=== PATIENT | male | born 1970 | race Caucasian/White ===

== ENCOUNTER 2018-04-22 20:05 | Emergency (ER) | payer BC, OTHER ==
[2018-04-22 20:12] VITALS: BMI 36.6
[2018-04-22] MEDS ORDERED: SODIUM CHLORIDE 0.9% 500 ML INFUS.BAG IV ONE (20:24)
[2018-04-22] MEDS ORDERED: ACETAMINOPHEN 1000 MG/100 ML VIAL (NON FORMULARY) IVPB ONE (20:24)
[2018-04-22] MEDS ORDERED: ACETAMINOPHEN INJECTION 100 ML IVPB ONE (20:31)
[2018-04-22 20:56] LABS: HEMATOCRIT 43.5 % (35.4-49); HEMOGLOBIN 14.7 GM/dl (11.7-16.9); MCH 30.8 pg (25.7-33.7); MCHC 33.8 g/dl (32.0-35.9); MEAN CELL VOLUME 91.3 fl (80-96); MEAN PLT VOLUME 8.6 fl (7.5-11.1); PLATELET COUNT 255 K/MM3 (134-434); RBC 4.76 M/mm3 (4.00-5.60); RDW 14.1 % (11.9-15.9); WHITE BLOOD COUNT 15.1 K/mm3 (4.0-10.8)
[2018-04-22 21:00] LABS: URINE APPEARANCE Clear; URINE BILIRUBIN Negative (NEGATIVE); URINE COLOR Yellow; URINE GLUCOSE (UA) Negative (NEGATIVE); URINE KETONE Negative (NEGATIVE); URINE LEUK ESTERASE Negative (NEGATIVE); URINE NITRITE Negative (NEGATIVE); URINE PROTEIN Negative (NEGATIVE); URINE UROBILINOGEN 0.2 (0.2-1.0)
[2018-04-22 21:10] LABS: ALBUMIN 3.7 g/dl (3.5-5.0); ALK PHOS 54 U/L (32-92); ANION GAP 5 MMOL/L (8-16); BILIRUBIN,TOTAL 0.6 mg/dl (0.2-1.0); BLOOD UREA NITROGEN 16 mg/dl (7-18); CALCIUM 8.7 mg/dl (8.4-10.2); CHLORIDE 105 mmol/L (98-107); CO2 24 mmol/L (22-28); CREATININE 1.1 mg/dl (0.6-1.3); GLUCOSE,RANDOM 112 mg/dl (74-106); POTASSIUM 4.1 mmol/L (3.5-5.1); SGOT/AST 21 U/L (10-42); SGPT/ALT 32 U/L (10-40); SODIUM 134 mmol/L (136-145); TOT PROT 6.6 g/dl (6.4-8.3)
[2018-04-22 21:10] LABS: URINE BACTERIA 2+ /hpf (NEGATIVE); URINE WBC 0-2 (0-2)
--- NOTE | 2018-04-22 21:13 | PDOC ---
History of Present Illness - General History Source: Patient Exam Limitations: No Limitations <Davion Merrill - Last Filed: 04/22/18 22:35> - History of Present Illness Initial Comments: This patient is a 47 year old male with PMHx of type 2 diabetes (on insulin), gout, and rheumatoid arthritis (not on steroids), who presents with 2 days of generalized malaise. Patient states that 2 days ago he began feeling unwell and states that "it hurts all over". He also notes some chest tightness especially when he leans forward or does any strenuous activity. He also states that he loses his breath as well during strenuous activity. Patient states that for about 2 months he was having issues with his insurance and therefore was not taking his diabetes medication. He states that he has been able to sort out his insurance and is now taking his insulin on a regular basis. Patient also notes gout flare-up on his b/l elbows that has worsened in the past two days. He states that his elbows have never been this large and hard. Patient states that he took Motrin at 11am today. He denies any recent cough, nausea, vomiting, diarrhea, or dysuria. Denies recent travel or sick contacts. He states that he has never had a stress test or echocardiogram. Surgical history: Right foot arthroscopic surgery twice. Family medical history: Diabetes, CAD, [place] Social history: Denies alcohol tobacco or IV drug use. PCP: Dr. Oziel Burirs Allergies: Penicillin <Shira Orlando - Last Filed: 04/22/18 22:54> - General Chief Complaint: Pain Stated Complaint: GENERAL BODY ACHES Time Seen by Provider: 04/22/18 20:15 Past History - Past Medical History Anemia: No Asthma: No Cancer: No Cardiac Disorders: No CVA: No COPD: No CHF: No Dementia: No Diabetes: Yes GI Disorders: No Disorders: No HTN: No Hypercholesterolemia: No Liver Disease: No Seizures: No Thyroid Disease: No Other medical history: GOUT, RA - Surgical History Abdominal Surgery: No Appendectomy: No Cardiac Surgery: No Cholecystectomy: No Lung Surgery: No Neurologic Surgery: No Orthopedic Surgery: Yes (right ankle) - Immunization History Immunization Up to Date: Yes - Suicide/Smoking/Psychosocial Hx Smoking Status: No Smoking History: Former smoker Have you smoked in the past 12 months: No Number of Cigarettes Smoked Daily: 0 If you are a former smoker, when did you quit?: teenager Information on smoking cessation initiated: No Hx Alcohol Use: No Drug/Substance Use Hx: No Substance Use Type: None Hx Substance Use Treatment: No <Davion Merrill - Last Filed: 04/22/18 22:35> <Shira Orlando - Last Filed: 04/22/18 22:54> - Past Medical History Allergies/Adverse Reactions: Allergies Allergy/AdvReac Type Severity Reaction Status Date / Time Penicillins Allergy Severe Hives Verified 05/14/16 15:54 Home Medications: Ambulatory Orders Ibuprofen [Motrin Ib] 800 mg PO ONCE 04/22/18 Sulfamethoxazole/Trimethoprim [Bactrim Ds -] 1 tab PO BID #14 tablet 04/22/18 Sulfamethoxazole/Trimethoprim [Bactrim Ds -] 1 tab PO BID #14 tablet 04/22/18 Review of Systems - Review of Systems Comments:: GENERAL/CONSTITUTIONAL: +fever, generalized malaise. No weakness. HEAD, EYES, EARS, NOSE AND THROAT: No change in vision. No ear pain or discharge. No sore throat. CARDIOVASCULAR: +chest tightness, +difficulty breathing. RESPIRATORY: No cough, wheezing, or hemoptysis. GASTROINTESTINAL: No nausea, vomiting, diarrhea or constipation. GENITOURINARY: No dysuria, frequency, or change in urination. MUSCULOSKELETAL: +b/l elbow swelling (gout). No neck or back pain. SKIN: No rash NEUROLOGIC: No headache, vertigo, loss of consciousness, or change in strength/ sensation. ENDOCRINE: No increased thirst. No abnormal weight change. HEMATOLOGIC/LYMPHATIC: No anemia, easy bleeding, or history of blood clots. ALLERGIC/IMMUNOLOGIC: No hives or skin allergy. <Shira Orlando - Last Filed: 04/22/18 22:54> *Physical Exam - Vital Signs Last Vital Signs Temp Pulse Resp BP Pulse Ox 101.5 F H 104 H 16 155/92 97 04/22/18 20:09 04/22/18 20:09 04/22/18 20:09 04/22/18 20:09 04/22/18 20:09 <Davion Merrill - Last Filed: 04/22/18 22:35> - Vital Signs Last Vital Signs Temp Pulse Resp BP Pulse Ox 101.5 F H 104 H 16 155/92 97 04/22/18 20:09 04/22/18 20:09 04/22/18 20:09 04/22/18 20:09 04/22/18 20:09 - Physical Exam Comments: GENERAL: Awake, alert, and fully oriented, in no acute distress HEAD: No signs of trauma EYES: PERRLA, EOMI, sclera anicteric, conjunctiva clear ENT: Auricles normal inspection, hearing grossly normal, nares patent. Moist mucosa LUNGS: Breath sounds equal, clear to auscultation bilaterally. No wheezes, and no crackles HEART: Regular rate and rhythm, normal S1 and S2, no murmurs, rubs or gallops ABDOMEN: Soft, nontender, normoactive bowel sounds. No guarding, no rebound. No masses EXTREMITIES: Normal range of motion, errythema and warm to touch over left elbow. FROM. No bony tenderness. B/l olecranon bursitis. No clubbing or cyanosis. NEUROLOGICAL: Cranial nerves II through XII grossly intact. Normal speech, normal gait SKIN: Warm, Dry, normal turgor, no rashes or lesions noted. <Shira Orlando - Last Filed: 04/22/18 22:54> Heart Score/ECG Review #1 ECG reviewed & interpreted by me at: 21:00 04/22/18 22:21 NSR 104, LVH, no std/jon, normal axis, normal intervals, QTC 420 msec <Davion Merrill - Last Filed: 04/22/18 22:35> ED Treatment Course - LABORATORY CBC & Chemistry Diagram: 04/22/18 20:35 04/22/18 20:35 - ADDITIONAL ORDERS Additional order review: Laboratory Results 04/22/18 04/22/18 20:53 20:35 Sodium 134 L Potassium 4.1 Chloride 105 Carbon Dioxide 24 Anion Gap 5 L BUN 16 Creatinine 1.1 Creat Clearance w eGFR > 60 Random Glucose 112 H D Calcium 8.7 Total Bilirubin 0.6 AST 21 D ALT 32 D Alkaline Phosphatase 54 Total Protein 6.6 Albumin 3.7 Urine Color Yellow Urine Appearance Clear Urine pH 5.0 Ur Specific [place] 1.020 Urine Protein Negative Urine Glucose (UA) Negative Urine Ketones Negative Urine Blood 1+ H Urine Nitrite Negative Urine Bilirubin Negative Urine Urobilinogen 0.2 Ur Leukocyte Esterase Negative Urine RBC 5-10 Urine WBC 0-2 Urine Bacteria 2+ 04/22/18 20:35 RBC 4.76 MCV 91.3 MCHC 33.8 RDW 14.1 MPV 8.6 D Neutrophils % No Result Required. Lymphocytes % No Result Required. - RADIOLOGY Radiology Studies Ordered: Category Date Time Status CHEST PA & LAT [RAD] Stat Radiology 04/22/18 20:24 Taken - Medications Given in the ED: ED Medications Discontinued Medications Generic Name Dose Route Start Last Admin Trade Name Freq PRN Reason Stop Dose Admin Acetaminophen 1,000 mg 04/22/18 20:24 04/22/18 20:45 Ofirmev Injection - IVPB 04/22/18 20:25 1,000 mg ONCE ONE Administration Sodium Chloride 1,000 ml 04/22/18 20:24 04/22/18 20:44 Normal Saline - IV 04/22/18 20:25 1,000 ml ONCE ONE Administration <Davion Merrill - Last Filed: 04/22/18 22:35> - LABORATORY CBC & Chemistry Diagram: 04/22/18 20:35 04/22/18 20:35 - ADDITIONAL ORDERS Additional order review: Laboratory Results 04/22/18 04/22/18 20:53 20:35 Sodium 134 L Potassium 4.1 Chloride 105 Carbon Dioxide 24 Anion Gap 5 L BUN 16 Creatinine 1.1 Creat Clearance w eGFR > 60 Random Glucose 112 H D Calcium 8.7 Total Bilirubin 0.6 AST 21 D ALT 32 D Alkaline Phosphatase 54 Total Protein 6.6 Albumin 3.7 Urine Color Yellow Urine Appearance Clear Urine pH 5.0 Ur Specific [place] 1.020 Urine Protein Negative Urine Glucose (UA) Negative Urine Ketones Negative Urine Blood 1+ H Urine Nitrite Negative Urine Bilirubin Negative Urine Urobilinogen 0.2 Ur Leukocyte Esterase Negative Urine RBC 5-10 Urine WBC 0-2 Urine Bacteria 2+ 04/22/18 20:35 RBC 4.76 MCV 91.3 MCHC 33.8 RDW 14.1 MPV 8.6 D Neutrophils % No Result Required. Lymphocytes % No Result Required. - Medications Given in the ED: ED Medications Discontinued Medications Generic Name Dose Route Start Last Admin Trade Name Freq PRN Reason Stop Dose Admin Acetaminophen 1,000 mg 04/22/18 20:24 04/22/18 20:45 Ofirmev Injection - IVPB 04/22/18 20:25 1,000 mg ONCE ONE Administration Sodium Chloride 1,000 ml 04/22/18 20:24 04/22/18 20:44 Normal Saline - IV 04/22/18 20:25 1,000 ml ONCE ONE Administration <Shira Orlando - Last Filed: 04/22/18 22:54> Medical Decision Making - Medical Decision Making 04/22/18 22:28 A portion of this note was documented by scribe services under my direction. I have reviewed the details of the note, within reason, and agree with the documentation with the following case summary and management plan written by me. Patient treated in the ED. Nursing notes are reviewed and incorporated into the medical decision-making. Vital signs reviewed. Peripheral IV access obtained by the nurse, laboratory studies are drawn and sent, reviewed and interpreted by myself. Vital Signs Temp Pulse Resp BP Pulse Ox 99.2 F 98 H 16 126/75 97 04/22/18 21:55 04/22/18 21:55 04/22/18 21:55 04/22/18 21:55 04/22/18 21:55 47-year-old male with history of diabetes, rheumatoid arthritis, gout presents with body aches and fevers for 2 days. The patient reports no sick contacts or recent travels. Noted that he is feeling general body aches. No cough or diarrhea or constipation. Patient has been taking Tylenol and Motrin at home. Also noted last 2 days that he was developing gout-like symptoms in his left elbow with overlying erythema. Patient has had prior symptoms like this before in the past. He is able to range his left elbow. Pt did also endorse some mild SOB but no cough. Some chest discomfort, but not exertional. Patient does appear to have flulike symptoms. Influenceza swab was sent. However , I am concerned that the patient has cellulitis over the left elbow. The patient is able to fully range left elbow without difficulty or pain. Though the patient does have gout and puts them at some what risk of septic arthritis. The patient is able to fully range without difficulty making this less likely to be a septic joint. Patient also has overlying erythema making arthrocentesis unadvisable. The blood work suggests a white count 15.1 and negative lactic acid. We'll initiate Bactrim given his penicillin ALLERGY for his cellulitis. I advised the patient that if he does not feel better in 48-72 hours to return to the ER. Patient states he feels better after the Tylenol and IV fluids and wanted to go home,. At this time, his troponin is also negative. His history and physical appears inconsistent with ACS, but advised patient to follow up with his doctors. I discussed the physical exam findings, ancillary test results and final diagnoses with the patient. I answered all of the patient's questions. The patient was satisfied with the care received and felt comfortable with the discharge plan and treatment plan. The patient will call their primary care physician within 24 hours to arrange follow-up and will return to the Emergency Department with any new, persistant or worsening symptoms. 04/22/18 22:34 Chest xray reviewed by me, pending official radiology read. No infiltrates. <Davion Merrill - Last Filed: 04/22/18 22:35> *DC/Admit/Observation/Transfer - Discharge Dispostion Decision to Admit order: No <Davion Merrill - Last Filed: 04/22/18 22:35> - Attestations Scribe Attestion: 04/22/18 21:18 Documentation prepared by Shira Orlando, acting as medical transcriber for Davion Merrill MD. <Shira Orlando - Last Filed: 04/22/18 22:54> Diagnosis at time of Disposition: Cellulitis Qualifiers: Site of cellulitis: other site Qualified Code(s): L03.818 - Cellulitis of other sites - Discharge Dispostion Disposition: HOME Condition at time of disposition: Good - Prescriptions Prescriptions: Sulfamethoxazole/Trimethoprim [Bactrim Ds -] 1 tab PO BID #14 tablet Sulfamethoxazole/Trimethoprim [Bactrim Ds -] 1 tab PO BID #14 tablet - Referrals Referrals: Oziel Burris MD [Primary Care Provider] - - Patient Instructions Printed Discharge Instructions: DI for Cellulitis -- Adult Additional Instructions: Please take the antibiotics (bactrim) every 12 hours for 7 days for your skin infection. If you do not feel better after 48 to 72 hours while on the medication, please return to the ER. Drink plenty of fluids and rest. - Post Discharge Activity Forms/Work/School Notes: Back to Work
[2018-04-22 21:36] LABS: PLATELET ESTIMATE ADEQUATE
[2018-04-22 21:56] VITALS: BP 126/75; PULSE 98; TEMP 99.2
[2018-04-22] MEDS ORDERED: SULFAMETHOXAZOLE/TRIMETHOPRIM 800MG/160MG D.S. TABLET PO ONE (22:28)
[2018-04-22] MEDS ORDERED: SULFAMETHOXAZOLE/TRIMETHOPRIM 800MG/160MG D.S. TABLET ONE (22:34)
--- NOTE | 2018-04-23 17:34 | EKG ---
Test Reason : Blood Pressure : / mmHG Vent. Rate : 104 BPM Atrial Rate : 104 BPM P-R Int : 000 ms QRS Dur : 090 ms QT Int : 320 ms P-R-T Axes : 047 -15 032 degrees QTc Int : 420 ms SINUS TACHYCARDIA MINIMAL VOLTAGE CRITERIA FOR LVH, MAY BE NORMAL VARIANT BORDERLINE ECG WHEN COMPARED WITH ECG OF 14-DEC-2015 09:55, VENT. RATE HAS INCREASED BY 36 BPM CLINICAL CORRELATION IS RECOMMENDED BASELINE ARTIFACT Confirmed by LIZ BRAN MD ([id number]) on 04/23/2018 5:34:19 PM Referred By: MD ROLLINS Confirmed By:LIZ BRAN MD
== END 2018-04-22 22:39 | disposition home or self-care (01) ==
LOC: FER 20:05
PROC: 3E033NZ Introduction of Analgesics, Hypnotics, Sedatives into Peripheral Vein, Percutaneous Approach (ICD-10-PCS; principal; 2018-04-22)
PROC: 3E0337Z Introduction of Electrolytic and Water Balance Substance into Peripheral Vein, Percutaneous Approach (ICD-10-PCS; 2018-04-22)
DX: L03.818 Cellulitis of other sites (principal); E11.9 Type 2 diabetes mellitus without complications; Z79.4 Long term (current) use of insulin; M06.9 Rheumatoid arthritis, unspecified
CPT/HCPCS: 36415; 71046-TC-FY; 80053; 81003; 81015; 83605; 84484; 85025; 87040; 87086; 87804; 93005; 99282-25; J0131

== ENCOUNTER 2018-04-26 15:38 | Emergency (ER) | payer BC ==
--- NOTE | 2018-04-26 15:40 | PDOC ---
History of Present Illness - General Chief Complaint: Revisit, Lab Variance Stated Complaint: POSITIVE BC Time Seen by Provider: 04/26/18 15:40 - History of Present Illness Initial Comments: 04/26/18 15:41 47 year old male with PMH DM (type 2, on insulin), RA, gout presented to ED for positive blood culture results. Pt states he was called today and told to return to the Emergency Department for evaluation.Pt was seen at [facility] 04/22/18, complaining of generalized malaise and gout flare up, pt was febrile 101.5, received tylenol and fluids, pt had leukocytosis, EKG showed LVH. It was thought that the patient had cellulitis to his elbow and was discharged with Bactrim. Pt states his elbows feel similar to baseline with his gout. PT states he took steroids 2 days ago to aid in his symptoms. Allergies - PCN Past History - Past Medical History Allergies/Adverse Reactions: Allergies Allergy/AdvReac Type Severity Reaction Status Date / Time Penicillins Allergy Severe Hives Verified 05/14/16 15:54 Home Medications: Ambulatory Orders Ibuprofen [Motrin Ib] 800 mg PO ONCE 04/22/18 Sulfamethoxazole/Trimethoprim [Bactrim Ds -] 1 tab PO BID #14 tablet 04/22/18 Sulfamethoxazole/Trimethoprim [Bactrim Ds -] 1 tab PO BID #14 tablet 04/22/18 Clindamycin [Cleocin -] 600 mg PO TID #60 capsule 04/26/18 Anemia: No Asthma: No Cancer: No Cardiac Disorders: No CVA: No COPD: No CHF: No Dementia: No Diabetes: Yes GI Disorders: No Disorders: No HTN: No Hypercholesterolemia: No Liver Disease: No Seizures: No Thyroid Disease: No - Surgical History Abdominal Surgery: No Appendectomy: No Cardiac Surgery: No Cholecystectomy: No Lung Surgery: No Neurologic Surgery: No Orthopedic Surgery: Yes (right ankle) - Immunization History Immunization Up to Date: Yes - Suicide/Smoking/Psychosocial Hx Smoking Status: No Smoking History: Former smoker Have you smoked in the past 12 months: No Number of Cigarettes Smoked Daily: 0 If you are a former smoker, when did you quit?: teenager Hx Alcohol Use: No Drug/Substance Use Hx: No Substance Use Type: None Hx Substance Use Treatment: No Review of Systems - Review of Systems Able to Perform ROS?: Yes Comments:: 04/26/18 16:36 General: compains of generalized weakness, body aches. denies fever, chills, night sweats. HEENT: denies sore throat, rhinorrhea, ear pain. Heart: denies chest pain, palpitations, syncope, lower extremity swelling, diaphoresis. Respiratory: denies shortness of breath, cough, sputum production, hemoptysis. Abdomen: denies abdominal pain, nausea, vomiting, diarrhea, constipation, blood in stool. : denies dysuria, increased urinary frequency, hematuria, urinary incontinence , flank pain. Back: denies back pain. Musculoskeletal: admits to bilateral elbow swelling. Neurological: denies headache, dizziness, numbness, tingling, weakness. Skin: denies rash, laceration, abrasion. *Physical Exam - Physical Exam Comments: 04/26/18 16:37 Constitutional: Well-nourished, Well-developed, appearing stated age. HEENT: head is normocephalic, atraumatic. EOMI. PERRLA. Neck: supple. Full ROM. Heart: regular rhythm. no murmurs, rubs or gallops. Lungs: clear to auscultation bilaterally. no crackles, rhonchi or wheezing. no stridor. Abdomen: soft, nontender. normal bowel sounds. no rebound, guarding, masses. Extremities: Peripheral pulses intact. No lower extremity edema. tophi deformity to bilateral elbows, with overlying erythema, no streaking, no fluctuance. Neurological: CN 2-12 grossly intact. Moves all four extremities. Psych: awake, alert, oriented x3. Follows commands. Answers questions appropriately. ED Treatment Course - LABORATORY CBC & Chemistry Diagram: 04/26/18 16:14 04/26/18 16:14 Medical Decision Making - Medical Decision Making 47 year old male with PMH RA, gout, DM presented to ED for positive blood culture. 1 blood culture grew Leuconostoc mesenteroides. Initial Vital Signs Temp Pulse Resp BP Pulse Ox 98.5 F 71 17 132/80 100 04/26/18 15:38 04/26/18 15:38 04/26/18 15:38 04/26/18 15:38 04/26/18 15:38 Afebrile. No tachycardia. No tachypnea. Mild hypertension. No hypoxia on room air. 10/09/18 16:[address] Theo Carlson. 04/26/18 17:03 Pt reassessed, complaining of generalized body aches. - Motrin 600 mg PO ordered 04/26/18 17:05 CBC WBC 15.9 K/mm3 (4.0-10.8) H 04/26/18 16:14 RBC 4.53 M/mm3 (4.00-5.60) 04/26/18 16:14 Hgb 13.3 GM/dl (11.7-16.9) 04/26/18 16:14 Hct 41.2 % (35.4-49) 04/26/18 16:14 MCV 91.1 fl (80-96) 04/26/18 16:14 MCH 29.3 pg (25.7-33.7) 04/26/18 16:14 MCHC 32.2 g/dl (32.0-35.9) 04/26/18 16:14 RDW 13.8 % (11.9-15.9) 04/26/18 16:14 Plt Count 301 K/MM3 (134-434) 04/26/18 16:14 MPV 8.8 fl (7.5-11.1) 04/26/18 16:14 Absolute Neuts (auto) 12.7 K/mm3 04/26/18 16:14 Neutrophils % No Result Required. 04/26/18 16:14 Lymphocytes % No Result Required. 04/26/18 16:14 Leukocytosis. - WBC was 15.1 on 04/22/18 - Possibly secondary to steroid use CMP Sodium 135 mmol/L (136-145) L 04/26/18 16:14 Potassium 4.5 mmol/L (3.5-5.1) 04/26/18 16:14 Chloride 102 mmol/L (98-107) 04/26/18 16:14 Carbon Dioxide 22 mmol/L (22-28) 04/26/18 16:14 Anion Gap 11 MMOL/L (8-16) 04/26/18 16:14 BUN 24 mg/dl (7-18) H 04/26/18 16:14 Creatinine 1.1 mg/dl (0.6-1.3) 04/26/18 16:14 Creat Clearance w eGFR > 60 (>60) 04/26/18 16:14 Random Glucose 199 mg/dl (74-106) H D 04/26/18 16:14 Calcium 9.3 mg/dl (8.4-10.2) 04/26/18 16:14 Total Bilirubin 0.5 mg/dl (0.2-1.0) 04/26/18 16:14 AST 21 U/L (10-42) 04/26/18 16:14 ALT 33 U/L (10-40) 04/26/18 16:14 Alkaline Phosphatase 57 U/L (32-92) 04/26/18 16:14 Total Protein 6.9 g/dl (6.4-8.3) 04/26/18 16:14 Albumin 3.6 g/dl (3.5-5.0) 04/26/18 16:14 Mild dehydration noted. 04/26/18 17:[address] Venegas, who states that he believes that his symptoms could be due to his RA, but that he can see the patient in the office tomorrow if he calls for an appointment tomorrow. He states that if the patient is not on any immuno-suppressive drugs such as anti-TNF factors, that he can be discharged. He suggests switching the antibiotic from Bactrim to Clindamycin. - Pt is unsure of all of his medications - Criss paged 04/26/18 18:00 I called the patient's pharmacy, [facility] ([phone]) to verify with the pharmacist that the patient was not on any immunosuppresant medications , including anti-TNF factors, which he was not. - Pt stated he is not taking any medication for his RA. I called another pharmacy listed in the system, to further clarify that the patient was not on any immunosuppresant medications, [facility] store [id number] ). The pharmacist listed all of his medications he had filled in the last month, and stated based on their records he is not on any immunosuppresant drugs. 04/26/18 18:14 I spoke with the patient about the plan for care. He agrees and would like to be discharged. He states he will follow up with Dr. Venegas tomorrow. I told the patient to stop taking his Bactrim and take the Clindamycin I prescribed. He stated he understood. I discussed return precautions, such as fever, chills, worsening body aches, nausea, vomiting, ill-appearance or anything else concerning, that he was to immediately return to the Emergency Department. He stated he understood. *DC/Admit/Observation/Transfer Diagnosis at time of Disposition: Abnormal laboratory test - Discharge Dispostion Disposition: HOME Condition at time of disposition: Stable Decision to Admit order: No - Prescriptions Prescriptions: Clindamycin [Cleocin -] 600 mg PO TID #60 capsule - Referrals Referrals: Jhon Venegas MD [Staff Physician] - - Patient Instructions Additional Instructions: You were seen today for an abnormal lab result. The same test was repeated today, to confirm if it was a contaminate or not. You blood work revealed a continued elevate white blood cell count, which could indicate infection, or could be a side effect of taking the prednisone you stated you took 2 days ago. If the new blood cultures come back positive, you will be informed via telephone call. I have included a copy of your lab results and microbiology results in your discharge paperwork. Follow up with Dr. Venegas in the office tomorrow. I spoke with him today, he is aware of your case, he stated he will be in the office tomorrow and you should call in the morning for an appointment. It is very important that you follow up with him. Your care is not complete until you follow up. Tell the office that you were seen in the Emergency Department, that Dr. Venegas is aware of you, and wants to see you as soon as possible. I included a referral in the discharge paperwork. Follow up with your primary care doctor within 2 days. Call their office tomorrow and make an appointment for as soon as possible. Tell them you were seen in the Emergency Department. Your care is not complete until you follow up. If you develop a fever, chills, worsening body aches, chest pain, shortness of breath, passing out, or any other new, worsening or concerning symptoms, IMMEDIATELY return to the Emergency Department. - Post Discharge Activity
[2018-04-26 15:42] VITALS: BP 132/80; PULSE 71; TEMP 98.5; BMI 36.7
--- NOTE | 2018-04-26 15:53 | PDOC ---
Attending Attestation - Resident Resident Name: Kathy Aguiar - ED Attending Attestation I have performed the following: I have examined & evaluated the patient, The case was reviewed & discussed with the resident, I agree w/resident's findings & plan, Exceptions are as noted - HPI HPI: 04/26/18 17:31 47yo M PMH IDDM, RA, gout presents to the emergency Department after he was called back for positive blood culture. Pt found to grow Leuconostoc Mesenteroides in 1 bottle. He was seen four days ago for bodyaches, fevers, and was treated for possible cellulitis of the L elbow with bactrim. Since then, he reports feeling significantly better. States he is not 100% yet as he still feels a bit "run down" but he denies any fevers since discharge. He reports b/l elbow pain due to gout flare for which he started prednisone 2 days ago. Otherwise, denies chills, stiff neck, sore throat, cp, sob, abd pain, urinary sxs, LE edema, or rashes, headache, focal weakness/numbness. - Physicial Exam PE: 04/26/18 17:41 GENERAL: Awake, alert, and fully oriented, in no acute distress HEAD: No signs of trauma EYES: PERRLA, EOMI, sclera anicteric, conjunctiva clear ENT: Auricles normal inspection, hearing grossly normal, nares patent, oropharynx clear without exudates. Moist mucosa NECK: Normal ROM, supple, no lymphadenopathy LUNGS: Breath sounds equal, clear to auscultation bilaterally. No wheezes, and no crackles HEART: Regular rate and rhythm, normal S1 and S2, no murmurs, rubs or gallops ABDOMEN: Soft, nontender, normoactive bowel sounds. No guarding, no rebound. No masses EXTREMITIES: B/l elbows with tophi with overlying erythema, tenderness but no induration, streaking, fluctuance. Otherwise, normal range of motion, no edema. No clubbing or cyanosis. WWP. NEUROLOGICAL: Normal speech, cranial nerves intact, 5/5 strength in all 4 extremities, normal sensation to light touch in all 4 extremities SKIN: Warm, Dry, normal turgor, no rashes or lesions noted. - Medical Decision Making 04/26/18 17:43 47yo M hx DM, RA, gout presents to the ED with positive blood culture in 1 bottle. Pt feeling better, no fevers since DC 4 days ago. Vitals here are stable , exam normal, erythema over elbow tophi is more consistent with gout and is not indurated or fluctuant to suggest infection. Pt is not toxic appearing. Labs /blood cx were redrawn, WBC up to 15.9 from 15.1 four days ago, however, pt started prednisone 2 days ago so leukocytosis likely 2/2 marginalization. Case discussed with Dr. Whiting (ID) who agrees with plan to redraw blood cx and also agrees leukocytosis likely 2/2 prednisone. He recommends covering pt with clindamycin until the new blood cx results. He states Leuconostoc is most often seen in pt's who are immunecomprimised. Pt is not on any anti TNF meds or immunemodulating meds for RA. We will confirm with the pt's pharmacy what his med list is. 04/26/18 18:17 Pt's pharmacies both called, pt not on any anti-tnf meds. Pt feels well and remains non toxic appearing. Will DC pt on clinda and to f/u with Dr. Whiting fl[place] I discussed the physical exam findings, ancillary test results and final diagnoses with the patient. I answered all of the patient's questions. The patient was satisfied with the care received and felt comfortable with the discharge plan and treatment plan. The patient will call their primary care physician within 24 hours to arrange follow-up and will return to the Emergency Department with any new, persistent or worsening symptoms.
[2018-04-26 16:39] LABS: HEMATOCRIT 41.2 % (35.4-49); HEMOGLOBIN 13.3 GM/dl (11.7-16.9); MCH 29.3 pg (25.7-33.7); MCHC 32.2 g/dl (32.0-35.9); MEAN CELL VOLUME 91.1 fl (80-96); MEAN PLT VOLUME 8.8 fl (7.5-11.1); PLATELET COUNT 301 K/MM3 (134-434); RBC 4.53 M/mm3 (4.00-5.60); RDW 13.8 % (11.9-15.9); WHITE BLOOD COUNT 15.9 K/mm3 (4.0-10.8)
[2018-04-26 17:01] LABS: ALBUMIN 3.6 g/dl (3.5-5.0); ALK PHOS 57 U/L (32-92); ANION GAP 11 MMOL/L (8-16); BILIRUBIN,TOTAL 0.5 mg/dl (0.2-1.0); BLOOD UREA NITROGEN 24 mg/dl (7-18); CALCIUM 9.3 mg/dl (8.4-10.2); CHLORIDE 102 mmol/L (98-107); CO2 22 mmol/L (22-28); CREATININE 1.1 mg/dl (0.6-1.3); GLUCOSE,RANDOM 199 mg/dl (74-106); POTASSIUM 4.5 mmol/L (3.5-5.1); SGOT/AST 21 U/L (10-42); SGPT/ALT 33 U/L (10-40); SODIUM 135 mmol/L (136-145); TOT PROT 6.9 g/dl (6.4-8.3)
[2018-04-26] MEDS ORDERED: IBUPROFEN 600 MG TABLET (FP) PO ONE (17:03)
[2018-04-26 18:33] LABS: PLATELET ESTIMATE ADEQUATE
== END 2018-04-26 18:14 | disposition home or self-care (01) ==
LOC: FER 15:38
DX: R79.9 Abnormal finding of blood chemistry, unspecified (principal)
CPT/HCPCS: 36415; 80053; 85025; 87040; 99281-25

== ENCOUNTER 2018-06-27 12:31 | Emergency (ER) | payer BC ==
[2018-06-27 12:47] VITALS: TEMP 99.3; BMI 37.3
--- NOTE | 2018-06-27 12:51 | PDOC ---
History of Present Illness - General Chief Complaint: Chest Pain Stated Complaint: CHEST PAIN, FEVER History Source: Patient Exam Limitations: No Limitations - History of Present Illness Initial Comments: 47 yo M with a hx of IDDM, gout, and HTN who presents today the emergency department with chest pain for 3x days. Per the patient, the pain is pressure like, 5/10 in severity, intermittent, and increases in severity when lying on his left side and exertion. He endorses associative nausea, but denies SOB, fever, chills, diaphoresis, and headaches. Concurrently, the patient is also presenting with a gout flare similar in quality to his previous episode one month ago. He states he's taken "handfuls" of ibuprofen and aspirin at a time throughout the day over the weekend for pain treatment. Denies SI, HI, and self harm ideation. His wrist is red and painful to the touch typical of his previous episodes. Denies the following: visual changes, vomiting, abdominal pain, dysuria, hematuria, diarrhea, hematochezia, melena, and leg pain/ swelling. Denies recent travels, recent immobilization, cancer hx, hx of DVT/PE , and recent surgeries and use of hormonal medications. Pmhx: Refer to above Shx: None allergies: Penicillin Social: Denies tobacco, alcohol, and substance abuse. Past History - Past Medical History Allergies/Adverse Reactions: Allergies Allergy/AdvReac Type Severity Reaction Status Date / Time Penicillins Allergy Severe Hives Verified 06/27/18 12:47 Home Medications: Ambulatory Orders Ibuprofen [Motrin Ib] 800 mg PO ONCE 04/22/18 Allopurinol 300 mg PO DAILY 06/27/18 Atorvastatin Ca [Lipitor] 40 mg PO HS 06/27/18 Colchicine 0.6 mg PO DAILY 06/27/18 Diclofenac Sodium 75 mg PO DAILY 06/27/18 Esomeprazole Magnesium [Nexium 24Hr] 20 mg PO ONCE PRN #20 tablet. 06/27/18 Losartan Potassium 25 mg PO DAILY 06/27/18 Prednisone [Prednisone 50 MG TABLETS] 50 mg PO ONCE #3 tablet 06/27/18 Anemia: No Asthma: No Cancer: No Cardiac Disorders: No CVA: No COPD: No CHF: No Dementia: No Diabetes: Yes GI Disorders: No Disorders: No HTN: No Hypercholesterolemia: No Liver Disease: No Seizures: No Thyroid Disease: No - Surgical History Abdominal Surgery: No Appendectomy: No Cardiac Surgery: No Cholecystectomy: No Lung Surgery: No Neurologic Surgery: No Orthopedic Surgery: Yes (right ankle) - Immunization History Immunization Up to Date: Yes - Suicide/Smoking/Psychosocial Hx Smoking Status: No Smoking History: Never smoked Have you smoked in the past 12 months: No Number of Cigarettes Smoked Daily: 0 If you are a former smoker, when did you quit?: teenager Information on smoking cessation initiated: No Hx Alcohol Use: No Drug/Substance Use Hx: No Substance Use Type: None Hx Substance Use Treatment: No Review of Systems - Review of Systems Able to Perform ROS?: Yes Is the patient limited Estonian proficient: No Constitutional: No: Chills, Diaphoresis, Fever, Weakness HEENTM: No: Recent change in vision, Ear Pain, Nose Pain, Throat Pain, Mouth Pain Respiratory: Yes: SOB with Exertion. No: Cough, Shortness of Breath, Hemoptysis Cardiac (ROS): Yes: Chest Pain. No: Lightheadedness, Palpitations, Syncope, Chest Tightness ABD/GI: Yes: Nausea. No: Constipated, Diarrhea, Poor Appetite, Poor Fluid Intake, Rectal Bleeding, Vomiting, Indigestion, Abdominal cramping, Tarry Stools : No: Burning, Dysuria, Hematuria, Urgency Musculoskeletal: No: Back Pain, Joint Pain, Neck Pain Integumentary: No: Dryness, Erythema, Flushing, Rash Neurological: No: Headache, Numbness, Tremors, Weakness, Ataxia, Dizziness Psychiatric: No: Stressors Endocrine: No: Unexplained Weight Gain Hematologic/Lymphatic: No: Anemia *Physical Exam - Vital Signs Last Vital Signs Temp Pulse Resp BP Pulse Ox 99.3 F 105 H 16 148/93 100 06/27/18 12:45 06/27/18 12:45 06/27/18 12:45 06/27/18 12:45 06/27/18 12:45 - Physical Exam General Appearance: Yes: Nourished, Appropriately Dressed, Obese. No: Apparent Distress, Intoxicated HEENT: positive: EOMI, MARGARITA, Normal ENT Inspection, Normal Voice, Symmetrical, TMs Normal, Pharynx Normal, Hearing Grossly Normal. negative: Pale Conjunctivae , Scleral Icterus (R), Scleral Icterus (L), Muffled/Hoarse voice, Pharyngeal Erythema, Tonsillar Exudate, Tonsillar Erythema, Nasal Congestion, Sinus Tenderness, Excessive drooling Neck: positive: Trachea midline. negative: Tender, Lymphadenopathy (R), Lymphadenopathy (L), Tender lateral, Tender midline Respiratory/Chest: positive: Lungs Clear, Normal Breath Sounds. negative: Chest Tender, Respiratory Distress, Accessory Muscle Use, Crackles, Rales, Rhonchi, Stridor, Wheezing Cardiovascular: positive: Regular Rhythm, S1, S2, Tachycardia. negative: Systolic Murmur Gastrointestinal/Abdominal: positive: Normal Bowel Sounds. negative: Tender, Distended Lymphatic: negative: Adenopathy Musculoskeletal: positive: Normal Inspection. negative: CVA Tenderness, Vertebral Tenderness Extremity: positive: Normal Capillary Refill, Tender (right wrist with palpation ), Swelling, Erythema. negative: Normal Inspection (right hand swollen, erythematous, and tender to the touch. extends from right MCP to distal portion of the right wrist. 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 negative: EOM Palsy, Sensory Deficit Moderate Sedation - Procedure Monitoring Vital Signs: Procedure Monitoring Vital Signs Temperature 99.3 F 06/27/18 12:45 Pulse Rate 105 H 06/27/18 12:45 Respiratory Rate 16 06/27/18 12:45 Blood Pressure 148/93 06/27/18 12:45 O2 Sat by Pulse Oximetry (%) 100 06/27/18 12:45 Heart Score/ECG Review - History History: Slightly suspicious - Electrocardiogram EKG: Normal - Age Age: 45-65 - Risk Factors Risk Factors Heart Score: Yes Hx Hypertension, Yes Hx Diabetes, Yes Positive family hx of cardiac disease, Yes Hx Obesity Based on the list above the patient has:: >/=3 risk factors or Hx atherosclerotic disease ED Treatment Course - LABORATORY CBC & Chemistry Diagram: 06/27/18 13:00 06/27/18 13:00 Medical Decision Making - Medical Decision Making 47 yo M with a hx of IDDM, gout, and HTN who presents today the emergency department with chest pain for 3x days. Initial vitals: Initial Vital Signs Temp Pulse Resp BP Pulse Ox 99.3 F 105 H 16 148/93 100 06/27/18 12:45 06/27/18 12:45 06/27/18 12:45 06/27/18 12:45 06/27/18 12:45 work up ddx: gastritis vs GERD vs ACS vs PNA vs PE vs URI. likely gastritis given the patients overuse of NSAIDs over the weekend due to gout flare up. patient admits to use 6+ ibuprofen 200 mg tablets multiple times per day over the weekend for pain relief. patients vital signs within normal limits save for heart rate. given he has no risk factors but is tachycardic and thus cant be PERCd out, will get d-dimer. labs: cbc, cmp, ekg, cxr, d-dimer, trops/ Laboratory Tests 06/27/18 06/27/18 06/27/18 13:00 13:00 13:00 WBC 11.6 H RBC 4.58 Hgb 13.2 Hct 40.9 MCV 89.4 MCH 28.7 MCHC 32.1 RDW 15.0 Plt Count 289 D MPV 8.1 Absolute Neuts (auto) 8.4 H Neutrophils % 72.8 Lymphocytes % 13.5 D Monocytes % 12.0 H Eosinophils % 1.2 D Basophils % 0.5 Nucleated RBC % 0 PT with INR 12.90 INR 1.09 PTT (Actin FS) 30.5 D-Dimer Sodium 138 Potassium 4.3 Chloride 103 Carbon Dioxide 25 Anion Gap 10 BUN 13 Creatinine 1.1 Creat Clearance w eGFR > 60 Random Glucose 107 H Calcium 8.7 Total Bilirubin 0.5 AST 18 ALT 27 Alkaline Phosphatase 65 Creatine Kinase 58 Troponin I < 0.02 Total Protein 7.0 Albumin 3.2 L Blood Type Antibody Screen 06/27/18 06/27/18 13:00 13:59 WBC RBC Hgb Hct MCV MCH MCHC RDW Plt Count MPV Absolute Neuts (auto) Neutrophils % Lymphocytes % Monocytes % Eosinophils % Basophils % Nucleated RBC % PT with INR INR PTT (Actin FS) D-Dimer 2176 H Sodium Potassium Chloride Carbon Dioxide Anion Gap BUN Creatinine Creat Clearance w eGFR Random Glucose Calcium Total Bilirubin AST ALT Alkaline Phosphatase Creatine Kinase Troponin I Total Protein Albumin Blood Type A POSITIVE Antibody Screen Negative EKG did not show ST elevations or depressions. d-dimer was significantly elevated (likely given acute gout flare up) but will order CTA chest to rule out PE. trop was negative (1x needed given chest pain >24hours. CTA was negative for PE. the patient was reassessed and was chest pain free and his heart rate below 100 and agrees to follow up with his primary medical doctor within 72 hours after discharge. I discussed the physical exam findings, ancillary test results, and final diagnoses with the patient. I answered all of the patients questions to their satisfaction. The patient was satisfied with the care received and felt comfortable with the discussed discharge and treatment plan and accepted it. They agreed to follow up with their primary medical physical physician within 24 -72 hours after discharge for follow up care and management. Dispo: Discharge *DC/Admit/Observation/Transfer Diagnosis at time of Disposition: Chest pain Qualifiers: Chest pain type: unspecified Qualified Code(s): R07.9 - Chest pain, unspecified Acute gout Qualifiers: Gout site: unspecified site Gout etiology: unspecified cause Qualified Code(s) : M10.9 - Gout, unspecified - Discharge Dispostion Disposition: HOME Decision to Admit order: No - Prescriptions Prescriptions: Esomeprazole Magnesium [Nexium 24Hr] 20 mg PO ONCE PRN #20 tablet.dr SALMERON Reason: Nausea And/Or Vomiting Prednisone [Prednisone 50 MG TABLETS] 50 mg PO ONCE #3 tablet - Referrals Referrals: Jhon Mohan MD [Staff Physician] - [facility] [Provider Group] - Patient Instructions Printed Discharge Instructions: DI for Atypical Chest Pain Additional Instructions: You were seen in the emergency department for the evaluation of your right hand pain and chest pain. Your cardiac labs, xray, and CT of the chest were within normal limits. We treated you with steroids and sent a prescription to your pharmacy. Please take this as directed. Please return to the emergency department if you have worsening symptoms or new concerning symptoms such as fever, chills, nausea, vomiting, and worsening chest pain. Please follow up with your primary medical doctor and remote advisor within 72 hours after discharge for follow up care and management. Thank you. - Post Discharge Activity Forms/Work/School Notes: Back to Work
[2018-06-27] MEDS ORDERED: SODIUM CHLORIDE 1,000 ML IV STA (13:39)
[2018-06-27] MEDS ORDERED: ACETAMINOPHEN 1000 MG/100 ML VIAL (NON FORMULARY) IVPB ONE (13:39)
[2018-06-27] MEDS ORDERED: ACETAMINOPHEN INJECTION 100 ML IVPB ONE (13:45)
[2018-06-27 14:12] LABS: BASO % 0.5 % (0-2.0); EOS % 1.2 % (0-4.5); HEMATOCRIT 40.9 % (35.4-49); HEMOGLOBIN 13.2 GM/dL (11.7-16.9); LYMPH % 13.5 % (8-40); MCH 28.7 pg (25.7-33.7); MCHC 32.1 g/dl (32.0-35.9); MEAN CELL VOLUME 89.4 fl (80-96); MEAN PLT VOLUME 8.1 fl (7.5-11.1); NEUT % 72.8 % (42.8-82.8); PLATELET COUNT 289 K/MM3 (134-434); RBC 4.58 M/mm3 (4.00-5.60); WHITE BLOOD COUNT 11.6 K/mm3 (4.0-10.0)
[2018-06-27 14:28] LABS: ALBUMIN 3.2 g/dl (3.4-5.0); ALK PHOS 65 U/L (45-117); ANION GAP 10 MMOL/L (8-16); BILIRUBIN,TOTAL 0.5 mg/dL (0.2-1); BLOOD UREA NITROGEN 13 mg/dL (7-18); CALCIUM 8.7 mg/dL (8.5-10.1); CHLORIDE 103 mmol/L (98-107); CO2 25 mmol/L (21-32); CREATININE 1.1 mg/dL (0.55-1.3); GLUCOSE,RANDOM 107 mg/dL (74-106); POTASSIUM 4.3 mmol/L (3.5-5.1); SGOT/AST 18 U/L (15-37); SGPT/ALT 27 U/L (13-61); SODIUM 138 mmol/L (136-145)
[2018-06-27 14:32] LABS: INR 1.09 (0.83-1.09); PROTHROMBIN TIME (PATIENT) 12.9 SEC (9.7-13.0)
[2018-06-27 14:35] LABS: ACTIVATED PTT 30.5 SECONDS (25.2-36.5)
[2018-06-27] MEDS ORDERED: DOCUSATE SODIUM 100 MG CAPSULE (FP) PO ONE ×2 (15:10→15:21)
[2018-06-27] MEDS ORDERED: predniSONE 20 MG TABLET (UD) PO ONE (15:10)
[2018-06-27] MEDS ORDERED: oxyCODONE HCL 5 MG TABLET PO ONE (15:10)
[2018-06-27] MEDS ORDERED: predniSONE 20 MG TABLET (UD) ONE (15:20)
[2018-06-27] MEDS ORDERED: oxyCODONE HCL 5 MG TABLET ONE (15:21)
--- NOTE | 2018-06-27 16:15 | PDOC ---
Attending Attestation - Resident Resident Name: Thompson Coe - ED Attending Attestation I have performed the following: I have examined & evaluated the patient, The case was reviewed & discussed with the resident, I agree w/resident's findings & plan, Exceptions are as noted - HPI HPI: 06/27/18 16:16 The patient is a 47 year old male, with a PMH of insulin dependent diabetes, gout who presents to the emergency department with 3 day history of chest pain. Patient describes the chest pain as 5/10 in severity, intermittent, and exacerbated when lying on the left side with associated nausea. Denies SOB. Pt states that the pain comes and goes, and he is currently pain free. Of note, pt has been suffering from a gout flare in his R wrist. Pt has been taking many tablets of ibuprofen daily to treat it. Pt notes redness and swelling to his R wrist, which is typical of his usual gout flares. The patient denies headache and dizziness.Denies fever, chills, nausea, vomit, diarrhea and constipation.Denies dysuria, frequency, urgency and hematuria. Allergies: NKA Past surgical history: None reported. Social history: No reported alcohol, drug or cigarette use. - Physicial Exam PE: 06/27/18 16:21 GENERAL: Awake, alert, and fully oriented, in no acute distress. HEAD: No signs of trauma EYES: PERRLA, EOMI, sclera anicteric, conjunctiva clear ENT: Auricles normal inspection, hearing grossly normal, nares patent, oropharynx clear without exudates. Moist mucosa NECK: Nontender, no stepoffs, Normal ROM, supple, no lymphadenopathy, JVD, or masses LUNGS: Breath sounds equal, clear to auscultation bilaterally. No wheezes, and no crackles HEART: Regular rate and rhythm, normal S1 and S2, no murmurs, rubs or gallops ABDOMEN: Soft, nontender, normoactive bowel sounds. No guarding, no rebound. No masses EXTREMITIES: + R wrist with erythema and edema NEUROLOGICAL: Cranial nerves II through XII intact. 5/5 strength and sensation in all extremities, Normal speech, normal gait, normal cerebellar function SKIN: Warm, Dry, normal turgor, no rashes or lesions noted. - Medical Decision Making 06/27/18 16:21 47 M with intermittent chest pain. Likely gastritis/GERD from excessive NSAID use. ACS unlikely given nonischemic EKG. Pt with no DVT risk factors but is tachycardic in ED. Will send ddimer to r/o PE. Pt's R wrist swelling and redness is consistent with pt's prior gout flares. - Labs, trop, ddimer - CXR 06/27/18 16:26 Ddimer elevated Labs otherwise unremarkable Trop negative, sufficient to r/o ACS in context of >48 hours of chest pain and normal EKG. CTA chest ordered to r/o PE. 06/27/18 17:08 CTA negative for PE. Pt reassessed - vitals now normalized Pt no longer with chest pain after meds. Pt is well appearing, with normal vitals. Clinically stable for DC at this time. I discussed the physical exam findings, ancillary test results and final diagnoses with the patient. I answered all of the patient's questions. The patient was satisfied with the care received and felt comfortable with the discharge plan and treatment plan. The patient agrees to follow up with the primary care physician within 24-72 hours.
[2018-06-27] MEDS ORDERED: FAMOTIDINE 20 MG/50 ML IVPB 20 MG/50 ML MG IVPB ONE ×2 (16:24→17:21)
[2018-06-27] MEDS ORDERED: MAG HYDROX/AL HYDROX/SIMETH 30 ML UNIT-DOSE CUP PO ONE (16:24)
[2018-06-27] MEDS ORDERED: MAG HYDROX/AL HYDROX/SIMETH 30 ML UNIT-DOSE CUP ONE (17:21)
[2018-06-27 17:26] VITALS: BP 153/84; PULSE 97
--- NOTE | 2018-06-28 12:59 | EKG ---
Test Reason : Blood Pressure : / mmHG Vent. Rate : 098 BPM Atrial Rate : 098 BPM P-R Int : 144 ms QRS Dur : 092 ms QT Int : 330 ms P-R-T Axes : 046 -11 035 degrees QTc Int : 421 ms NORMAL SINUS RHYTHM MINIMAL VOLTAGE CRITERIA FOR LVH, MAY BE NORMAL VARIANT BORDERLINE ECG WHEN COMPARED WITH ECG OF 22-APR-2018 21:00, NO SIGNIFICANT CHANGE WAS FOUND Confirmed by Peng Quiroz ([id number]) on 06/28/2018 12:58:54 PM Referred By: Confirmed By:Peng Quiroz
== END 2018-06-27 17:49 | disposition home or self-care (01) ==
LOC: JER 12:31
PROC: 3E033NZ Introduction of Analgesics, Hypnotics, Sedatives into Peripheral Vein, Percutaneous Approach (ICD-10-PCS; principal; 2018-06-27)
PROC: 3E033GC Introduction of Other Therapeutic Substance into Peripheral Vein, Percutaneous Approach (ICD-10-PCS; 2018-06-27)
PROC: 3E0337Z Introduction of Electrolytic and Water Balance Substance into Peripheral Vein, Percutaneous Approach (ICD-10-PCS; 2018-06-27)
DX: M10.9 Gout, unspecified (principal); R07.9 Chest pain, unspecified; I10 Essential (primary) hypertension; E11.9 Type 2 diabetes mellitus without complications
CPT/HCPCS: 36415; 71046-TC-FY; 71275-TC; 80053; 82550; 84484; 85025; 85379; 85610; 85730; 86850; 86900; 86901; 93005; 93010; 99284-25; J0131; J7030

== ENCOUNTER 2018-08-07 12:23 | Emergency (ER) | payer BC ==
[2018-08-07] MEDS ORDERED: INSULIN (LEVEMIR) 100 UNITS/ML UNITS SQ ONE (12:33)
[2018-08-07] MEDS ORDERED: SODIUM CHLORIDE 1,000 ML IV STA (12:33)
[2018-08-07] MEDS ORDERED: INSULIN REGULAR HUMAN 100 UNITS/ML *VIAL SQ ONE (12:35)
[2018-08-07] MEDS ORDERED: NAPROXEN 375 MG TABLET (FP) PO ONE (12:36)
[2018-08-07] MEDS ORDERED: HEMOQUE TEST 1 EACH EACH ONE ×2 (12:37→12:41)
[2018-08-07 12:39] VITALS: TEMP 98.8; BMI 37.3
[2018-08-07] MEDS ORDERED: NAPROXEN 375 MG TABLET (FP) ONE (12:49)
[2018-08-07 13:06] LABS: BASO % 0.2 % (0-2.0); EOS % 0.4 % (0-4.5); HEMATOCRIT 41.3 % (35.4-49); HEMOGLOBIN 13.8 GM/dl (11.7-16.9); LYMPH % 20.1 % (8-40); MCH 30.2 pg (25.7-33.7); MCHC 33.3 g/dl (32.0-35.9); MEAN CELL VOLUME 90.6 fl (80-96); MEAN PLT VOLUME 8.1 fl (7.5-11.1); MONO % 6.9 % (3.8-10.2); NEUT % 72.4 % (42.8-82.8); PLATELET COUNT 311 K/MM3 (134-434); RBC 4.56 M/mm3 (4.00-5.60); RDW 14.4 % (11.9-15.9)
[2018-08-07 13:21] LABS: PH,URINE 5.5 (4.5-8); URINE APPEARANCE Clear; URINE BILIRUBIN Negative (NEGATIVE); URINE COLOR Yellow; URINE GLUCOSE (UA) Negative (NEGATIVE); URINE KETONE Negative (NEGATIVE); URINE LEUK ESTERASE Negative (NEGATIVE); URINE NITRITE Negative (NEGATIVE); URINE PROTEIN Negative (NEGATIVE); URINE UROBILINOGEN 0.2 (0.2-1.0)
--- NOTE | 2018-08-07 13:24 | PDOC ---
History of Present Illness - General Chief Complaint: Blood Sugar Problem Stated Complaint: HIGH BLOOD SUGAR, BACK PAIN Time Seen by Provider: 08/07/18 12:24 History Source: Patient Exam Limitations: No Limitations - History of Present Illness Initial Comments: 08/07/18 13:18 CHIEF COMPLAINT: "My sugar is high and I twisted my lower back this morning." HISTORY OF PRESENT ILLNESS: This is a 47-year-old man with a history of diabetes mellitus. He normally takes 50 units of long-acting insulin a day along with coverage based on fingersticks. He states he ran out of his insulin , both types, about a week ago. Because of a change in insurance, he has been having trouble refilling his prescription. His doctor prescribed insulin for him recently. He finally successfully filled it with the mail order pharmacy and the insulin is on its way to his house with a tracking date for delivery of tomorrow. Patient complains of polyuria and polydipsia over the course of this week. His fingersticks at home have been as high as 500. He states his fingerstick at home prior to coming to the ED was 500. He denies nausea, vomiting or fever. He denies dysuria. There was a little bit of snow on the ground that was melting this morning, and while walking his dog, the dog pulled on the leash and he fell back onto his back. He complains of left posterior lateral mid to lower back pain. He denies any spine pain. He denies any numbness or weakness or pain in his legs. He denies any pain in his hips. He got up and was able to ambulate without difficulty. He describes his discomfort as a soreness along the posterior axillary line in the lower back. There was no head injury, neck injury, chest injury, or extremity injury. REVIEW OF SYSTEMS: GENERAL/CONSTITUTIONAL: No fever or chills. No weakness. No weight change. HEAD, EYES, EARS, NOSE AND THROAT: + Vision sometimes gets blurry when the sugar goes over 500. No ear pain or discharge. No sore throat. CARDIOVASCULAR: No chest pain or shortness of breath. RESPIRATORY: No cough, wheezing, or hemoptysis. GASTROINTESTINAL: No nausea, vomiting, diarrhea or constipation. No rectal bleeding. GENITOURINARY: No dysuria. + Positive urinary frequency and increased thirst. MUSCULOSKELETAL: Positive left lateral lower back discomfort. No difficulty walking. No spine discomfort. No extremity discomfort. SKIN AND BREASTS: No rash or easy bruising. NEUROLOGIC: No headache, vertigo, loss of consciousness, or loss of sensation. PSYCHIATRIC: No depression or anxiety. ENDOCRINE: No increased thirst. No abnormal weight change. HEMATOLOGIC/LYMPHATIC: No anemia, easy bleeding, or history of blood clots. ALLERGIC/IMMUNOLOGIC: No hives or skin allergy. No latex allergy. Past History - Past Medical History Allergies/Adverse Reactions: Allergies Allergy/AdvReac Type Severity Reaction Status Date / Time Penicillins Allergy Severe Hives Verified 08/07/18 12:24 Home Medications: Ambulatory Orders Allopurinol [Zyloprim -] 100 mg PO DAILY 08/07/18 Insulin (Novolog) [Novolog -] 0 units SQ ASDIR 08/07/18 Naproxen [Naprosyn -] 375 mg PO BID PRN #10 tablet 08/07/18 Trudeo 08/07/18 Anemia: No Asthma: No Cancer: No Cardiac Disorders: No CVA: No COPD: No CHF: No Dementia: No Diabetes: Yes GI Disorders: No Disorders: No HTN: Yes Hypercholesterolemia: No Liver Disease: No Seizures: No Thyroid Disease: No Other medical history: gout, ra - Surgical History Abdominal Surgery: No Appendectomy: No Cardiac Surgery: No Cholecystectomy: No Lung Surgery: No Neurologic Surgery: No Orthopedic Surgery: Yes (right ankle) - Immunization History Immunization Up to Date: Yes - Suicide/Smoking/Psychosocial Hx Smoking Status: No Smoking History: Never smoked Have you smoked in the past 12 months: No Number of Cigarettes Smoked Daily: 0 If you are a former smoker, when did you quit?: teenager Information on smoking cessation initiated: No Hx Alcohol Use: No Drug/Substance Use Hx: No Substance Use Type: None Hx Substance Use Treatment: No *Physical Exam - Vital Signs Last Vital Signs Temp Pulse Resp BP Pulse Ox 98.8 F 106 H 20 146/100 98 08/07/18 12:23 08/07/18 12:23 08/07/18 12:23 08/07/18 12:23 08/07/18 12:23 - Physical Exam Comments: 08/07/18 13:23 GENERAL: The patient is awake, alert, and fully oriented, in no acute distress. He is moderately obese. HEAD: Normal with no signs of trauma. EYES: Pupils equal, round and reactive to light, extraocular movements intact, sclera anicteric, conjunctiva clear. ENT: Ears normal, nares patent, oropharynx clear without exudates. Moist mucous membranes. NECK: Normal range of motion, supple without lymphadenopathy, JVD, or masses. LUNGS: Breath sounds equal, clear to auscultation bilaterally. No wheezes, and no crackles. No rib tenderness. HEART: Regular rate and rhythm, normal S1 and S2 without murmur, rub or gallop. ABDOMEN: Soft, nontender, normoactive bowel sounds. No guarding, no rebound. No masses. BACK: There is no bony spine tenderness from the neck all the way to the coccyx. There is mild soft tissue tenderness in the left posterior axillary line along the lower back. EXTREMITIES: Normal range of motion, no edema. No clubbing or cyanosis. No cords, erythema, or tenderness. No hip tenderness. Normal range of motion of the knees and hips. Normal gait. NEUROLOGICAL: Cranial nerves II through XII grossly intact. Normal speech, normal gait. PSYCH: Normal mood, normal affect. SKIN: Warm, Dry, normal turgor, no rashes or lesions noted. No bruising or ecchymosis. Moderate Sedation - Procedure Monitoring Vital Signs: Procedure Monitoring Vital Signs Temperature 98.8 F 08/07/18 12:23 Pulse Rate 106 H 08/07/18 12:23 Respiratory Rate 20 08/07/18 12:23 Blood Pressure 146/100 08/07/18 12:23 O2 Sat by Pulse Oximetry (%) 98 08/07/18 12:23 ED Treatment Course - LABORATORY CBC & Chemistry Diagram: 08/07/18 12:39 08/07/18 12:39 - Medications Given in the ED: ED Medications Discontinued Medications Generic Name Dose Route Start Last Admin Trade Name Freq PRN Reason Stop Dose Admin Insulin Detemir 50 units 08/07/18 12:33 08/07/18 13:00 Levemir Vial SQ 08/07/18 12:34 50 units ONCE ONE Administration Naproxen 375 mg 08/07/18 12:36 08/07/18 12:50 Naprosyn - PO 08/07/18 12:37 375 mg ONCE ONE Administration Medical Decision Making - Medical Decision Making 08/07/18 13:35 39-year-old man with a history of diabetes, ran out of insulin 1 week ago and is awaiting his new delivery tomorrow. He states his sugar at home prior to coming in was greater than 500, however, here in the ED his glucose was improved. He was given a dose of his long-acting insulin, and although we initially planned to give short acting insulin for the elevated glucose at home , he did not get the short acting insulin here because his glucose was better. His other complaint is slipping and falling this morning. On examination he has some musculoskeletal soreness in the left posterior lateral back, without any evidence of bony injuries. He is ambulating fine, and all joints and spine appear normal. No x-ray imaging was indicated. Impression: Diabetes mellitus with poor control secondary to being off medications, glucose now 171. Urinalysis is negative for infection Musculoskeletal sprain of the lower back WBC is elevated to 14,000 with no evidence of infection. No fever, no cough, no dysuria, and no other symptoms. UA negative for infection. Plan: Patient given his long-acting insulin 1 here, his delivery will come to his home tomorrow from his mail order pharmacy. He was advised to adhere to a strict diabetic diet, drink plenty of water, and to take his insulin when it arrives tomorrow per his usual regimen. Patient was further advised to take Naprosyn 375 mg twice a day as needed for muscular pain in the back. Laboratory Results - last 24 hr 08/07/18 08/07/18 08/07/18 12:39 12:39 12:46 WBC 14.0 H RBC 4.56 Hgb 13.8 Hct 41.3 MCV 90.6 MCH 30.2 MCHC 33.3 RDW 14.4 Plt Count 311 MPV 8.1 Absolute Neuts (auto) 10.1 Neutrophils % 72.4 Lymphocytes % 20.1 D Monocytes % 6.9 D Eosinophils % 0.4 Basophils % 0.2 Sodium 137 Potassium 4.0 Chloride 101 Carbon Dioxide 26 Anion Gap 10 BUN 24 H Creatinine 1.2 Creat Clearance w eGFR > 60 Random Glucose 171 H Calcium 9.2 Total Bilirubin 0.5 AST 26 D ALT 38 Alkaline Phosphatase 60 Total Protein 6.3 L Albumin 3.7 Urine Color Yellow Urine Appearance Clear Urine pH 5.5 Ur Specific Mildred 1.020 Urine Protein Negative Urine Glucose (UA) Negative Urine Ketones Negative Urine Blood Negative Urine Nitrite Negative Urine Bilirubin Negative Urine Urobilinogen 0.2 Ur Leukocyte Esterase Negative *DC/Admit/Observation/Transfer Diagnosis at time of Disposition: Hyperglycemia due to type 2 diabetes mellitus Qualifiers: Diabetes mellitus manager intermediate insulin use: with fpc use Qualified Code(s): E11.65 - Type 2 diabetes mellitus with hyperglycemia; Z79.4 - ocean transportation intermediary (current ) use of insulin Low back sprain Qualifiers: Encounter type: initial encounter Qualified Code(s): S33.5XXA - Sprain of ligaments of lumbar spine, initial encounter - Discharge Dispostion Disposition: HOME Condition at time of disposition: Stable Decision to Admit order: No - Prescriptions Prescriptions: Naproxen [Naprosyn -] 375 mg PO BID PRN #10 tablet PRN Reason: Back Pain - Referrals - Patient Instructions Printed Discharge Instructions: DI for Hyperglycemia -- Adult Additional Instructions: Today you were evaluated for high blood sugar. The sugar in the emergency department was 171. You were given a dose of 50 units of long-acting insulin which will cover you for the rest of today. Tomorrow you should restart your normal long-acting insulin with short acting coverage as needed based on your finger stick results. You were also evaluated for twisting your lower back after falling on the snow. No x-rays are indicated as your examination is showing only a muscle strain. You may take Naprosyn 375 mg twice a day if needed for pain. - Post Discharge Activity
[2018-08-07 13:25] LABS: ALBUMIN 3.7 g/dl (3.5-5.0); ALK PHOS 60 U/L (32-92); ANION GAP 10 MMOL/L (8-16); BILIRUBIN,TOTAL 0.5 mg/dl (0.2-1.0); BLOOD UREA NITROGEN 24 mg/dl (7-18); CALCIUM 9.2 mg/dl (8.4-10.2); CHLORIDE 101 mmol/L (98-107); CO2 26 mmol/L (22-28); CREATININE 1.2 mg/dl (0.6-1.3); GLUCOSE,RANDOM 171 mg/dl (74-106); SGOT/AST 26 U/L (10-42); SGPT/ALT 38 U/L (10-40); SODIUM 137 mmol/L (136-145); TOT PROT 6.3 g/dl (6.4-8.3)
[2018-08-07 13:50] VITALS: BP 143/88; PULSE 98
== END 2018-08-07 13:50 | disposition home or self-care (01) ==
LOC: FER 12:23
PROC: 3E013VG Introduction of Insulin into Subcutaneous Tissue, Percutaneous Approach (ICD-10-PCS; principal; 2018-08-07)
DX: E11.65 Type 2 diabetes mellitus with hyperglycemia (principal); Z79.4 Long term (current) use of insulin
CPT/HCPCS: 36415; 80053; 81003; 82962; 85025; 99285-25

== ENCOUNTER 2018-09-13 15:12 | Emergency (ER) | payer BC ==
--- NOTE | 2018-09-13 15:19 | PDOC ---
History of Present Illness - General Chief Complaint: Injury Stated Complaint: FLAP LACERATION TO LEFT LOWER LEG Time Seen by Provider: 09/13/18 15:19 - History of Present Illness Initial Comments: 47yo M with history of HTN, DM presenting with laceration on his left leg that occurred 12 hours prior to arrival. Patient states that he kicked what he thought was a box in his dark garage, but actually hit against metal. In the light, he noticed he had a laceration and cleaned it out with peroxide. It did not bleed very much and is not painful. He presents to the ED now because his made him come in. Last tetanus shot was about two years ago. Denies fevers , chills, chest pain, or shortness of breath. Past History - Past Medical History Allergies/Adverse Reactions: Allergies Allergy/AdvReac Type Severity Reaction Status Date / Time Penicillins Allergy Severe Hives Verified 09/13/18 15:15 Home Medications: Ambulatory Orders Allopurinol 300 mg PO DAILY 09/13/18 Atorvastatin Ca [Lipitor] 40 mg PO HS 09/13/18 Cholecalciferol (Vitamin D3) [Vitamin D3] 1,000 unit PO DAILY 09/13/18 Colchicine 0.6 mg PO DAILY 09/13/18 Insulin Glargine,Hum.rec.anlog [Toujeo Solostar] 52 unit SQ AM 09/13/18 Insulin Sliding Scale [Novolog Vial Sliding Scale -] See Protocol SQ ASDIR 09/13 Losartan Potassium 50 mg PO DAILY 09/13/18 Naproxen [Naprosyn -] 375 mg PO DAILY 09/13/18 Anemia: No Asthma: No Cancer: No Cardiac Disorders: No CVA: No COPD: No CHF: No Dementia: No Diabetes: Yes GI Disorders: No Disorders: No HTN: Yes Hypercholesterolemia: No Liver Disease: No Seizures: No Thyroid Disease: No - Surgical History Abdominal Surgery: No Appendectomy: No Cardiac Surgery: No Cholecystectomy: No Lung Surgery: No Neurologic Surgery: No Orthopedic Surgery: Yes (right ankle) - Immunization History Immunization Up to Date: Yes - Suicide/Smoking/Psychosocial Hx Smoking Status: No Smoking History: Never smoked Have you smoked in the past 12 months: No Number of Cigarettes Smoked Daily: 0 If you are a former smoker, when did you quit?: teenager Hx Alcohol Use: No Drug/Substance Use Hx: No Substance Use Type: None Hx Substance Use Treatment: No Review of Systems - Review of Systems Comments:: Constitutional: no fever, no chills HEENT: no throat pain, no dysphagia Cardiovascular: no chest pain, no palpitations Respiratory: no cough, no shortness of breath Gastrointestinal: no abdominal pain, no nausea Genitourinary: no dysuria, no frequency Musculoskeletal: no myalgia, no arthralgia Skin: +laceration, no itching Neurologic: no headache, no dizziness *Physical Exam - Physical Exam Comments: General: Awake, alert, and fully oriented, in no acute distress Head: No signs of trauma Eyes: EOMI, sclera anicteric ENT: Moist mucus membranes Neck: Normal ROM, supple Lungs: Lungs clear, Normal breath sounds Cardio: Regular rhythm, S1 and S2 present Abdomen: Soft, nondistended Extremities: Normal range of motion, Distal pulses present SKIN: 2cm laceration on the anteromedial aspect of the left lower extremity, distal to the calf, hemostatic, without discharge or fluctuance; Otherwise warm , Dry, normal turgor Neurologic: Cranial nerves II through XII grossly intact. Normal speech Procedures - Laceration/Wound Repair Left Medial Leg Wound Length: to 2.5 cm Wound's Depth, Shape: superficial Irrigated w/ Saline: Yes Anesthesia: 2% Lidocaine Wound Repaired With: Sutures Suture Size/Type: 5:0, other (monocryl) Number of Sutures: 2 Sterile Dressing Applied: Yes Progress: Patient tolerated procedure well Medical Decision Making - Medical Decision Making 47yo M with history of HTN, DM presenting with laceration on his left leg that occurred 12 hours prior to arrival. Laceration on anteromedial aspect of left leg is ~2 cm flap, however, some skin has already torn off, Decision made to approximate part of the wound and repair it with two sutures. Smaller opening of skin remaining which will lower the risk of infection Please see procedure note. Patient discharged. 09/13/18 16:28 *DC/Admit/Observation/Transfer Diagnosis at time of Disposition: Laceration - Discharge Dispostion Disposition: HOME Condition at time of disposition: Stable - Referrals - Patient Instructions Printed Discharge Instructions: DI for Laceration Repair Additional Instructions: You came to the ED for laceration of your left leg. The wound was cleaned and you received two stitches. Keep the area clean. Apply an antibiotics ointment like mupirocin, neosporin, or bacitracin twice a day. Return to the ED in ten days for wound check and stitches removal. Immediate medical attention is required if you experience: redness or hardness around the wound, pain or tenderness, a red streak, yellow or green discharge oozing from the wound, fever or chills. If you think you have an emergency, call for medical help right away. - Post Discharge Activity Forms/Work/School Notes: Back to Work
[2018-09-13 15:33] VITALS: BP 150/97; PULSE 96; TEMP 98.5; BMI 37.3
--- NOTE | 2018-09-13 15:39 | PDOC ---
Attending Attestation - Resident Resident Name: Lillie Maya - ED Attending Attestation I have performed the following: I have examined & evaluated the patient, The case was reviewed & discussed with the resident, I agree w/resident's findings & plan, Exceptions are as noted - HPI HPI: 09/13/18 16:15 Reviewed Residents HPI - Physicial Exam PE: 09/13/18 16:15 Reviewed Residents PE - Medical Decision Making 09/13/18 16:16 47 years old with laceration to left lower extremity tetanus up-to-date some avulsion of skin lateral aspect laceration after thorough irrigation Patient may or scar very strict infection return instructions discussed with patient. Findings, need follow-up and strict return instructions discussed patient.
== END 2018-09-13 16:19 | disposition home or self-care (01) ==
LOC: FER 15:12
PROC: 0HQLXZZ Repair Left Lower Leg Skin, External Approach (ICD-10-PCS; principal; 2018-09-13)
DX: S81.812A Laceration without foreign body, left lower leg, initial encounter (principal); W26.8XXA Contact with other sharp object(s), not elsewhere classified, initial encounter; Y93.89 Activity, other specified; Y92.008 Other place in unspecified non-institutional (private) residence as the place of occurrence of the external cause; I10 Essential (primary) hypertension; E11.9 Type 2 diabetes mellitus without complications; Z87.891 Personal history of nicotine dependence
CPT/HCPCS: 99281-25

== ENCOUNTER 2018-09-21 15:21 | Emergency (ER) | payer BC ==
[2018-09-21 15:30] VITALS: BP 143/94; PULSE 97; TEMP 98.7; BMI 37.3
--- NOTE | 2018-09-21 16:08 | PDOC ---
Suture Removal/Wound Check HPI - History of Present Illness History Source: Yes: Patient Exam Limitations: Yes: No Limitations Treated at: [facility] ED - Previous ED Treatment Type of procedure performed on last visit: Yes: Laceration Repair Tetanus Immunization: Yes: Up to Date <Pravin Leonard - Last Filed: 09/21/18 16:05> - Onset of Previous Treatment Date of Occurence: 09/13/18 Comment:: This patient is a 48 year old male with PMHx of HTN, DM, presenting for suture removal. Patient was seen on 09/13 after sustaining a laceration on left lower leg from getting cut by a piece of metal from kicking a box. 09/21/18 16:11 <Shira Orlando - Last Filed: 09/21/18 16:15> - History of Present Illness Chief Complaint: Suture/Staple Removal(Here) Stated Complaint: SUTURE REMOVAL Time Seen by Provider: 09/21/18 15:49 Past History - Past Medical History Anemia: No Asthma: No Cancer: No Cardiac Disorders: No CVA: No COPD: No CHF: No Dementia: No Diabetes: Yes GI Disorders: No Disorders: No HTN: Yes Hypercholesterolemia: No Liver Disease: No Seizures: No Thyroid Disease: No - Surgical History Abdominal Surgery: No Appendectomy: No Cardiac Surgery: No Cholecystectomy: No Lung Surgery: No Neurologic Surgery: No Orthopedic Surgery: Yes (right ankle) - Immunization History Immunization Up to Date: Yes - Suicide/Smoking/Psychosocial Hx Smoking Status: No Smoking History: Never smoked Have you smoked in the past 12 months: No Number of Cigarettes Smoked Daily: 0 If you are a former smoker, when did you quit?: teenager Information on smoking cessation initiated: No Hx Alcohol Use: No Drug/Substance Use Hx: No Substance Use Type: None Hx Substance Use Treatment: No <Pravin Leonard - Last Filed: 09/21/18 16:05> <Shira Orlando - Last Filed: 09/21/18 16:15> - Past Medical History Allergies/Adverse Reactions: Allergies Allergy/AdvReac Type Severity Reaction Status Date / Time Penicillins Allergy Severe Hives Verified 09/21/18 15:22 Home Medications: Ambulatory Orders Allopurinol 300 mg PO DAILY 09/13/18 Atorvastatin Ca [Lipitor] 40 mg PO HS 09/13/18 Cholecalciferol (Vitamin D3) [Vitamin D3] 1,000 unit PO DAILY 09/13/18 Colchicine 0.6 mg PO DAILY 09/13/18 Insulin Glargine,Hum.rec.anlog [Esdras Pham] 52 unit SQ AM 09/13/18 Insulin Sliding Scale [Novolog Vial Sliding Scale -] See Protocol SQ ASDIR 09/13 Losartan Potassium 50 mg PO DAILY 09/13/18 Naproxen [Naprosyn -] 375 mg PO DAILY 09/13/18 Suture Removal/Wound Check PE - Physical Exam Laceration/Wound Check Symptoms: reports: Redness (mild surruond erythema), Improved (well-healing) Location of Laceration/Wound: left: Leg (LLE) <Shira Orlando - Last Filed: 09/21/18 16:15> *Review of Systems - Review of Systems Integumentary: Yes: Erythema (mild surrounding erythema) <Shira Orlando - Last Filed: 09/21/18 16:15> *Physical Exam - Vital Signs Last Vital Signs Temp Pulse Resp BP Pulse Ox 98.7 F 97 H 20 143/94 98 09/21/18 15:22 09/21/18 15:22 09/21/18 15:22 09/21/18 15:22 09/21/18 15:22 <Pravin Leonard - Last Filed: 09/21/18 16:05> - Vital Signs Last Vital Signs Temp Pulse Resp BP Pulse Ox 98.7 F 97 H 20 143/94 98 09/21/18 15:22 09/21/18 15:22 09/21/18 15:22 09/21/18 15:22 09/21/18 15:22 <Shira Orlando - Last Filed: 09/21/18 16:15> Moderate Sedation - Procedure Monitoring Vital Signs: Procedure Monitoring Vital Signs Temperature 98.7 F 09/21/18 15:22 Pulse Rate 97 H 09/21/18 15:22 Respiratory Rate 20 09/21/18 15:22 Blood Pressure 143/94 09/21/18 15:22 O2 Sat by Pulse Oximetry (%) 98 09/21/18 15:22 <Pravin Leonadr S - Last Filed: 09/21/18 16:05> - Procedure Monitoring Vital Signs: Procedure Monitoring Vital Signs Temperature 98.7 F 09/21/18 15:22 Pulse Rate 97 H 09/21/18 15:22 Respiratory Rate 20 09/21/18 15:22 Blood Pressure 143/94 09/21/18 15:22 O2 Sat by Pulse Oximetry (%) 98 09/21/18 15:22 <Shira Orlando - Last Filed: 09/21/18 16:15> Medical Decision Making - Medical Decision Making * 2 sutures were removed. * Cleaned with alcohol prep pads * 3 Steri-strips were placed. * Covered with 2x2 gauze. <Shira Orlando - Last Filed: 09/21/18 16:15> *DC/Admit/Observation/Transfer - Discharge Dispostion Decision to Admit order: No <Pravin Leonard - Last Filed: 09/21/18 16:05> - Attestations Scribe Attestion: 09/21/18 16:13 Documentation prepared by Shira Orlando, acting as pesticide use medical coordinator for Pravin Leonard MD. <Shira Orlando - Last Filed: 09/21/18 16:15> Diagnosis at time of Disposition: Visit for suture removal - Discharge Dispostion Disposition: HOME Condition at time of disposition: Improved - Patient Instructions Printed Discharge Instructions: DI for Suture Removal - Post Discharge Activity Forms/Work/School Notes: Back to Work
== END 2018-09-21 16:10 | disposition home or self-care (01) ==
LOC: FER 15:21
DX: Z48.02 Encounter for removal of sutures (principal)
CPT/HCPCS: 99281-25

== ENCOUNTER 2018-09-27 21:28 | Emergency (ER) | payer BC ==
[2018-09-27 21:42] VITALS: BMI 36.2
[2018-09-27 21:57] LABS: BASO % 0.7 % (0-2.0); EOS % 0.6 % (0-4.5); HEMATOCRIT 41.2 % (35.4-49); HEMOGLOBIN 13.6 GM/dl (11.7-16.9); LYMPH % 18.3 % (8-40); MCH 30.2 pg (25.7-33.7); MCHC 32.9 g/dl (32.0-35.9); MEAN CELL VOLUME 91.6 fl (80-96); MEAN PLT VOLUME 9.4 fl (7.5-11.1); NEUT % 73.4 % (42.8-82.8); PLATELET COUNT 200 K/MM3 (134-434); RBC 4.49 M/mm3 (4.00-5.60); RDW 14.4 % (11.9-15.9); WHITE BLOOD COUNT 11.3 K/mm3 (4.0-10.8)
[2018-09-27] MEDS ORDERED: SODIUM CHLORIDE 1,000 ML IV STA ×2 (22:04→22:37)
[2018-09-27 22:05] LABS: ALBUMIN 2.8 g/dl (3.4-5.0); ALK PHOS 51 U/L (45-117); ANION GAP 6 MMOL/L (8-16); BILIRUBIN,TOTAL 0.4 mg/dl (0.2-1); BLOOD UREA NITROGEN 18 mg/dl (7-18); CALCIUM 7.2 mg/dl (8.5-10); CHLORIDE 105 mmol/L (98-107); CO2 21 mmol/L (21-32); CREATININE 0.9 mg/dl (0.55-1.3); POTASSIUM 3.3 mmol/L (3.5-5.1); SGOT/AST 19 U/L (15-37); SGPT/ALT 28 U/L (13-61); SODIUM 132 mmol/L (136-145); TOT PROT 4.9 g/dl (6.4-8.2)
[2018-09-27 22:10] LABS: GLUCOSE,RANDOM 426 mg/dl (74-106)
--- NOTE | 2018-09-27 22:37 | PDOC ---
History of Present Illness <Annmarie De La Rosa - Last Filed: 09/27/18 22:32> - General History Source: Patient Exam Limitations: No Limitations - History of Present Illness Initial Comments: 09/27/18 23:19 The patient is a 48 year old male, with a significant past medical history of DM (on insulin) who presents to the emergency department with uncontrolled blood sugars for over a week. The patient notes his blood sugar has been 300- 400 this entire week, however, today's meter stick came back extremely high which prompted his arrival to the ED. The patient notes his symptoms are associated with tiredness, dry mouth and urgency. The patient reports he ran out of blood pressure medication 2d ago. The patient notes he was driving home from work and had to side puller to take a quick nap. The patient notes his diet has not been controlled this week due to having 4 birthday parties. The patient denies chest pain, shortness of breath, headache or dizziness. The patient denies fever, chills, nausea, vomit, diarrhea or constipation. Allergies: Penicillins Past surgical history: None reported Social history: None reported <Shayy Baker - Last Filed: 09/27/18 23:21> - General Chief Complaint: Blood Sugar Problem Stated Complaint: ELEVATED BLOOD SUGAR Time Seen by Provider: 09/27/18 21:37 Past History - Past Medical History Anemia: No Asthma: No Cancer: No Cardiac Disorders: No CVA: No COPD: No CHF: No Dementia: No Diabetes: Yes GI Disorders: No Disorders: No HTN: Yes Hypercholesterolemia: Yes Liver Disease: No Seizures: No Thyroid Disease: No Other medical history: GOUT - Surgical History Abdominal Surgery: No Appendectomy: No Cardiac Surgery: No Cholecystectomy: No Lung Surgery: No Neurologic Surgery: No Orthopedic Surgery: Yes (right ankle) - Immunization History Immunization Up to Date: Yes - Suicide/Smoking/Psychosocial Hx Smoking Status: No Smoking History: Never smoked Have you smoked in the past 12 months: No Number of Cigarettes Smoked Daily: 0 If you are a former smoker, when did you quit?: teenager Information on smoking cessation initiated: No Hx Alcohol Use: No Drug/Substance Use Hx: No Substance Use Type: None Hx Substance Use Treatment: No <Annmarie De La Rosa - Last Filed: 09/27/18 22:32> <Shayy Baker - Last Filed: 09/27/18 23:21> - Past Medical History Allergies/Adverse Reactions: Allergies Allergy/AdvReac Type Severity Reaction Status Date / Time Penicillins Allergy Severe Hives Verified 09/27/18 21:30 Home Medications: Ambulatory Orders Allopurinol 300 mg PO DAILY 09/13/18 Atorvastatin Ca [Lipitor] 40 mg PO HS 09/13/18 Cholecalciferol (Vitamin D3) [Vitamin D3] 1,000 unit PO DAILY 09/13/18 Colchicine 0.6 mg PO DAILY 09/13/18 Insulin Glargine,Hum.rec.anlog [Toujeo Solostar] 52 unit SQ AM 09/13/18 Insulin Sliding Scale [Novolog Vial Sliding Scale -] See Protocol SQ ASDIR 09/13 Losartan Potassium 50 mg PO DAILY 09/13/18 Naproxen [Naprosyn -] 375 mg PO DAILY 09/13/18 Review of Systems - Review of Systems Able to Perform ROS?: Yes Comments:: 09/27/18 23:20 See HPI. All other systems reviewed and unremarkable All Other Systems: Reviewed and Negative <Shayy Baker - Last Filed: 09/27/18 23:21> *Physical Exam - Vital Signs Last Vital Signs Temp Pulse Resp BP Pulse Ox 97.9 F 90 16 170/108 H 98 09/27/18 21:37 09/27/18 21:37 09/27/18 21:37 09/27/18 21:37 09/27/18 21:37 <Annmarie De La Rosa - Last Filed: 09/27/18 22:32> - Vital Signs Last Vital Signs Temp Pulse Resp BP Pulse Ox 97.9 F 90 16 170/108 H 98 09/27/18 21:37 09/27/18 21:37 09/27/18 21:37 09/27/18 21:37 09/27/18 21:37 - Physical Exam Comments: 09/27/18 23:21 NAD EOMI, MARGARITA MMM, OP WNL NCAT, no midline cervical tenderness RRR, nl s1/s2, no m/r/g CTABL, no w/r/r Soft, NTND (+)1 cm by cm erythema with black wound. No visible pherolins. No evidence of cellulitis. No edema, WWP, Neuro grossly intact, gait WNL, moving all 4 A&O x 3, mood/affect WNL. <Shayy Baker - Last Filed: 09/27/18 23:21> Moderate Sedation - Procedure Monitoring Vital Signs: Procedure Monitoring Vital Signs Temperature 97.9 F 09/27/18 21:37 Pulse Rate 90 09/27/18 21:37 Respiratory Rate 16 09/27/18 21:37 Blood Pressure 170/108 H 09/27/18 21:37 O2 Sat by Pulse Oximetry (%) 98 09/27/18 21:37 <Annmarie De La Rosa - Last Filed: 09/27/18 22:32> - Procedure Monitoring Vital Signs: Procedure Monitoring Vital Signs Temperature 97.9 F 09/27/18 21:37 Pulse Rate 90 09/27/18 21:37 Respiratory Rate 16 09/27/18 21:37 Blood Pressure 170/108 H 09/27/18 21:37 O2 Sat by Pulse Oximetry (%) 98 09/27/18 21:37 <Shayy Baker - Last Filed: 09/27/18 23:21> ED Treatment Course - LABORATORY CBC & Chemistry Diagram: 09/27/18 21:37 09/27/18 21:37 - ADDITIONAL ORDERS Additional order review: Laboratory Results 09/27/18 09/27/18 09/27/18 21:48 21:45 21:37 Sodium 132 L Potassium 3.3 L Chloride 105 Carbon Dioxide 21 Anion Gap 6 L BUN 18 Creatinine 0.9 Creat Clearance w eGFR > 60 POC Glucometer 464 Random Glucose 426 H* Calcium 7.2 L Total Bilirubin 0.4 AST 19 ALT 28 Alkaline Phosphatase 51 Total Protein 4.9 L Albumin 2.8 L Acetone, Qual Negative 09/27/18 09/27/18 21:48 21:37 RBC 4.49 MCV 91.6 MCHC 32.9 RDW 14.4 MPV 9.4 D Neutrophils % 73.4 Lymphocytes % 18.3 Monocytes % 7.0 Eosinophils % 0.6 Basophils % 0.7 D POC Glucometer 464 <Annmarie De La Rosa - Last Filed: 09/27/18 22:32> - LABORATORY CBC & Chemistry Diagram: 09/27/18 21:37 09/27/18 21:37 - ADDITIONAL ORDERS Additional order review: Laboratory Results 09/27/18 09/27/18 09/27/18 21:48 21:46 21:45 VBG pH 7.36 POC VBG pCO2 44.7 POC VBG pO2 59.7 H VBG HCO3 24.8 VBG O2 Sat (Armond) 89.7 H VBG Base Excess -0.3 Sodium Potassium Chloride Carbon Dioxide Anion Gap BUN Creatinine Creat Clearance w eGFR POC Glucometer 464 Random Glucose Calcium Total Bilirubin AST ALT Alkaline Phosphatase Total Protein Albumin Acetone, Qual Negative 09/27/18 21:37 VBG pH POC VBG pCO2 POC VBG pO2 VBG HCO3 VBG O2 Sat (Armond) VBG Base Excess Sodium 132 L Potassium 3.3 L Chloride 105 Carbon Dioxide 21 Anion Gap 6 L BUN 18 Creatinine 0.9 Creat Clearance w eGFR > 60 POC Glucometer Random Glucose 426 H* Calcium 7.2 L Total Bilirubin 0.4 AST 19 ALT 28 Alkaline Phosphatase 51 Total Protein 4.9 L Albumin 2.8 L Acetone, Qual 09/27/18 09/27/18 21:48 21:37 RBC 4.49 MCV 91.6 MCHC 32.9 RDW 14.4 MPV 9.4 D Neutrophils % 73.4 Lymphocytes % 18.3 Monocytes % 7.0 Eosinophils % 0.6 Basophils % 0.7 D POC Glucometer 464 - Medications Given in the ED: ED Medications Discontinued Medications Generic Name Dose Route Start Last Admin Trade Name Freq PRN Reason Stop Dose Admin Sodium Chloride 1,000 mls @ 1,000 mls/hr 09/27/18 22:04 09/27/18 22:16 Normal Saline - IV 09/27/18 23:03 1,000 mls/hr ASDIR STA Administration <Shayy Baker - Last Filed: 09/27/18 23:21> Medical Decision Making - Medical Decision Making 09/27/18 22:33 48yoM hx of HTN, DM, chronic intermittent noncompliance w/ medications presents w/ polydipsia, polyuria found FS to be crit high at home, likely 2/2 recurrent dietary indescretion this week (4 birthday parties). - labs, IVF, FS control - continue home medications - reinforce dietary compliance - f/u PMD in 3d as scheduled - bacitractin and bandange to lower extremity wound - DC. <Annmarie De La Rosa - Last Filed: 09/27/18 22:32> *DC/Admit/Observation/Transfer <Annmarie De La Rosa - Last Filed: 09/27/18 22:32> - Attestations Scribe Attestion: 09/27/18 23:21 Documentation prepared by Shayy Baker, acting as medical associate for Annmarie De La Rosa MD, <Shayy Baker - Last Filed: 09/27/18 23:21> Diagnosis at time of Disposition: Hyperglycemia due to type 2 diabetes mellitus - Discharge Dispostion Disposition: HOME Condition at time of disposition: Stable - Patient Instructions Additional Instructions: Follow a DIABETIC DIET: no sugar or sugar-y drinks (no soda, no juice, avoid sugar in coffee and tea) no bread, rice, pasta Yes eat lots of vegetables and protein Fruit in moderation avoid alcohol. Continue your home medications. Clean your leg wound 2x daily with soap and water. apply Neosporin ointment and cover with clean, dry bandage. Return to ER for worstening symptoms pus drainage from leg wound redness expanding around leg wound or streaking up leg fever over 100.4 unable to tolerate food or drink.
[2018-09-27 23:03] LABS: VENOUS PC02 44.7 mmHg (41-51); VENOUS PH 7.36 (7.31-7.41); VENOUS PO2 59.7 mmHg (30-40)
[2018-09-27] MEDS ORDERED: LOSARTAN POTASSIUM 50 MG TABLET (FP) PO ONE (23:36)
[2018-09-28 00:04] VITALS: TEMP 97.8
[2018-09-28] MEDS ORDERED: INSULIN REGULAR HUMAN 100 UNITS/ML *VIAL SQ ONE (00:49)
[2018-09-28] MEDS ORDERED: INSULIN REGULAR HUMAN 100 UNITS/ML *VIAL ONE (00:57)
--- NOTE | 2018-09-28 01:50 | PDOC ---
*Physical Exam - Vital Signs Last Vital Signs Temp Pulse Resp BP Pulse Ox 97.8 F 86 16 166/106 H 98 09/28/18 00:03 09/28/18 00:03 09/28/18 00:03 09/28/18 00:03 09/28/18 00:03 ED Treatment Course - LABORATORY CBC & Chemistry Diagram: 09/27/18 21:37 09/27/18 21:37 - ADDITIONAL ORDERS Additional order review: Laboratory Results 09/28/18 09/27/18 09/27/18 00:23 21:48 21:46 VBG pH 7.36 POC VBG pCO2 44.7 POC VBG pO2 59.7 H VBG HCO3 24.8 VBG O2 Sat (Armond) 89.7 H VBG Base Excess -0.3 Sodium Potassium Chloride Carbon Dioxide Anion Gap BUN Creatinine Creat Clearance w eGFR POC Glucometer 339 464 Random Glucose Calcium Total Bilirubin AST ALT Alkaline Phosphatase Total Protein Albumin Acetone, Qual 09/27/18 09/27/18 21:45 21:37 VBG pH POC VBG pCO2 POC VBG pO2 VBG HCO3 VBG O2 Sat (Armond) VBG Base Excess Sodium 132 L Potassium 3.3 L Chloride 105 Carbon Dioxide 21 Anion Gap 6 L BUN 18 Creatinine 0.9 Creat Clearance w eGFR > 60 POC Glucometer Random Glucose 426 H* Calcium 7.2 L Total Bilirubin 0.4 AST 19 ALT 28 Alkaline Phosphatase 51 Total Protein 4.9 L Albumin 2.8 L Acetone, Qual Negative 09/28/18 09/27/18 09/27/18 00:23 21:48 21:37 RBC 4.49 MCV 91.6 MCHC 32.9 RDW 14.4 MPV 9.4 D Neutrophils % 73.4 Lymphocytes % 18.3 Monocytes % 7.0 Eosinophils % 0.6 Basophils % 0.7 D POC Glucometer 339 464 - Medications Given in the ED: ED Medications Discontinued Medications Generic Name Dose Route Start Last Admin Trade Name Freq PRN Reason Stop Dose Admin Sodium Chloride 1,000 mls @ 1,000 mls/hr 09/27/18 22:04 09/27/18 22:16 Normal Saline - IV 09/27/18 23:03 1,000 mls/hr ASDIR STA Administration Sodium Chloride 1,000 mls @ 1,000 mls/hr 09/27/18 22:37 09/27/18 23:03 Normal Saline - IV 09/27/18 23:36 1,000 mls/hr ASDIR STA Administration Insulin Human Regular 6 units 09/28/18 00:49 09/28/18 00:59 Novolin R Vial *For Ivpush Or Iv Drip Only* SQ 09/28/18 00:50 6 units ONCE ONE Administration Losartan Potassium 50 mg 09/27/18 23:36 09/28/18 00:30 Cozaar - PO 09/27/18 23:37 50 mg ONCE ONE Administration Medical Decision Making - Medical Decision Making 09/28/18 01:49 FS < 300 after IVF and SQ insulin administration. BP improved after home BP medications. Cleared for DC home. *DC/Admit/Observation/Transfer Diagnosis at time of Disposition: Hyperglycemia due to type 2 diabetes mellitus - Discharge Dispostion Disposition: HOME Condition at time of disposition: Stable - Referrals - Patient Instructions Additional Instructions: Follow a DIABETIC DIET: no sugar or sugar-y drinks (no soda, no juice, avoid sugar in coffee and tea) no bread, rice, pasta Yes eat lots of vegetables and protein Fruit in moderation avoid alcohol. Continue your home medications. Clean your leg wound 2x daily with soap and water. apply Neosporin ointment and cover with clean, dry bandage. Return to ER for worstening symptoms pus drainage from leg wound redness expanding around leg wound or streaking up leg fever over 100.4 unable to tolerate food or drink. - Post Discharge Activity
[2018-09-28 01:52] VITALS: BP 141/99; PULSE 87
== END 2018-09-28 01:59 | disposition home or self-care (01) ==
LOC: FER 21:28
PROC: 3E013VG Introduction of Insulin into Subcutaneous Tissue, Percutaneous Approach (ICD-10-PCS; principal; 2018-09-27)
PROC: 3E0337Z Introduction of Electrolytic and Water Balance Substance into Peripheral Vein, Percutaneous Approach (ICD-10-PCS; 2018-09-27)
DX: E11.65 Type 2 diabetes mellitus with hyperglycemia (principal); I10 Essential (primary) hypertension; Z91.14 Patient's other noncompliance with medication regimen
CPT/HCPCS: 36415; 80053; 82009; 82803; 82962; 85025; 99282-25; J7030

== ENCOUNTER 2018-09-30 07:37 | Emergency (ER) | payer BC ==
[2018-09-30 07:56] VITALS: BMI 36.9
--- NOTE | 2018-09-30 08:16 | PDOC ---
History of Present Illness - General Chief Complaint: Blood Sugar Problem Stated Complaint: FALL,ELEVATED BLOOD SUGAR - History of Present Illness Initial Comments: The pt is a 48M w/ a history of HTN and T2DM who presents for evaluation of hyperglycemia at home. Pt reports being out of his home medications for 4 days now. He is awaiting a delivery of his medications. He checked his BG this AM at home and it was 585. He also reports feeling lightheaded this morning. Denies hitting his head or LOC. Denies recent fever/illness, cough, N/V/C/D, dysuria, hematuria, or blood in his stool. Reports his medications should be arriving within 2-4 days. 09/30/18 08:35 Past History - Past Medical History Allergies/Adverse Reactions: Allergies Allergy/AdvReac Type Severity Reaction Status Date / Time Penicillins Allergy Severe Hives Verified 10/01/18 02:31 Home Medications: Ambulatory Orders Allopurinol 300 mg PO DAILY 09/13/18 Atorvastatin Ca [Lipitor] 40 mg PO HS 09/13/18 Cholecalciferol (Vitamin D3) [Vitamin D3] 1,000 unit PO DAILY 09/13/18 Insulin Sliding Scale [Novolog Vial Sliding Scale -] See Protocol SQ ASDIR 09/13 Losartan Potassium 50 mg PO DAILY 09/13/18 Insulin Glargine,Hum.rec.anlog [Toujeo Solostar] 52 unit SQ AM 5 Days #1 insuln.pen 09/30/18 Anemia: No Asthma: No Cancer: No Cardiac Disorders: No CVA: No COPD: No CHF: No Dementia: No Diabetes: Yes GI Disorders: No Disorders: No HTN: Yes Hypercholesterolemia: Yes Liver Disease: No Seizures: No Thyroid Disease: No - Surgical History Abdominal Surgery: No Appendectomy: No Cardiac Surgery: No Cholecystectomy: No Lung Surgery: No Neurologic Surgery: No Orthopedic Surgery: Yes (right ankle) - Immunization History Immunization Up to Date: Yes - Suicide/Smoking/Psychosocial Hx Smoking Status: No Smoking History: Never smoked Have you smoked in the past 12 months: No Number of Cigarettes Smoked Daily: 0 If you are a former smoker, when did you quit?: teenager Hx Alcohol Use: No Drug/Substance Use Hx: No Substance Use Type: None Hx Substance Use Treatment: No Review of Systems - Review of Systems Able to Perform ROS?: Yes Comments:: GENERAL/CONSTITUTIONAL: No fever or chills. No weakness HEAD, EYES, EARS, NOSE AND THROAT: No change in vision. No sore throat CARDIOVASCULAR: No chest pain RESPIRATORY: Denies cough, hemoptysis GASTROINTESTINAL: No nausea, vomiting, diarrhea or constipation GENITOURINARY: No dysuria, frequency, or change in urination MUSCULOSKELETAL: No joint or muscle swelling or pain. No neck or back pain SKIN: No rash NEUROLOGIC: No headache, loss of consciousness, or change in strength/sensation ENDOCRINE: No increased thirst. No abnormal weight change HEMATOLOGIC/LYMPHATIC: No anemia, easy bleeding, or history of blood clots ALLERGIC/IMMUNOLOGIC: No hives or skin allergy 09/30/18 08:16 *Physical Exam - Vital Signs Last Vital Signs Temp Pulse Resp BP Pulse Ox 98.1 F 97 H 18 142/92 99 09/30/18 07:53 09/30/18 07:53 09/30/18 07:53 09/30/18 07:53 09/30/18 07:53 - Physical Exam Comments: GENERAL: Awake, alert, and oriented to person/place/time, in no acute distress HEAD: No signs of trauma, normocephalic, atraumatic EYES: PERRLA, EOMI, sclera anicteric, conjunctiva clear ENT: Hearing grossly normal, nares patent, oropharynx clear without exudates. Moist mucosa LUNGS: No distress, speaks full sentences, clear to auscultation bilaterally HEART: Regular rate and rhythm, normal S1 and S2, no murmurs appreciated, peripheral pulses normal and equal bilaterally ABDOMEN: Soft, protuberant, nontender, normoactive bowel sounds. No guarding, no rebound EXTREMITIES: Normal inspection, Normal range of motion, no edema. No clubbing or cyanosis NEUROLOGICAL: Cranial nerves II through XII grossly intact. Normal speech, normal gait, no focal sensorimotor deficits SKIN: R lower leg ant healing wound w/o surrounding erythema or underlying fluctuance 09/30/18 08:16 Moderate Sedation - Procedure Monitoring Vital Signs: Procedure Monitoring Vital Signs Temperature 98.1 F 09/30/18 07:53 Pulse Rate 97 H 09/30/18 07:53 Respiratory Rate 18 09/30/18 07:53 Blood Pressure 142/92 09/30/18 07:53 O2 Sat by Pulse Oximetry (%) 99 09/30/18 07:53 ED Treatment Course - LABORATORY CBC & Chemistry Diagram: 09/30/18 08:30 09/30/18 08:30 Medical Decision Making - Medical Decision Making The pt is a 48M w/ a history of HTN and T2DM who presents for evaluation of hyperglycemia 2/2 being out of home medications for 4 days at home. ED Course CMP, CBC, Trop I, Serum acetone ECG 2L NS 09/30/18 08:43 No leukocytosis No anemia Hyperglycemia 09/30/18 08:54 Hyperglycemia improved s/p fluids No CARISSA Trop I neg Serum acetone neg Rx for 1 week of DM meds sent to pt's pharmacy Plan for D/C w/ PCP f/u Discharge instructions and return precautions given Pt in agreement and verbalized understanding Dispo: home *DC/Admit/Observation/Transfer Diagnosis at time of Disposition: Hyperglycemia - Discharge Dispostion Disposition: HOME Condition at time of disposition: Improved Decision to Admit order: No - Prescriptions Prescriptions: Insulin Glargine,Hum.rec.anlog [Esdras Pham] 52 unit SQ AM 5 Days #1 insuln.pen - Referrals - Patient Instructions Printed Discharge Instructions: DI for Hyperglycemia -- Adult Additional Instructions: You were seen in the Emergency Department for evaluation of hyperglycemia ( elevated blood sugar). Review the handout provided at discharge. Follow up with you primary care provider within 1-5 days. A prescription was sent to your pharmacy for your insulin medications for 1 week. Please continue to take your medications as directed. Return to the Emergency Department if you develop fevers/chills, vision changes, dizziness, vomiting, chest pain, worsening symptoms, or any new/concerning symptoms. - Post Discharge Activity Forms/Work/School Notes: Back to Work
[2018-09-30] MEDS ORDERED: SODIUM CHLORIDE 0.9% 500 ML INFUS.BAG IV ONE (08:28)
[2018-09-30 08:49] LABS: BASO % 0.6 % (0-2.0); EOS % 0.3 % (0-4.5); HEMATOCRIT 40.5 % (35.4-49); HEMOGLOBIN 13.8 GM/dL (11.7-16.9); LYMPH % 19.8 % (8-40); MCH 30.9 pg (25.7-33.7); MCHC 34.1 g/dl (32.0-35.9); MEAN CELL VOLUME 90.4 fl (80-96); MEAN PLT VOLUME 8.5 fl (7.5-11.1); MONO % 8.8 % (3.8-10.2); NEUT % 70.5 % (42.8-82.8); PLATELET COUNT 204 K/MM3 (134-434); RBC 4.48 M/mm3 (4.00-5.60); RDW 14.7 % (11.9-15.9); WHITE BLOOD COUNT 10.5 K/mm3 (4.0-10.0)
[2018-09-30 09:29] LABS: ALBUMIN 3.3 g/dl (3.4-5.0); ALK PHOS 64 U/L (45-117); ANION GAP 8 MMOL/L (8-16); BILIRUBIN,TOTAL 0.4 mg/dL (0.2-1); BLOOD UREA NITROGEN 18 mg/dL (7-18); CHLORIDE 99 mmol/L (98-107); CO2 23 mmol/L (21-32); CREATININE 1.1 mg/dL (0.55-1.3); POTASSIUM 3.6 mmol/L (3.5-5.1); SGOT/AST 14 U/L (15-37); SGPT/ALT 52 U/L (13-61); SODIUM 129 mmol/L (136-145); TOT PROT 6.5 g/dl (6.4-8.2)
[2018-09-30 09:30] LABS: GLUCOSE,RANDOM 365 mg/dL (74-106)
[2018-09-30 10:09] VITALS: BP 140/94; PULSE 78; TEMP 97.7
--- NOTE | 2018-09-30 10:11 | PDOC ---
Attending Attestation - Resident Resident Name: Adan Lowry - ED Attending Attestation I have performed the following: I have examined & evaluated the patient, The case was reviewed & discussed with the resident, I agree w/resident's findings & plan, Exceptions are as noted - HPI HPI: 09/30/18 09:58 48 M with h/o HTN and DM, presenting to ED with elevated blood sugars. Pt states that he ran out of insulin 4 days ago. Is scheduled for a shipment of his meds in the next 48 hours. Pt endorses polyuria and polydipsia. Denies SOB. Pt had an episode of lightheadedness this morning while walking his dog but denies LOC. Pt denies any CP/palpitations. Denies F/C. Denies N/V/D. Denies abdominal pain. - Physicial Exam PE: 09/30/18 10:00 "GENERAL: Awake, alert, and fully oriented, in no acute distress. HEAD: No signs of trauma EYES: PERRLA, EOMI, sclera anicteric, conjunctiva clear ENT: Auricles normal inspection, hearing grossly normal, nares patent, oropharynx clear without exudates. Moist mucosa NECK: Nontender, no stepoffs, Normal ROM, supple, no lymphadenopathy, JVD, or masses LUNGS: Breath sounds equal, clear to auscultation bilaterally. No wheezes, and no crackles HEART: Regular rate and rhythm, normal S1 and S2, no murmurs, rubs or gallops ABDOMEN: Soft, nontender, normoactive bowel sounds. No guarding, no rebound. No masses EXTREMITIES: Normal range of motion, no edema. No clubbing or cyanosis. No cords, erythema, or tenderness NEUROLOGICAL: Cranial nerves II through XII intact. 5/5 strength and sensation in all extremities, Normal speech, normal gait, normal cerebellar function SKIN: Warm, Dry, normal turgor, no rashes or lesions noted. - Medical Decision Making 09/30/18 10:00 48 M with elevated sugars, likely 2/2 med noncompliance. Pt also with transient lightheadedness this AM. Suspect this is 2/2 volume depletion in the setting of elevated sugars. Pt with no EKG changes, no signs of ischemia or arrhythmia. - Labs, trop - IVF - Insulin refill sent to pharmacy 09/30/18 10:01 Repeat fingerstick now in 200s Pt reassessed after fluids. Now feels much better. Pt is well appearing, with normal vitals. Clinically stable for DC at this time. I discussed the physical exam findings, ancillary test results and final diagnoses with the patient. I answered all of the patient's questions. The patient was satisfied with the care received and felt comfortable with the discharge plan and treatment plan. The patient agrees to follow up with the primary care physician within 24-72 hours.
[2018-09-30] MEDS ORDERED: ACETAMINOPHEN 325 MG TABLET (FP) ONE (10:12)
[2018-09-30 11:15] LABS: ACETONE SERUM NEGATIVE (NEGATIVE)
--- NOTE | 2018-10-01 18:10 | EKG ---
Test Reason : Blood Pressure : / mmHG Vent. Rate : 079 BPM Atrial Rate : 079 BPM P-R Int : 162 ms QRS Dur : 102 ms QT Int : 366 ms P-R-T Axes : 049 -07 024 degrees QTc Int : 419 ms NORMAL SINUS RHYTHM MODERATE VOLTAGE CRITERIA FOR LVH, MAY BE NORMAL VARIANT NONSPECIFIC ST ABNORMALITY ABNORMAL ECG WHEN COMPARED WITH ECG OF 27-JUN-2018 12:42, NO SIGNIFICANT CHANGE WAS FOUND Confirmed by MD SHEILA, JOSE ([id number]) on 10/01/2018 6:09:32 PM Referred By: Confirmed By:JOSE SOSA MD
== END 2018-09-30 10:14 | disposition home or self-care (01) ==
LOC: JER 07:37
PROC: 3E0337Z Introduction of Electrolytic and Water Balance Substance into Peripheral Vein, Percutaneous Approach (ICD-10-PCS; principal; 2018-09-30)
DX: E11.65 Type 2 diabetes mellitus with hyperglycemia (principal); Z87.891 Personal history of nicotine dependence; I10 Essential (primary) hypertension
CPT/HCPCS: 36415; 80053; 82009; 82962; 84484; 85025; 93005; 93010; 99282-25

== ENCOUNTER 2018-10-01 01:06 | Inpatient (IN) | payer BC ==
[2018-10-01 01:29] LABS: BASO % 0.9 % (0-2.0); EOS % 0.1 % (0-4.5); HEMATOCRIT 40.6 % (35.4-49); HEMOGLOBIN 13.8 GM/dL (11.7-16.9); LYMPH % 10.3 % (8-40); MCH 31.4 pg (25.7-33.7); MEAN CELL VOLUME 92.4 fl (80-96); MEAN PLT VOLUME 8.9 fl (7.5-11.1); MONO % 6.5 % (3.8-10.2); NEUT % 82.2 % (42.8-82.8); PLATELET COUNT 202 K/MM3 (134-434); RBC 4.39 M/mm3 (4.00-5.60); WHITE BLOOD COUNT 12.9 K/mm3 (4.0-10.0)
--- NOTE | 2018-10-01 01:43 | PDOC ---
History of Present Illness - General Stated Complaint: HIGH SUGAR Time Seen by Provider: 10/01/18 01:25 History Source: Patient Exam Limitations: No Limitations - History of Present Illness Initial Comments: 10/01/18 01:39 Best Contact: PCP: Dr. Valencia Pmhx: Pshx: Allergies: FH: Social Hx: Cigarettes/ Alcohol/ Drugs/ LMP: 48-year-old male presents to the emergency department complaining of hyperglycemia. Patient states his diabetes is not well controlled. Patient reports approximately 2-1/2 weeks ago, he kicked a piece of metal causing a laceration to the left lower anterior leg. Patient was seen at [facility] and had sutures. Patient denies being on any antibiotics but did return approximately 7-8 days ago after sutures removed. For the past week, patient states his usual glucose of 1:30 to 200 has increased to 480-500 daily area over the past 3 days, patient has been seen at 3 different facilities for hyperglycemia. Patient was seen 3 days ago at [facility] then 2 days ago at [facility] while visiting a friend in [place]. Patient was again seen earlier yesterday at [facility]. All 3 incidents, patient was seen and discharged the same day. Patient states while home today, his fingerstick states high. Pt endorses polyuria and polydipsia. Patient denies nausea/vomiting, fever/chills, dizziness, lightheadedness, headache, blurry vision, facial pains, neck pain/stiffness, chest pain, shortness of breath, abdominal pains, flank pains, urinary symptoms, extremity numbness or tingling sensation. Patient states he picked up his insulin yesterday after being discharged from the hospital. Past History - Past Medical History Allergies/Adverse Reactions: Allergies Allergy/AdvReac Type Severity Reaction Status Date / Time Penicillins Allergy Severe Hives Verified 10/01/18 02:31 Home Medications: Ambulatory Orders Allopurinol 300 mg PO DAILY 09/13/18 Atorvastatin Ca [Lipitor] 40 mg PO HS 09/13/18 Cholecalciferol (Vitamin D3) [Vitamin D3] 1,000 unit PO DAILY 09/13/18 Colchicine 0.6 mg PO DAILY 09/13/18 Insulin Glargine,Hum.rec.anlog [Toujeo Solostar] 52 unit SQ AM 09/13/18 Insulin Sliding Scale [Novolog Vial Sliding Scale -] See Protocol SQ ASDIR 09/13 Losartan Potassium 50 mg PO DAILY 09/13/18 Naproxen [Naprosyn -] 375 mg PO DAILY 09/13/18 Insulin (Novolog) [Novolog] 1 units SQ AC #1 vial 09/30/18 Insulin Glargine,Hum.rec.anlog [Toujeo Solostar] 52 unit SQ AM 5 Days #1 insuln.pen 09/30/18 Anemia: No Asthma: No Cancer: No Cardiac Disorders: No CVA: No COPD: No CHF: No Dementia: No Diabetes: Yes GI Disorders: No Disorders: No HTN: Yes Hypercholesterolemia: Yes Liver Disease: No Seizures: No Thyroid Disease: No - Surgical History Abdominal Surgery: No Appendectomy: No Cardiac Surgery: No Cholecystectomy: No Lung Surgery: No Neurologic Surgery: No Orthopedic Surgery: Yes (right ankle) - Immunization History Immunization Up to Date: Yes - Suicide/Smoking/Psychosocial Hx Smoking Status: No Smoking History: Never smoked Have you smoked in the past 12 months: No Number of Cigarettes Smoked Daily: 0 If you are a former smoker, when did you quit?: teenager Hx Alcohol Use: No Drug/Substance Use Hx: No Substance Use Type: None Hx Substance Use Treatment: No Review of Systems - Review of Systems Able to Perform ROS?: Yes Comments:: 10/01/18 01:43 CONSTITUTIONAL: Absent: fever, chills, diaphoresis, generalized weakness, malaise, loss of appetite HEENT: Absent: rhinorrhea, nasal congestion, throat pain, throat swelling, difficulty swallowing, mouth swelling, ear pain, eye pain, visual Changes CARDIOVASCULAR: Absent: chest pain, loss of consciousness, palpitations, irregular heart rate, peripheral edema RESPIRATORY: Absent: cough, shortness of breath, dyspnea with exertion, orthopnea, wheezing, stridor, hemoptysis GASTROINTESTINAL: Absent: abdominal pain, abdominal distension, nausea, vomiting, diarrhea, constipation, melena, hematochezia GENITOURINARY: Absent: dysuria, frequency, urgency, hesitancy, hematuria, flank pain, genital pain MUSCULOSKELETAL: Absent: myalgia, arthralgia, joint swelling SKIN: Absent: rash, itching, pallor HEMATOLOGIC/IMMUNOLOGIC: Absent: easy bleeding, easy bruising, lymphadenopathy, frequent infections ENDOCRINE: Absent: unexplained weight gain, unexplained weight loss, heat intolerance, cold intolerance NEUROLOGIC: Absent: headache, focal weakness or paresthesias, dizziness, unsteady gait, seizure, mental status changes, bladder or bowel incontinence PSYCHIATRIC: Absent: anxiety, depression, suicidal or homicidal ideation, hallucinations. Is the patient limited Belgian proficient: No *Physical Exam - Physical Exam Comments: 10/01/18 01:43 GENERAL: Well developed, well nourished. Awake and alert. No acute distress. HEENT: Normocephalic, atraumatic. PERRLA, EOMI. No conjunctival pallor. Sclera are non- icteric. Moist mucous membranes. Oropharynx is clear. NECK: Supple. Full ROM. No JVD. Carotid pulses 2+ and symmetric, without bruits. No thyromegaly. No lymphadenopathy. CARDIOVASCULAR: Regular rate and rhythm. No murmurs, rubs, or gallops. Distal pulses are 2+ and symmetric. PULMONARY: No evidence of respiratory distress. Lungs clear to auscultation bilaterally. No wheezing, rales or rhonchi. ABDOMINAL: Soft. Non-tender. Non-distended. No rebound or guarding. No organomegaly. Normoactive bowel sounds. MUSCULOSKELETAL Normal range of motion at all joints. No bony deformities or tenderness. No CVA tenderness. EXTREMITIES: Left ant lower leg healing incision with surrounding erythematous with slight tenderness/ Neg lymphangitis No cyanosis. No clubbing. No edema. No calf tenderness. SKIN: Warm and dry. Normal capillary refill. No rashes. No jaundice. NEUROLOGICAL: Alert, awake, appropriate. Cranial nerves 2-12 intact. No deficits to light touch and temperature in face, upper extremities and lower extremities. No motor deficits in the in face, upper extremities and lower extremities. Normoreflexic in the upper and lower extremities. Normal speech. Toes are down- going bilaterally. Gait is normal without ataxia. ED Treatment Course - LABORATORY CBC & Chemistry Diagram: 10/01/18 01:08 10/01/18 01:08 - ADDITIONAL ORDERS Additional order review: 10/01/18 01:08 RBC 4.39 MCV 92.4 MCHC 34.0 RDW 15.0 MPV 8.9 Neutrophils % 82.2 Lymphocytes % 10.3 D Monocytes % 6.5 Eosinophils % 0.1 Basophils % 0.9 *DC/Admit/Observation/Transfer Diagnosis at time of Disposition: Skin infection Uncontrolled diabetes mellitus Qualifiers: Diabetes mellitus type: type 1 Glycemic state: with hyperglycemia Qualified Code(s): E10.65 - Type 1 diabetes mellitus with hyperglycemia - Discharge Dispostion Condition at time of disposition: Guarded Decision to Admit order: Yes - Referrals Referrals: ON STAFF,NOT [Primary Care Provider] - - Patient Instructions - Post Discharge Activity Progress Note - Progress Note Progress Note: 0237hrs: Spoke to Dr. Jefferson/hospitalist/will admit
[2018-10-01] MEDS ORDERED: SODIUM CHLORIDE 1,000 ML IV STA (01:46)
[2018-10-01 01:47] LABS: URINE APPEARANCE CLEAR; URINE BILIRUBIN NEGATIVE (<2.0 mg/dL); URINE COLOR STRAW; URINE GLUCOSE (UA) 3+ (NEGATIVE); URINE KETONE NEGATIVE (NEGATIVE); URINE LEUK ESTERASE NEGATIVE (NEGATIVE); URINE NITRITE NEGATIVE (NEGATIVE); URINE PROTEIN NEGATIVE (NEGATIVE); URINE UROBILINOGEN NEGATIVE mg/dL (0.2-1.0)
[2018-10-01 02:04] LABS: ACETONE SERUM POSITIVE SMALL 1+ (NEGATIVE)
[2018-10-01 02:11] LABS: ALBUMIN 3.2 g/dl (3.4-5.0); ALK PHOS 71 U/L (45-117); ANION GAP 7 MMOL/L (8-16); BILIRUBIN,TOTAL 0.4 mg/dL (0.2-1); BLOOD UREA NITROGEN 23 mg/dL (7-18); CALCIUM 8.6 mg/dL (8.5-10.1); CHLORIDE 95 mmol/L (98-107); CO2 26 mmol/L (21-32); CREATININE 1.3 mg/dL (0.55-1.3); POTASSIUM 4.3 mmol/L (3.5-5.1); SGOT/AST 18 U/L (15-37); SGPT/ALT 53 U/L (13-61); SODIUM 129 mmol/L (136-145); TOT PROT 6.5 g/dl (6.4-8.2)
[2018-10-01 02:12] LABS: GLUCOSE,RANDOM 593 mg/dL (74-106)
[2018-10-01] MEDS ORDERED: INSULIN REGULAR HUMAN 100 UNITS/ML *VIAL SQ ONE (02:26)
[2018-10-01] MEDS ORDERED: CLINDAMYCIN 900 MG PREMIX IVPB 900 MG/50 ML BAG IVPB ONE ×2 (02:33→03:03)
[2018-10-01] MEDS ORDERED: INSULIN REGULAR HUMAN 100 UNITS/ML *VIAL ONE (03:06)
--- NOTE | 2018-10-01 03:17 | PN ---
Teaching Attending Note Name of Resident: Fortino Post ATTENDING PHYSICIAN STATEMENT I saw and evaluated the patient. I reviewed the resident's note and discussed the case with the resident. I agree with the resident's findings and plan as documented. SUBJECTIVE: Patient is a 48 year old man with history of NIDDM, HTN, HLD, penicillin allergy and gout presents to the ER for recurrent hyperglycemia. Patient states his diabetes is not well controlled. Patient reports approximately 2-1/2 weeks ago, he kicked a piece of metal causing a laceration to the left lower anterior leg. Patient was seen at [facility] and had sutures. Patient denies being on any antibiotics but did return approximately 7-8 days ago after sutures removed. For the past week, patient states his usual glucose of 130 to 200 has increased to 480-500 daily area over the past 3 days, patient has been seen at 3 different facilities for hyperglycemia. Patient was seen 3 days ago at [facility] then 2 days ago at [facility] while visiting a friend in [place]. Patient was again seen earlier yesterday at [facility]. All 3 incidents, patient was seen and discharged the same day. Patient states while home today, his fingerstick states high. He has had polyuria and polydipsia. Patient denies nausea/vomiting, fever/chills, dizziness , lightheadedness, headache, blurry vision, facial pains, neck pain/stiffness, chest pain, shortness of breath, abdominal pains, flank pains, urinary symptoms , extremity numbness or tingling sensation. Patient states he picked up his insulin yesterday after being discharged from the hospital. 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 OBJECTIVE: Alert and obese Vital Signs Period Temp Pulse Resp BP Sys/Arguello Pulse Ox Last 24 Hr 98.4 F 86 20 148/92 98 HEENT: No Jaundice, eye redness or discharge, PERRLA, EOMI. Normocephalic, atraumatic. External ears are normal and hearing is grossly intact. No nasal discharge. Neck: Supple, nontender. No palpable adenopathy or thyromegaly. No JVD Chest: Good effort. Clear to auscultation and percussion. Heart: Regular. No S3, rub or murmur Abdomen: Not distended, soft, nontender and no HSM. No rebound or guarding. Normal bowel sounds. Ext: Peripheral pulses intact. No leg edema. A healed left anterior leg wound with surrounding erythema and mild proximal tenderness. Skin: Warm and dry. No petechiae, rash or ecchymosis. Neuro: Alert. Oriented x3. CN 2-12 grossly intact. Sensation grossly intact in all four extremities and DTR are symmetric. Psych: Appropriate mood and affect. Good insight. Home Medications Medication Instructions Recorded Allopurinol 300 mg PO DAILY 09/13/18 Atorvastatin Ca [Lipitor] 40 mg PO HS 09/13/18 Cholecalciferol (Vitamin D3) 1,000 unit PO DAILY 09/13/18 [Vitamin D3] Colchicine 0.6 mg PO DAILY 09/13/18 Insulin Glargine,Hum.rec.anlog 52 unit SQ AM 09/13/18 [Toujeo Solostar] Insulin Sliding Scale [Novolog See Protocol SQ ASDIR 09/13/18 Vial Sliding Scale -] Losartan Potassium 50 mg PO DAILY 09/13/18 Naproxen [Naprosyn -] 375 mg PO DAILY 09/13/18 Insulin (Novolog) [Novolog] 1 units SQ AC #1 vial 09/30/18 Insulin Glargine,Hum.rec.anlog 52 unit SQ AM 5 Days #1 insuln.pen 09/30/18 [Toujeo Solostar] Abnormal Lab Results 10/01/18 10/01/18 10/01/18 01:08 01:08 01:08 WBC 12.9 H Absolute Neuts (auto) 10.6 H Sodium 129 L Chloride 95 L Anion Gap 7 L BUN 23 H Random Glucose 593 H* Albumin 3.2 L Urine Glucose (UA) 3+ H ASSESSMENT AND PLAN: 1. Infected left leg wound/cellulitis and uncontrolled DM - Will treat him with IV NS and stat dose of IV insulin. Hold the home diabetes drugs and implement sliding scale insulin regimen. Not in DKA. Monitor BMP and give KCL PRN. Consult endocrine to craft an appropriate outpatient diabetes treatment regimen. Importance of life style changes and weight loss stressed. Will provide comprehensive diabetes care with patient teaching and counseling about the importance of adherence to prescribed diabetes regimen, euglycemia, eye care and foot care. Patient is allergic to penicillin. Will treat him with IV Vancomycin, get nasal MRSA swab and consult ID. EKG is NSR with no significant ST-T wave changes. 2. Hypoalbuminemia - Possibly due to combined effects of malnutrition and inflammation associated with comorbid chronic conditions. Will ensure adequate dietary protein intake and also consult patient services rep. 3. Obesity Counseled on the risks associated with obesity. Will provide patient all the necessary assistance, counseling and positive reinforcement to facilitate weight loss. Consult patient services rep. 4. Hypertension - Restart outpatient antihypertensive drugs and revise regimen to ensure smooth [id number] good BP control. Nonpharmacologic measures to control hypertension like weight loss, salt restriction and exercise discussed. 5. DVT prophylaxis - Lovenox 40 mg SQ q 24 hours. 6. Advance directives - Full code
--- NOTE | 2018-10-01 04:35 | HP ---
CHIEF COMPLAINT: Elevated blood sugars HISTORY OF PRESENT ILLNESS: Pt is a 48 y/o gentleman with a significant past medical history of HTN, hyperlipidemia, gout, and rheumatoid arthritis. Pt presented early this am due to uncontrolled blood glucose levels. Per patient, his BM's have been in the 400 -500 range for the past few days. Pt endorses that approximately 2 weeks ago, he was doing yard work and kicked a piece of metal with his foot, injuring the bottom of his ankle. Pt sought medical treatment at [facility] where he received sutures. Pt endorses that it was around this time his BGMs began to rise significantly. Pt endorses he take Toujeo 52 U as well as Novolog Sliding Scale every morning. Pt endorses that a few days ago while he was vising a friend in [place], he began to experience dry mouth and blurry vision, prompting him to exit off the highway and park his car. Denies chest pain, shortness of breath, nausea/vomiting. Social Hx; Denies Alcohol or tobacco use. 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 FH- Father HTN, DM ER course was notable for: (1) Random glucose 593 (2) WBC 12.9 (3) Allergies Penicillins Allergy (Severe, Verified 10/01/18 02:31) Hives HOME MEDICATIONS: Home Medications Medication Instructions Recorded Allopurinol 300 mg PO DAILY 09/13/18 Atorvastatin Ca [Lipitor] 40 mg PO HS 09/13/18 Cholecalciferol (Vitamin D3) 1,000 unit PO DAILY 09/13/18 [Vitamin D3] Colchicine 0.6 mg PO DAILY 09/13/18 Insulin Glargine,Hum.rec.anlog 52 unit SQ AM 09/13/18 [Toujeo Solostar] Insulin Sliding Scale [Novolog See Protocol SQ ASDIR 09/13/18 Vial Sliding Scale -] Losartan Potassium 50 mg PO DAILY 09/13/18 Naproxen [Naprosyn -] 375 mg PO DAILY 09/13/18 Insulin (Novolog) [Novolog] 1 units SQ AC #1 vial 09/30/18 Insulin Glargine,Hum.rec.anlog 52 unit SQ AM 5 Days #1 insuln.pen 09/30/18 [Toujeo Solostar] REVIEW OF SYSTEMS CONSTITUTIONAL: Absent: fever, chills, diaphoresis, generalized weakness, malaise, loss of appetite, weight change HEENT: PRESENT: visual changes CARDIOVASCULAR: Absent: chest pain, syncope, palpitations, irregular heart rate, lightheadedness , peripheral edema RESPIRATORY: Absent: cough, shortness of breath, dyspnea with exertion, orthopnea, wheezing, stridor, hemoptysis GASTROINTESTINAL: Absent: abdominal pain, abdominal distension, nausea, vomiting, diarrhea, constipation, melena, hematochezia GENITOURINARY: PRESENT: frequency MUSCULOSKELETAL: Absent: myalgia, arthralgia, joint swelling, back pain, neck pain SKIN: Absent: rash, itching, pallor HEMATOLOGIC/IMMUNOLOGIC: Absent: easy bleeding, easy bruising, lymphadenopathy, frequent infections ENDOCRINE: ABSENT: unexplained weight gain, unexplained weight loss, heat intolerance, cold intolerance NEUROLOGIC: Absent: headache, focal weakness or paresthesias, dizziness, unsteady gait, seizure, mental status changes, bladder or bowel incontinence PSYCHIATRIC: Absent: anxiety, depression, suicidal or homicidal ideation, hallucinations. PHYSICAL EXAMINATION Vital Signs - 24 hr 10/01/18 01:06 Temperature 98.4 F Pulse Rate 86 Respiratory 20 Rate Blood Pressure 148/92 O2 Sat by Pulse 98 Oximetry (%) GENERAL: AAOx3 NAD HEAD: Normal with no signs of trauma. EYES: Fundoscopy WNL EARS, NOSE, THROAT: MMM NECK: Supple LUNGS: CTAB HEART: RRR nl s1s2 ABDOMEN: Obese, Nontender nondistended MUSCULOSKELETAL: FROM throughout LOWER EXTREMITIES: healed wound left lower eller. Gouty crystals middle toe right foot. NEUROLOGICAL: Cranial nerves II-XII intact. Normal speech. Normal gait. PSYCHIATRIC: Cooperative. Good eye contact. Appropriate mood and affect. Laboratory Results - last 24 hr 10/01/18 10/01/18 10/01/18 01:08 01:08 01:08 WBC 12.9 H RBC 4.39 Hgb 13.8 Hct 40.6 MCV 92.4 MCH 31.4 MCHC 34.0 RDW 15.0 Plt Count 202 MPV 8.9 Absolute Neuts (auto) 10.6 H Neutrophils % 82.2 Lymphocytes % 10.3 D Monocytes % 6.5 Eosinophils % 0.1 Basophils % 0.9 Nucleated RBC % 0 Sodium 129 L Potassium 4.3 Chloride 95 L Carbon Dioxide 26 Anion Gap 7 L BUN 23 H Creatinine 1.3 Creat Clearance w eGFR 58.67 Random Glucose 593 H* Calcium 8.6 Total Bilirubin 0.4 AST 18 ALT 53 Alkaline Phosphatase 71 Total Protein 6.5 Albumin 3.2 L Urine Color Straw Urine Appearance Clear Urine pH 5.0 Ur Specific [place] 1.025 Urine Protein Negative Urine Glucose (UA) 3+ H Urine Ketones Negative Urine Blood Negative Urine Nitrite Negative Urine Bilirubin Negative Urine Urobilinogen Negative Ur Leukocyte Esterase Negative Acetone, Qual Positive small 1+ ASSESSMENT/PLAN: Pt is a 48 y/o gentleman with a significant past medical history of HTN, hyperlipidemia, gout, and rheumatoid arthritis. Pt presented early this am due to uncontrolled blood glucose levels. #IDDM -BGM's 400s-500's -Pt on Toujeo 52 U and Novolog Sldiing scale both in AM -Will place patient on ISS -Will add Levemir if ISS contingent upon BGMs -Diabetic Diet -Endocrinology Consult -Outpatient Podiatry/Endocrinology follow up -I.V Vancomycin for wound on leg -ID Consult #HTN Resume Losartan #HLD Resume Atorvastatin #Gout Colchicine 0.6 mg. Pt states he is not currently taking. #FEN No Fluids Monitor Electrolytes Diabetic Diet #DVT Lovenox 40 SQ #Dispo: med-surg Visit type - Emergency Visit Emergency Visit: Yes ED Registration Date: 10/01/18 Care time: The patient presented to the Emergency Department on the above date and was hospitalized for further evaluation of their emergent condition. - New Patient This patient is new to me today: Yes Date on this admission: 10/01/18 - Critical Care Critical Care patient: No
[2018-10-01 07:21] LABS: HEMATOCRIT 37.6 % (35.4-49); MCH 31.3 pg (25.7-33.7); MCHC 34.4 g/dl (32.0-35.9); MEAN PLT VOLUME 8.4 fl (7.5-11.1); PLATELET COUNT 185 K/MM3 (134-434); RBC 4.13 M/mm3 (4.00-5.60)
[2018-10-01] MEDS: INSULIN SLIDING SCALE (NOVOLOG) 1 VIAL SQ SCH ×5 (07:24→23:03)
[2018-10-01] MEDS ORDERED: INSULIN (NOVOLOG) ASPART 100 UNITS/ML 10ML VIAL ONE ×3 (07:30→18:00)
[2018-10-01 07:31] LABS: INR 0.86 (0.83-1.09); PROTHROMBIN TIME (PATIENT) 10.1 SEC (9.7-13.0)
[2018-10-01 07:33] LABS: ACTIVATED PTT 26.3 SECONDS (25.2-36.5)
[2018-10-01 07:46] LABS: ALBUMIN 2.9 g/dl (3.4-5.0); ALK PHOS 57 U/L (45-117); ANION GAP 6 MMOL/L (8-16); BILIRUBIN,TOTAL 0.4 mg/dL (0.2-1); BLOOD UREA NITROGEN 19 mg/dL (7-18); CALCIUM 8.3 mg/dL (8.5-10.1); CHLORIDE 104 mmol/L (98-107); CO2 27 mmol/L (21-32); CREATININE 0.9 mg/dL (0.55-1.3); GLUCOSE,RANDOM 251 mg/dL (74-106); MAGNESIUM 2.1 mg/dL (1.8-2.4); PHOSPHOROUS 3.4 mg/dL (2.5-4.9); POTASSIUM 3.8 mmol/L (3.5-5.1); SGOT/AST 13 U/L (15-37); SGPT/ALT 45 U/L (13-61); SODIUM 136 mmol/L (136-145); TOT PROT 5.9 g/dl (6.4-8.2)
[2018-10-01 08:46] VITALS: BMI 38.2
[2018-10-01] MEDS: LOSARTAN POTASSIUM 50 MG TABLET (FP) PO SCH (09:04)
[2018-10-01] MEDS: ENOXAPARIN NA (PORCINE) 40 MG/0.4 ML DISP.SYRIN SQ SCH (09:04)
[2018-10-01] MEDS ORDERED: VANCOMYCIN 1 GRAM (PRE-DOCKED) 1,000 MG/250 ML BAG IVPB ONE (10:00)
--- NOTE | 2018-10-01 12:35 | CON.ID ---
Consult - History of Present Illness History of Present Illness: 48 y.o. male with PMH of DM, obesity, gout, and RA presents with c/o hyperglycemia (reports blood sugars 400-500 at home). Pt sustained a LLE leg laceration about 2 1/2 wks ago which was sutured at the time. He states that his glucose has been elevated at home for the past week and he has visited the ER 3x since and discharged home. Also c/o blurred vision when his BS are high as well as polyuria and polydypsia. In the ER he was noted to have a mild wbc elevation (12.9) and glucose of 593. LLE wound site with mild surrounding erythema but no drainage, pt denies pain at site. Pt with PCN allergy (as a child informed by mother and does not know severity). He has no other specific complaints. - History Source History Provided By: Patient Limitations to Obtaining History: No Limitations - Past Medical History Rheumatology: Yes: Gout, Rheumatoid Arthritis Endocrine: Yes: Diabetes Mellitus - Alcohol/Substance Use Hx Alcohol Use: No - Smoking History Smoking history: Never smoked Have you smoked in the past 12 months: No Aproximately how many cigarettes per day: 0 If you are a former smoker, when did you quit?: teenager - Social History Usual Living Arrangement: With Spouse Home Medications - Allergies Allergies/Adverse Reactions: Allergies Allergy/AdvReac Type Severity Reaction Status Date / Time Penicillins Allergy Severe Hives Verified 10/01/18 02:31 - Home Medications Home Medications: Ambulatory Orders Allopurinol 300 mg PO DAILY 09/13/18 Atorvastatin Ca [Lipitor] 40 mg PO HS 09/13/18 Cholecalciferol (Vitamin D3) [Vitamin D3] 1,000 unit PO DAILY 09/13/18 Colchicine 0.6 mg PO DAILY 09/13/18 Insulin Glargine,Hum.rec.anlog [Toujeo Solostar] 52 unit SQ AM 09/13/18 Insulin Sliding Scale [Novolog Vial Sliding Scale -] See Protocol SQ ASDIR 09/13 Losartan Potassium 50 mg PO DAILY 09/13/18 Naproxen [Naprosyn -] 375 mg PO DAILY 09/13/18 Insulin (Novolog) [Novolog] 1 units SQ AC #1 vial 09/30/18 Insulin Glargine,Hum.rec.anlog [Toujeo Solostar] 52 unit SQ AM 5 Days #1 insuln.pen 09/30/18 Family Disease History - Family Disease History Family Disease History: Diabetes: Father (CAD; "small CA" in his 50s), Mother ( CABG in her 50s) Review of Systems - Review of Systems Constitutional: reports: No Symptoms. denies: Chills, Diaphoresis, Fever, Lethargy, Loss of Appetite, Malaise, Night Sweats, Unintentional Wgt. Loss, Weakness, Other Eyes: reports: No Symptoms. denies: Blind Spots, Blurred Vision, Double Vision , Eye Pain, Floaters, Photophobia, Recent Change in Vision, Other HENT: reports: No Symptoms. denies: Difficult Swallowing, Ear Discharge, Ear Pain, Epistaxis, Gingival Bleeding, Hearing Loss, Mouth Swelling, Nasal Congestion, Ocular Prosthesis, Throat Pain, Toothache, Ringing in Ears, Other Neck: reports: No Symptoms. denies: Decreased ROM, Lumps, Pain on Movement, Stiffness, Swollen Glands, Tenderness, Other Cardiovascular: reports: No Symptoms. denies: Chest Pain, Edema, Palpitations, Shortness of Breath, Other Respiratory: reports: No Symptoms. denies: Cough, Exercise Intolerance, Hemoptysis, Orthopnea, PND, Snoring, SOB, SOB on Exertion, Wheezing, Other Gastrointestinal: reports: No Symptoms. denies: Abdominal Pain, Bloating, Constipation, Diarrhea, Dysphagia, Indigestion, Melena, Nausea, Rectal Bleeding , Vomiting, Vomiting Blood, Other Genitourinary: reports: No Symptoms. denies: Burning, Discharge, Dysuria, Flank Pain, Frequency, Hematuria, Incontinence, Lesions, Menses, Pain, Testicular Mass, Testicular Pain, Testicular Swelling, Urgency, Vaginal Bleeding , Other Breasts: reports: No Symptoms Reported. denies: See HPI, Breast Implants, Discharge from Nipple, Lumps, Pain, Skin Changes, Other Musculoskeletal: reports: No Symptoms. denies: Back Pain, Crepitus, Decreased ROM, Extremity Pain, Joint Pain, Joint Swelling, Muscle Pain, Muscle Cramps, Muscle Weakness, Other Integumentary: reports: No Symptoms. denies: Blister, Bruising, Change in Color , Eczema, Erythema, Incision, Lesions, Lump, Pallor, Pruritis, Rash, Wound, Other Neurological: reports: No Symptoms. denies: Change in LOC, Change in Speech, Confusion, Dizziness, Headache, Incoordination, Numbness, Parasthesia, Pre- Existing Deficit, Seizure, Syncope, Tremors, Unsteady Gait, Weakness, Other Endocrine: reports: No Symptoms. denies: Excessive Sweating, Flushing, Increased Hunger, Increased Thirst, Intolerance to Cold, Intolerance to Heat, Unexplained Weight Gain, Unexplained Weight Loss, Other Hematology/Lymphatic: reports: No Symptoms. denies: Easily Bruised, Excessive Bleeding, Swollen Glands, Other Psychiatric: reports: No Symptoms. denies: Altered Sleep Pattern, Anxiety, Depression, Hallucinations, Panic, Paranoia, Suicidal, Other Physical Exam Vital Signs: Vital Signs Temperature 97.6 F 10/01/18 06:50 Pulse Rate 70 10/01/18 06:50 Respiratory Rate 16 10/01/18 06:50 Blood Pressure 144/92 10/01/18 06:50 O2 Sat by Pulse Oximetry (%) 96 10/01/18 08:27 Constitutional: Yes: No Distress, Calm Eyes: Yes: Conjunctiva Clear, EOM Intact HENT: Yes: Atraumatic Neck: Yes: Supple Cardiovascular: Yes: Regular Rate and Rhythm Respiratory: Yes: CTA Bilaterally Gastrointestinal: Yes: Normal Bowel Sounds, Soft, Abdomen, Obese Renal/: Yes: WNL Musculoskeletal: Yes: WNL Extremities: Yes: Erythema Wound/Incision: Yes: Other (LLE anterior 2-3 cm scabbed wound with mild surrounding erythema, no drainage/fluctuance) Labs: CBC, BMP 10/01/18 06:35 10/01/18 06:35 Laboratory Tests 10/01/18 10/01/18 10/01/18 01:08 01:08 01:08 WBC 12.9 H RBC 4.39 Hgb 13.8 Hct 40.6 MCV 92.4 MCH 31.4 MCHC 34.0 RDW 15.0 Plt Count 202 MPV 8.9 Absolute Neuts (auto) 10.6 H Neutrophils % 82.2 Lymphocytes % 10.3 D Monocytes % 6.5 Eosinophils % 0.1 Basophils % 0.9 Nucleated RBC % 0 PT with INR INR PTT (Actin FS) Sodium 129 L Potassium 4.3 Chloride 95 L Carbon Dioxide 26 Anion Gap 7 L BUN 23 H Creatinine 1.3 Creat Clearance w eGFR 58.67 POC Glucometer Random Glucose 593 H* Hemoglobin A1c % Calcium 8.6 Phosphorus Magnesium Total Bilirubin 0.4 AST 18 ALT 53 Alkaline Phosphatase 71 Total Protein 6.5 Albumin 3.2 L Urine Color Straw Urine Appearance Clear Urine pH 5.0 Ur Specific [place] 1.025 Urine Protein Negative Urine Glucose (UA) 3+ H Urine Ketones Negative Urine Blood Negative Urine Nitrite Negative Urine Bilirubin Negative Urine Urobilinogen Negative Ur Leukocyte Esterase Negative Acetone, Qual Positive small 1+ 10/01/18 10/01/18 10/01/18 06:35 06:35 06:35 WBC 10.0 RBC 4.13 Hgb 13.0 Hct 37.6 MCV 91.0 MCH 31.3 MCHC 34.4 RDW 15.0 Plt Count 185 MPV 8.4 Absolute Neuts (auto) Neutrophils % Lymphocytes % Monocytes % Eosinophils % Basophils % Nucleated RBC % PT with INR 10.10 INR 0.86 PTT (Actin FS) 26.3 Sodium 136 Potassium 3.8 Chloride 104 Carbon Dioxide 27 Anion Gap 6 L BUN 19 H Creatinine 0.9 Creat Clearance w eGFR 89.69 POC Glucometer Random Glucose 251 H Hemoglobin A1c % Calcium 8.3 L Phosphorus 3.4 Magnesium 2.1 Total Bilirubin 0.4 AST 13 L ALT 45 Alkaline Phosphatase 57 Total Protein 5.9 L Albumin 2.9 L Urine Color Urine Appearance Urine pH Ur Specific Needles Urine Protein Urine Glucose (UA) Urine Ketones Urine Blood Urine Nitrite Urine Bilirubin Urine Urobilinogen Ur Leukocyte Esterase Acetone, Qual 10/01/18 10/01/18 10/01/18 07:20 08:00 11:33 WBC RBC Hgb Hct MCV MCH MCHC RDW Plt Count MPV Absolute Neuts (auto) Neutrophils % Lymphocytes % Monocytes % Eosinophils % Basophils % Nucleated RBC % PT with INR INR PTT (Actin FS) Sodium Potassium Chloride Carbon Dioxide Anion Gap BUN Creatinine Creat Clearance w eGFR POC Glucometer 251 207 Random Glucose Hemoglobin A1c % 10.1 H Calcium Phosphorus Magnesium Total Bilirubin AST ALT Alkaline Phosphatase Total Protein Albumin Urine Color Urine Appearance Urine pH Ur Specific Needles Urine Protein Urine Glucose (UA) Urine Ketones Urine Blood Urine Nitrite Urine Bilirubin Urine Urobilinogen Ur Leukocyte Esterase Acetone, Qual Problem List - Problems (1) Skin infection Code(s): L08.9 - LOCAL INFECTION OF THE SKIN AND SUBCUTANEOUS TISSUE, UNSP (2) Uncontrolled diabetes mellitus Code(s): E11.65 - TYPE 2 DIABETES MELLITUS WITH HYPERGLYCEMIA Qualifiers: Diabetes mellitus type: type 1 Glycemic state: with hyperglycemia Qualified Code(s): E10.65 - Type 1 diabetes mellitus with hyperglycemia (3) Rheumatoid arthritis Code(s): M06.9 - RHEUMATOID ARTHRITIS, UNSPECIFIED Assessment/Plan 48 y.o. male with PMH of DM, RA, gout, obesity presenting with c/o hyperglycemia x 1 wk. Sustained LLE leg laceration >2 wks ago which was sutured , mild erythema surrounding site. PCN allergic. Mild cellulitis LLE Hyperglycemia/Uncontrolled DM -- on Vancomycin, will switch to clindamycin on discharge to complete total of 7 days of antibiotics -- Leukocytosis resolved continue monitor Will follow Thank you
--- NOTE | 2018-10-01 13:13 | EKG ---
Test Reason : Blood Pressure : / mmHG Vent. Rate : 088 BPM Atrial Rate : 088 BPM P-R Int : 154 ms QRS Dur : 094 ms QT Int : 360 ms P-R-T Axes : 053 000 032 degrees QTc Int : 435 ms NORMAL SINUS RHYTHM NORMAL ECG WHEN COMPARED WITH ECG OF 30-SEP-2018 08:36, NO SIGNIFICANT CHANGE WAS FOUND Confirmed by MD SHEILA, JOSE ([id number]) on 10/01/2018 1:13:17 PM Referred By: DERREK REN Confirmed By:JOSE SOSA MD
--- NOTE | 2018-10-01 14:21 | PN ---
Physical Exam: SUBJECTIVE: Patient seen and examined, denies any fevers, chills, leg pain or new concerns. OBJECTIVE: Vital Signs Period Temp Pulse Resp BP Sys/Arguello Pulse Ox Last 24 Hr 97.6 F-98.4 F 70-86 16-20 144-148/92-92 96-98 Intake & Output 09/28/18 09/29/18 09/30/18 10/01/18 23:59 23:59 23:59 23:59 Intake Total 315 Balance 315 Weight 274 lb 3.2 oz GENERAL: The patient is awake, alert, and fully oriented, in no acute distress. HEAD: Normal with no signs of trauma. EYES: PERRL, extraocular movements intact, sclera anicteric, conjunctiva clear. No ptosis. ENT: Ears normal, nares patent, oropharynx clear without exudates, moist mucous membranes. NECK: soft, supple, no JVD LUNGS: Breath sounds equal, clear to auscultation bilaterally, no wheezes, no crackles, no accessory muscle use. HEART: Regular rate and rhythm S1S2 ABDOMEN: Soft, obese, nontender, nondistended, normoactive bowel sounds, no guarding, no rebound. EXTREMITIES: LLE lower 1/3rd, healed wound with scab, and minimal surrounding erythema, no swelling or tenderness noted PSYCH: Normal mood, normal affect. SKIN: Warm, dry, normal turgor, no rashes or lesions noted Laboratory Results - last 24 hr 10/01/18 10/01/18 10/01/18 01:08 01:08 01:08 WBC 12.9 H RBC 4.39 Hgb 13.8 Hct 40.6 MCV 92.4 MCH 31.4 MCHC 34.0 RDW 15.0 Plt Count 202 MPV 8.9 Absolute Neuts (auto) 10.6 H Neutrophils % 82.2 Lymphocytes % 10.3 D Monocytes % 6.5 Eosinophils % 0.1 Basophils % 0.9 Nucleated RBC % 0 PT with INR INR PTT (Actin FS) Sodium 129 L Potassium 4.3 Chloride 95 L Carbon Dioxide 26 Anion Gap 7 L BUN 23 H Creatinine 1.3 Creat Clearance w eGFR 58.67 POC Glucometer Random Glucose 593 H* Hemoglobin A1c % Calcium 8.6 Phosphorus Magnesium Total Bilirubin 0.4 AST 18 ALT 53 Alkaline Phosphatase 71 Total Protein 6.5 Albumin 3.2 L Urine Color Straw Urine Appearance Clear Urine pH 5.0 Ur Specific [place] 1.025 Urine Protein Negative Urine Glucose (UA) 3+ H Urine Ketones Negative Urine Blood Negative Urine Nitrite Negative Urine Bilirubin Negative Urine Urobilinogen Negative Ur Leukocyte Esterase Negative Acetone, Qual Positive small 1+ 10/01/18 10/01/18 10/01/18 06:35 06:35 06:35 WBC 10.0 RBC 4.13 Hgb 13.0 Hct 37.6 MCV 91.0 MCH 31.3 MCHC 34.4 RDW 15.0 Plt Count 185 MPV 8.4 Absolute Neuts (auto) Neutrophils % Lymphocytes % Monocytes % Eosinophils % Basophils % Nucleated RBC % PT with INR 10.10 INR 0.86 PTT (Actin FS) 26.3 Sodium 136 Potassium 3.8 Chloride 104 Carbon Dioxide 27 Anion Gap 6 L BUN 19 H Creatinine 0.9 Creat Clearance w eGFR 89.69 POC Glucometer Random Glucose 251 H Hemoglobin A1c % Calcium 8.3 L Phosphorus 3.4 Magnesium 2.1 Total Bilirubin 0.4 AST 13 L ALT 45 Alkaline Phosphatase 57 Total Protein 5.9 L Albumin 2.9 L Urine Color Urine Appearance Urine pH Ur Specific [place] Urine Protein Urine Glucose (UA) Urine Ketones Urine Blood Urine Nitrite Urine Bilirubin Urine Urobilinogen Ur Leukocyte Esterase Acetone, Qual 10/01/18 10/01/18 10/01/18 07:20 08:00 11:33 WBC RBC Hgb Hct MCV MCH MCHC RDW Plt Count MPV Absolute Neuts (auto) Neutrophils % Lymphocytes % Monocytes % Eosinophils % Basophils % Nucleated RBC % PT with INR INR PTT (Actin FS) Sodium Potassium Chloride Carbon Dioxide Anion Gap BUN Creatinine Creat Clearance w eGFR POC Glucometer 251 207 Random Glucose Hemoglobin A1c % 10.1 H Calcium Phosphorus Magnesium Total Bilirubin AST ALT Alkaline Phosphatase Total Protein Albumin Urine Color Urine Appearance Urine pH Ur Specific [place] Urine Protein Urine Glucose (UA) Urine Ketones Urine Blood Urine Nitrite Urine Bilirubin Urine Urobilinogen Ur Leukocyte Esterase Acetone, Qual Active Medications Generic Name Dose Route Start Last Admin Trade Name Freq PRN Reason Stop Dose Admin Atorvastatin Calcium 40 mg 10/01/18 22:00 Lipitor - PO HS SANDRA Clindamycin HCl 300 mg 10/01/18 18:00 Cleocin - PO Q6HPO SANDRA Enoxaparin Sodium 40 mg 10/01/18 10:00 10/01/18 09:04 Lovenox - SQ 40 mg DAILY SANDRA Administration Insulin Aspart 1 vial 10/01/18 14:00 Novolog Vial Sliding Scale - SQ Q4HPO [facility] Protocol Insulin Detemir 35 units 10/01/18 22:00 Levemir Vial SQ HS SANDRA Losartan Potassium 50 mg 10/01/18 10:00 10/01/18 09:04 Cozaar - PO 50 mg DAILY SANDRA Administration ASSESSMENT/PLAN: 48 yom with PMhx of IDDM, HTN, HLD, gout, right leg laceration on 09/13 s/p sutures, frequent ED visits for hyperglycemia, last seen a day ago, comes back with hyperglycemia -Hyperglycemia, strongly suspect medication/dietary non complaint -RLE laceration- -IDDM -HLD -HTN -Gout Plan: patient reports running out of insulin 3 days ago, but picked up yesterday and took the dose. Per discussion with [facility], prescription not picked up yet. A1c >10 Suspect medication+/- dietary non compliance. Follow up endocrine input. RLE wound clean, wound care. ID input noted. Clindamycin x 7 days. Continue losartan[facility]statin[id number], meds reconciled Dispo in 24 hours if blood sugars overall improved and no new concerns. Plan discussed with patient and nursing, all questions answered. Visit type - Emergency Visit Emergency Visit: Yes ED Registration Date: 10/01/18 Care time: The patient presented to the Emergency Department on the above date and was hospitalized for further evaluation of their emergent condition. - New Patient This patient is new to me today: Yes Date on this admission: 10/01/18 - Critical Care Critical Care patient: No - Discharge Referral Referred to [facility] No
[2018-10-01] MEDS: CLINDAMYCIN HCL 150 MG CAPSULE (FP) PO SCH ×2 (17:18→23:05)
[2018-10-01] MEDS: ACETAMINOPHEN 325 MG TABLET (FP) PO PRN (17:58)
--- NOTE | 2018-10-01 21:13 | CONSULT ---
Consult Consult Specialty:: ENDOCRINOLOGY Referred by:: DR.MARK SINGH Reason for Consultation:: DIABETES MELLITUS UNCONTROLLED - History of Present Illness Chief Complaint: HIGH SUGARS History of Present Illness: 48 year old man with history of DM2,HTN, HLD, and gout presents to the ER for recurrent hyperglycemia. Patient states his diabetes is not well controlled Patient Since injury to left leg,reports approximately 2-1/2 weeks ago, he kicked a piece of metal causing a laceration to the left lower anterior leg. he had receive tetnus shot in past 5 years. Patient denies being on any antibiotics. For the past week his blood sugars have been elevated above 400mg/ dl on a daily basis.he has had polyuria and polydipsia,numbness in hands and feet.he denies, nausea or vomiting. - Past Medical History Rheumatology: Yes: Gout, Rheumatoid Arthritis Endocrine: Yes: Diabetes Mellitus - Alcohol/Substance Use Hx Alcohol Use: No - Smoking History Smoking history: Never smoked Have you smoked in the past 12 months: No Aproximately how many cigarettes per day: 0 If you are a former smoker, when did you quit?: teenager - Social History Usual Living Arrangement: With Spouse Home Medications - Allergies Allergies/Adverse Reactions: Allergies Allergy/AdvReac Type Severity Reaction Status Date / Time Penicillins Allergy Severe Hives Verified 10/01/18 02:31 - Home Medications Home Medications: Ambulatory Orders Allopurinol 300 mg PO DAILY 09/13/18 Atorvastatin Ca [Lipitor] 40 mg PO HS 09/13/18 Cholecalciferol (Vitamin D3) [Vitamin D3] 1,000 unit PO DAILY 09/13/18 Insulin Sliding Scale [Novolog Vial Sliding Scale -] See Protocol SQ ASDIR 09/13 Losartan Potassium 50 mg PO DAILY 09/13/18 Insulin Glargine,Hum.rec.anlog [Tourositao Solostar] 52 unit SQ AM 5 Days #1 insuln.pen 09/30/18 Family Disease History - Family Disease History Family Disease History: Diabetes: Father (CAD; "small [place]" in his 50s), Mother ( CABG in her 50s) Review of Systems - Review of Systems Constitutional: reports: Weakness Eyes: reports: No Symptoms HENT: reports: No Symptoms Neck: reports: No Symptoms Cardiovascular: reports: No Symptoms Respiratory: reports: No Symptoms Gastrointestinal: reports: Bloating, Constipation Genitourinary: reports: No Symptoms Breasts: reports: No Symptoms Reported Musculoskeletal: reports: Joint Pain, Joint Swelling, Muscle Weakness Endocrine: reports: Unexplained Weight Gain Physical Exam Vital Signs: Vital Signs Temperature 98.4 F 10/01/18 18:00 Pulse Rate 76 10/01/18 18:00 Respiratory Rate 20 10/01/18 18:00 Blood Pressure 142/88 10/01/18 18:00 O2 Sat by Pulse Oximetry (%) 96 10/01/18 09:00 Constitutional: Yes: Calm Eyes: Yes: EOM Intact HENT: Yes: Normocephalic Neck: Yes: Trachea Midline Cardiovascular: Yes: Regular Rate and Rhythm Respiratory: Yes: CTA Bilaterally Gastrointestinal: Yes: Normal Bowel Sounds ...Rectal Exam: Yes: Deferred Renal/: Yes: WNL Breast(s): Yes: WNL Musculoskeletal: Yes: Muscle Pain, Muscle Weakness Extremities: Yes: Delayed Capillary Refill Edema: LLE: 1+, RLE: 1+ Wound/Incision: Yes: Well Approximated, Open to air, Reddened Neurological: Yes: Alert, Oriented Labs: CBC, BMP 10/01/18 06:35 10/01/18 06:35 Problem List - Problems (1) Type 2 diabetes mellitus with diabetic neuropathic arthropathy Code(s): E11.610 - TYPE 2 DIABETES MELLITUS W DIABETIC NEUROPATHIC ARTHROPATHY (2) Skin infection Code(s): L08.9 - LOCAL INFECTION OF THE SKIN AND SUBCUTANEOUS TISSUE, UNSP (3) Uncontrolled diabetes mellitus Code(s): E11.65 - TYPE 2 DIABETES MELLITUS WITH HYPERGLYCEMIA Qualifiers: Diabetes mellitus type: type 1 Glycemic state: with hyperglycemia Qualified Code(s): E10.65 - Type 1 diabetes mellitus with hyperglycemia (4) Abnormal laboratory test Code(s): R89.9 - UNSP ABNORMAL FINDING IN SPECIMENS FROM OTH ORG/TISS (5) Acute gout Code(s): M10.9 - GOUT, UNSPECIFIED Qualifiers: Gout site: unspecified site Gout etiology: unspecified cause Qualified Code(s): M10.9 - Gout, unspecified (6) Acute renal failure Code(s): N17.9 - ACUTE KIDNEY FAILURE, UNSPECIFIED Qualifiers: Acute renal failure type: unspecified Qualified Code(s): N17.9 - Acute kidney failure, unspecified (7) Atypical chest pain Code(s): R07.89 - OTHER CHEST PAIN (8) Back pain Code(s): M54.9 - DORSALGIA, UNSPECIFIED Assessment/Plan Current Active Problems dm2 Abnormal Lab Results 10/01/18 10/01/18 10/01/18 01:08 01:08 01:08 WBC 12.9 H Absolute Neuts (auto) 10.6 H Sodium 129 L Chloride 95 L Anion Gap 7 L BUN 23 H Random Glucose 593 H* Hemoglobin A1c % Calcium AST Total Protein Albumin 3.2 L Urine Glucose (UA) 3+ H 10/01/18 10/01/18 06:35 08:00 WBC Absolute Neuts (auto) Sodium Chloride Anion Gap 6 L BUN 19 H Random Glucose 251 H Hemoglobin A1c % 10.1 H Calcium 8.3 L AST 13 L Total Protein 5.9 L Albumin 2.9 L Urine Glucose (UA) Skin infection (Acute) Uncontrolled diabetes mellitus (Acute) diabetes mellitus neuropathy morbid obesity hypertension hyperlipidemia Laboratory Tests 10/01/18 10/01/18 10/01/18 01:08 06:35 07:20 POC Glucometer 251 Random Glucose 593 H* 251 H 10/01/18 10/01/18 15:05 17:55 POC Glucometer 207 247 Random Glucose plan: bgm q4hr levemir 45 units am levemir 25 units hs titrate as needed nutrtion care
[2018-10-01] MEDS ORDERED: INSULIN (LEVEMIR) 100 UNITS/ML UNITS SQ SCH (22:00)
[2018-10-01] MEDS ORDERED: ATORVASTATIN CA 40 MG TABLET (FP) PO SCH (22:00)
[2018-10-02] MEDS: INSULIN SLIDING SCALE (NOVOLOG) 1 VIAL SQ SCH ×3 (02:57→10:39)
[2018-10-02 05:40] VITALS: BP 144/91; PULSE 82; TEMP 97.6
[2018-10-02] MEDS: CLINDAMYCIN HCL 150 MG CAPSULE (FP) PO SCH (06:40)
[2018-10-02] MEDS: ACETAMINOPHEN 325 MG TABLET (FP) PO PRN (06:41)
[2018-10-02] MEDS ORDERED: INSULIN (LEVEMIR) 100 UNITS/ML UNITS SQ SCH (07:00)
[2018-10-02 09:01] LABS: ANION GAP 7 MMOL/L (8-16); BLOOD UREA NITROGEN 12 mg/dL (7-18); CALCIUM 8.4 mg/dL (8.5-10.1); CHLORIDE 104 mmol/L (98-107); CO2 28 mmol/L (21-32); CREATININE 0.9 mg/dL (0.55-1.3); GLUCOSE,RANDOM 83 mg/dL (74-106); POTASSIUM 3.4 mmol/L (3.5-5.1); SODIUM 139 mmol/L (136-145)
[2018-10-02] MEDS: LOSARTAN POTASSIUM 50 MG TABLET (FP) PO SCH (09:10)
[2018-10-02] MEDS: ENOXAPARIN NA (PORCINE) 40 MG/0.4 ML DISP.SYRIN SQ SCH (10:32)
[2018-10-02] MEDS ORDERED: INSULIN (NOVOLOG) ASPART 100 UNITS/ML 10ML VIAL ONE (10:40)
--- NOTE | 2018-10-02 11:13 | DS ---
Physical Exam: SUBJECTIVE: Patient seen and examined, no complaints or pain. OBJECTIVE: Vital Signs Period Temp Pulse Resp BP Sys/Arguello Pulse Ox Last 24 Hr 97.2 F-98.4 F 76-90 17-22 142-154/88-94 96 PHYSICAL EXAM GENERAL: The patient is awake, alert, and fully oriented, in no acute distress. HEAD: Normal with no signs of trauma. EYES: PERRL, extraocular movements intact, sclera anicteric, conjunctiva clear. No ptosis. ENT: Ears normal, nares patent, oropharynx clear without exudates, moist mucous membranes. NECK: soft, supple, no JVD LUNGS: Breath sounds equal, clear to auscultation bilaterally, no wheezes, no crackles, no accessory muscle use. HEART: Regular rate and rhythm S1S2 ABDOMEN: Soft, obese, nontender, nondistended, normoactive bowel sounds, no guarding, no rebound. EXTREMITIES: LLE lower 1/3rd, healed wound with scab, and minimal surrounding erythema, no swelling or tenderness noted PSYCH: Normal mood, normal affect. SKIN: Warm, dry, normal turgor, no rashes or lesions noted LABS Laboratory Results - last 24 hr 10/01/18 10/01/18 10/01/18 08:00 11:33 15:05 Sodium Potassium Chloride Carbon Dioxide Anion Gap BUN Creatinine Creat Clearance w eGFR POC Glucometer 207 207 Random Glucose Hemoglobin A1c % 10.1 H Calcium 10/01/18 10/01/18 10/02/18 17:55 23:03 02:57 Sodium Potassium Chloride Carbon Dioxide Anion Gap BUN Creatinine Creat Clearance w eGFR POC Glucometer 247 136 126 Random Glucose Hemoglobin A1c % Calcium 10/02/18 10/02/18 10/02/18 06:43 07:30 10:38 Sodium 139 Potassium 3.4 L Chloride 104 Carbon Dioxide 28 Anion Gap 7 L BUN 12 Creatinine 0.9 Creat Clearance w eGFR 89.69 POC Glucometer 94 259 Random Glucose 83 Hemoglobin A1c % Calcium 8.4 L HOSPITAL COURSE: Date of Admission:10/01/18 Date of Discharge: 10/02/18 Minutes to complete discharge: 40 Discharge Summary Reason For Visit: UNCONTROLLED DIABETES MELLITUS Current Active Problems Skin infection (Acute) Type 2 diabetes mellitus with diabetic neuropathic arthropathy (Acute) Uncontrolled diabetes mellitus (Acute) Hospital Course: 48 yom with PMhx of IDDM, HTN, HLD, gout, left leg laceration on 09/13 s/p sutures, frequent ED visits for hyperglycemia, last seen a day prior to admission admitted with Blood sugars >500s. Endocrinology was consulted, he was placed on levemir and titrated. His A1c was noted >10. No concerning blood sugar readings were noted during his stay. He is advised to resume home insulin regimen with Toujeo and novolog sliding scale and follow up with Dr. Conrad tomorrow for further management. Patient reported running out of his insulin few days prior to admission and resuming it on the day he came to the hospital. Prior records raise concerns for medication and dietary non compliance. Diabetic education was provided. Infectious disease was consulted and he was placed on 1 week of clindamycin. No fevers, leucocytosis, wound discharge or concerns were noted. He will be discharged in stable condition. Condition: Stable - Instructions Diet, Activity, Other Instructions: MEDICATION: Continue Insulin Toujeo 52 units in morning and Novolog sliding scale as before. COntinue all your home medications as before. You are started on antibiotic clindamcin 300 mg 4 times daily, for 5 days. Take as directed and if you notice any belly pain, bloody diarrhea, rash or new concerns, please call your doctor or come to ED. FOLLOW UP; You will need to follow up with Dr. Conrad in his office tomorrow 10/03/2018 Please call him at [phone](his cell phone) tomorrow morning to see what time you will be seen. Home blood glucose monitoring before meals and at bedtime. Maintain a diary and notify Dr. Conrad of the same. If you notice any fevers, chills, pain or discharge from leg, Blood sugars >400 please call 911 or come to ED. Referrals: Carlos Conrad MD [Staff Physician] - 10/03/18 Disposition: HOME - Home Medications Comprehensive Discharge Medication List: Ambulatory Orders Allopurinol 300 mg PO DAILY 09/13/18 Atorvastatin Ca [Lipitor] 40 mg PO HS 09/13/18 Cholecalciferol (Vitamin D3) [Vitamin D3] 1,000 unit PO DAILY 09/13/18 Insulin Sliding Scale [Novolog Vial Sliding Scale -] See Protocol SQ ASDIR 09/13 Losartan Potassium 50 mg PO DAILY 09/13/18 Insulin Glargine,Hum.rec.anlog [Esdras Pham] 52 unit SQ AM 5 Days #1 insuln.pen 09/30/18 Clindamycin [Cleocin -] 300 mg PO Q6HPO 5 Days #20 capsule 10/02/18 This patient is new to me today: No Emergency Visit: Yes ED Registration Date: 10/01/18 Care time: The patient presented to the Emergency Department on the above date and was hospitalized for further evaluation of their emergent condition. Critical Care patient: No - Discharge Referral Referred to [facility] Med P.C.: No
== END 2018-10-02 11:40 | disposition home or self-care (01) | DRG 638 ==
LOC: JER 01:06 → JERBED 02:39 → J5S 08:20
PROVIDERS: ADMIT Internal Medicine; ATTEND Hospitalist
DX: E11.65 Type 2 diabetes mellitus with hyperglycemia (principal); L03.116 Cellulitis of left lower limb; I10 Essential (primary) hypertension; E78.5 Hyperlipidemia, unspecified; M10.9 Gout, unspecified; E11.610 Type 2 diabetes mellitus with diabetic neuropathic arthropathy; E66.9 Obesity, unspecified; Z68.38 Body mass index [BMI] 38.0-38.9, adult; Z79.4 Long term (current) use of insulin; M06.9 Rheumatoid arthritis, unspecified; D72.829 Elevated white blood cell count, unspecified
CPT/HCPCS: 36415; 80048; 80053; 81003; 82009; 82962; 83036; 83735; 84100; 85025; 85027; 85610; 85730; 93005; 93010; 99285-25; J7030

== ENCOUNTER 2018-10-14 15:28 | Emergency (ER) | payer BC ==
[2018-10-14 15:39] VITALS: TEMP 98.3; BMI 36.9
[2018-10-14] MEDS ORDERED: LIDOCAINE 5% TOPICAL PATCH TP ONE (16:39)
--- NOTE | 2018-10-14 16:49 | PDOC ---
Attending Attestation - Resident Resident Name: Sa Georgiaira - ED Attending Attestation I have performed the following: I have examined & evaluated the patient, The case was reviewed & discussed with the resident, I agree w/resident's findings & plan, Exceptions are as noted - HPI HPI: 10/14/18 17:13 48y M hx of IDDM, gout, presents with complaint of lower back pain and hyperglycemia. Notes he had some blurry vision and his 'hyperglycemic symptoms' . had visited his PMD on wednesday and had his meds changed, but notes his BGM is not very well controlled (typically reads 'hi' at home). pt endorses complaince with diet - eats mostly veggis/chicken. stays away from carbs, juices , sodas. pt endosres b/l lower back pain radiating to the hips after twisting while walking his dog. improves with motrin. no associated radiation, changes to bowel function, urinary function, associated numbness/tingling/weakness. pt has appt with his endo on wednesday - Physicial Exam PE: 10/14/18 17:45 GENERAL: The patient is awake, alert, and fully oriented, Nontoxic - in no acute distress. HEAD: Normocephalic, atraumatic. EYES: extraocular movements intact, sclera anicteric, conjunctiva clear. ENT: Normal voice, dry mucous membranes. NECK: Normal range of motion, supple LUNGS: Breath sounds equal, clear to auscultation bilaterally. No wheezes, no rhonchi, no rales. HEART: Regular rate and rhythm, normal S1 and S2 without murmur, rub or gallop. ABDOMEN: Soft, nontender, normoactive bowel sounds. No guarding, no rebound. . No CVA tenderness EXTREMITIES: Normal range of motion, no edema. BACK mild ttp to parapsinal lumbar muscles to the left, no focal bony tenderness , crepitus, ertyhema, induration NEUROLOGICAL: No facial assymetry, Normal speech, PSYCH: Normal mood, normal affect. SKIN: Warm, Dry, normal turgor, - Medical Decision Making 10/14/18 17:19 labs reviewed no signs of dka bgm noted in the 400s will give insulin and fluids suspect his back pain is musckular in nature. 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
[2018-10-14 16:52] LABS: BASO % 0.7 % (0-2.0); EOS % 0.9 % (0-4.5); HEMATOCRIT 39.7 % (35.4-49); HEMOGLOBIN 13.4 GM/dl (11.7-16.9); LYMPH % 21.7 % (8-40); MCH 31.3 pg (25.7-33.7); MCHC 33.8 g/dl (32.0-35.9); MEAN CELL VOLUME 92.6 fl (80-96); MEAN PLT VOLUME 8.8 fl (7.5-11.1); MONO % 6.3 % (3.8-10.2); NEUT % 70.4 % (42.8-82.8); PLATELET COUNT 223 K/MM3 (134-434); RBC 4.29 M/mm3 (4.00-5.60); RDW 14.3 % (11.9-15.9); WHITE BLOOD COUNT 9.6 K/mm3 (4.0-10.8)
[2018-10-14] MEDS ORDERED: LIDOCAINE 5% TOPICAL PATCH ONE (16:54)
--- NOTE | 2018-10-14 17:02 | PDOC ---
History of Present Illness <Alexsander Rodríguez - Last Filed: 10/14/18 18:45> - General History Source: Patient Exam Limitations: No Limitations - History of Present Illness Initial Comments: 10/14/18 16:56 Pt is a 48yo M with PMH of IDDM, HTN, Gout presenting to ED for low back pain and elevated glucose levels. Pt states that he was walking his dog a few days ago when the dog started to run and pt twisted his back. Pain is mostly in the lower back and radiates to the hips, worse in the morning when he is getting out of bed. He states that after he takes Motrin, the pain is tolerable. Feels sharp. Denies numbness/tinging, weakness, saddle anesthesia, incontinence, headaches. Pt states that for the past few days his bgl is high when he checks it on the glucometer every morning. He takes 50 units of insulin and sliding scale of novolog in the mornings which is what brought him to the ED today. Denies abdominal pain, n/v/d. PMD: Esmeralda PMH: see hpi PSH: Meds: Allergies: PCN Social: denies <Michelle Ho - Last Filed: 10/14/18 19:20> - General Chief Complaint: Blood Sugar Problem Stated Complaint: HIGH BLOOD SUGAR, BACK PAIN Time Seen by Provider: 10/14/18 15:41 Past History <Alexsander Rodríguez - Last Filed: 10/14/18 18:45> - Past Medical History Anemia: No Asthma: No Cancer: No Cardiac Disorders: No CVA: No COPD: No CHF: No Dementia: No Diabetes: Yes GI Disorders: No Disorders: No HTN: Yes Hypercholesterolemia: Yes Liver Disease: No Seizures: No Thyroid Disease: No Other medical history: GOUT, RA - Surgical History Abdominal Surgery: No Appendectomy: No Cardiac Surgery: No Cholecystectomy: No Lung Surgery: No Neurologic Surgery: No Orthopedic Surgery: Yes (right ankle) - Immunization History Immunization Up to Date: Yes - Suicide/Smoking/Psychosocial Hx Smoking Status: No Smoking History: Never smoked Have you smoked in the past 12 months: No Number of Cigarettes Smoked Daily: 0 If you are a former smoker, when did you quit?: teenager Information on smoking cessation initiated: No Hx Alcohol Use: No Drug/Substance Use Hx: No Substance Use Type: None Hx Substance Use Treatment: No <Georgia,Michelle - Last Filed: 10/14/18 19:20> - Past Medical History Allergies/Adverse Reactions: Allergies Allergy/AdvReac Type Severity Reaction Status Date / Time Penicillins Allergy Severe Hives Verified 10/14/18 15:30 Home Medications: Ambulatory Orders Allopurinol 300 mg PO DAILY 09/13/18 Atorvastatin Ca [Lipitor] 40 mg PO HS 09/13/18 Cholecalciferol (Vitamin D3) [Vitamin D3] 1,000 unit PO DAILY 09/13/18 Insulin Sliding Scale [Novolog Vial Sliding Scale -] See Protocol SQ ASDIR 09/13 Losartan Potassium 50 mg PO DAILY 09/13/18 Insulin Glargine,Hum.rec.anlog [Toirma Soljose alberto] 52 unit SQ AM 5 Days #1 insuln.pen 09/30/18 Review of Systems - Review of Systems Constitutional: No: Chills, Fever, Weakness HEENTM: No: Symptoms Reported Respiratory: No: Cough, Shortness of Breath Cardiac (ROS): No: Chest Pain, Lightheadedness, Palpitations ABD/GI: No: Constipated, Diarrhea, Nausea, Vomiting, Abdominal cramping : No: Symptoms Reported Musculoskeletal: Yes: See HPI, Back Pain Integumentary: No: Symptoms Reported Neurological: No: Symptoms reported <Michelle Ho - Last Filed: 10/14/18 19:20> *Physical Exam - Vital Signs Last Vital Signs Temp Pulse Resp BP Pulse Ox 98.3 F 108 H 20 145/99 97 10/14/18 15:28 10/14/18 15:28 10/14/18 15:28 10/14/18 15:28 10/14/18 15:28 <AnneAlexsander - Last Filed: 10/14/18 18:45> - Vital Signs Last Vital Signs Temp Pulse Resp BP Pulse Ox 98.3 F 108 H 20 145/99 97 10/14/18 15:28 10/14/18 15:28 10/14/18 15:28 10/14/18 15:28 10/14/18 15:28 - Physical Exam General Appearance: Yes: Appropriately Dressed, Obese. No: Apparent Distress HEENT: positive: EOMI, MARGARITA, Normal ENT Inspection Neck: positive: Trachea midline, Supple. negative: Lymphadenopathy (R), Lymphadenopathy (L) Respiratory/Chest: positive: Lungs Clear, Normal Breath Sounds. negative: Accessory Muscle Use, Crackles, Rales Cardiovascular: positive: Regular Rhythm, Regular Rate, S1, S2. negative: Edema , JVD, Murmur Vascular Pulses: Carotid (R): 2+, Carotid (L): 2+, Dorsalis-Pedis (R): 2+, Doralis-Pedis (L): 2+ Gastrointestinal/Abdominal: positive: Normal Bowel Sounds, Soft. negative: Tender Musculoskeletal: positive: Muscle Spasm. negative: CVA Tenderness, Vertebral Tenderness Extremity: positive: Normal Capillary Refill. negative: Pedal Edema, Swelling Integumentary: positive: Normal Color, Dry, Warm Neurologic: positive: education rn II-XII NML intact, Fully Oriented, Alert, Normal Mood/ Affect, Normal Response, Motor Strength 5/5 <Michelle Ho - Last Filed: 10/14/18 19:20> ED Treatment Course - LABORATORY CBC & Chemistry Diagram: 10/14/18 16:30 10/14/18 16:30 - ADDITIONAL ORDERS Additional order review: Laboratory Results 10/14/18 10/14/18 10/14/18 18:24 16:30 15:39 Sodium 128 L Potassium 4.1 Chloride 94 L Carbon Dioxide 23 Anion Gap 11 BUN 30 H Creatinine 1.1 Creat Clearance w eGFR 71.15 POC Glucometer 336 388 Random Glucose 431 H* Calcium 8.9 Total Bilirubin 0.8 AST 24 ALT 33 Alkaline Phosphatase 56 Total Protein 6.0 L Albumin 3.6 10/14/18 10/14/18 10/14/18 18:24 16:30 15:39 RBC 4.29 MCV 92.6 MCHC 33.8 RDW 14.3 MPV 8.8 Neutrophils % 70.4 Lymphocytes % 21.7 Monocytes % 6.3 Eosinophils % 0.9 Basophils % 0.7 POC Glucometer 336 388 - Medications Given in the ED: ED Medications Discontinued Medications Generic Name Dose Route Start Last Admin Trade Name Freq PRN Reason Stop Dose Admin Sodium Chloride 1,000 mls @ 1,000 mls/hr 10/14/18 17:18 10/14/18 16:30 Normal Saline - IV 10/14/18 18:17 1,000 mls/hr .Q1H ONE Administration Insulin Human Regular 8 units 10/14/18 17:18 10/14/18 17:23 Novolin R Vial *For Ivpush Or Iv Drip Only* SQ 10/14/18 17:19 8 units ONCE ONE Administration Lidocaine 1 patch 10/14/18 16:39 10/14/18 16:56 Lidoderm Patch - TP 10/14/18 16:40 1 patch ONCE ONE Administration <AnneJethroAlexsander - Last Filed: 10/14/18 18:45> - LABORATORY CBC & Chemistry Diagram: 10/14/18 16:30 10/14/18 16:30 - ADDITIONAL ORDERS Additional order review: Laboratory Results 10/14/18 15:39 POC Glucometer 388 10/14/18 10/14/18 16:30 15:39 RBC 4.29 MCV 92.6 MCHC 33.8 RDW 14.3 MPV 8.8 Neutrophils % 70.4 Lymphocytes % 21.7 Monocytes % 6.3 Eosinophils % 0.9 Basophils % 0.7 POC Glucometer 388 - Medications Given in the ED: ED Medications Discontinued Medications Generic Name Dose Route Start Last Admin Trade Name Glendy PRN Reason Stop Dose Admin Lidocaine 1 patch 10/14/18 16:39 10/14/18 16:56 Lidoderm Patch - TP 10/14/18 16:40 1 patch ONCE ONE Administration <Michelle Ho - Last Filed: 10/14/18 19:20> Medical Decision Making - Medical Decision Making 10/14/18 17:01 Pt is a 48yo M with PMH of IDDM, HTN, Gout presenting to ED for low back pain and elevated glucose levels. Pt states that he was walking his dog a few days ago when the dog started to run and pt twisted his back. Pain is mostly in the lower back and radiates to the hips, worse in the morning when he is getting out of bed. He states that after he takes Motrin, the pain is tolerable. Feels sharp. Denies numbness/tinging, weakness, saddle anesthesia, incontinence, headaches. Pt states that for the past few days his bgl is high when he checks it on the glucometer every morning. He takes 50 units of insulin and sliding scale of novolog in the mornings which is what brought him to the ED today. Denies abdominal pain, n/v/d. Vitals: HR 108. BGM 388 PE: paravertebral tenderness, no spinal tenderness, negative SLR ddx includes but not limited to hyperglyemia (HHS v. DKA, infection), cord compression, fracture, muscle spasms low suspicion for fracture and cord compression given mechanism and paravertebral tenderness. no neuroligal complaints per pt. -lidoderm patch BGM 388. will order basic labs to check electrolytes. pt given NS. Labs significant for NA128 (could be reduced due to hyperglycemia). gluc 400s. will give 8u SQ insulin and repeat bgm. No anion gap. Low suspicion for dka/ hhs. Pt says that he usually eats chicken/vegetables. Does not eat lots of fruit or drink fruit juice. rpt gluc 300s. no acute pathology. can be dc home. pt has appt with pmd on Wednesday. given return precautions <Michelle Ho - Last Filed: 10/14/18 19:20> *DC/Admit/Observation/Transfer - Discharge Dispostion Decision to Admit order: No <Alexsander Rodríguez - Last Filed: 10/14/18 18:45> <Michelle Ho - Last Filed: 10/14/18 19:20> Diagnosis at time of Disposition: Hyperglycemia Back pain Qualifiers: Back pain location: low back pain Chronicity: acute Back pain laterality: left Sciatica presence: without sciatica Qualified Code(s): M54.5 - Low back pain - Discharge Dispostion Disposition: HOME Condition at time of disposition: Stable - Referrals Referrals: Vianney Ojeda MD [Staff Physician] - - Patient Instructions Printed Discharge Instructions: DI for Hyperglycemia -- Adult Additional Instructions: Please continue to check your blood sugar and use your insulin. Beware of your diet, and stay away from carbohydratse and sugared beverages. Follow up with Dr. Ojeda for further management of your blood sugar. Return if you have any further concerns. Print Language: BELARUSIAN - Post Discharge Activity Forms/Work/School Notes: Back to Work
[2018-10-14 17:06] LABS: ALBUMIN 3.6 g/dl (3.4-5.0); ALK PHOS 56 U/L (45-117); ANION GAP 11 MMOL/L (8-16); BILIRUBIN,TOTAL 0.8 mg/dl (0.2-1); BLOOD UREA NITROGEN 30 mg/dl (7-18); CALCIUM 8.9 mg/dl (8.5-10); CHLORIDE 94 mmol/L (98-107); CO2 23 mmol/L (21-32); CREATININE 1.1 mg/dl (0.55-1.3); POTASSIUM 4.1 mmol/L (3.5-5.1); SGOT/AST 24 U/L (15-37); SGPT/ALT 33 U/L (13-61); SODIUM 128 mmol/L (136-145)
[2018-10-14 17:08] LABS: GLUCOSE,RANDOM 431 mg/dl (74-106)
[2018-10-14] MEDS ORDERED: INSULIN REGULAR HUMAN 100 UNITS/ML *VIAL SQ ONE (17:18)
[2018-10-14] MEDS ORDERED: SODIUM CHLORIDE 1,000 ML IV ONE (17:18)
[2018-10-14] MEDS ORDERED: INSULIN REGULAR HUMAN 100 UNITS/ML *VIAL ONE (17:19)
[2018-10-14 18:33] VITALS: BP 138/74; PULSE 88
[2018-10-14] MEDS ORDERED: LIDOCAINE PATCH REMOVAL MC SCH (22:00)
== END 2018-10-14 18:40 | disposition home or self-care (01) ==
LOC: FER 15:28
PROC: 3E013VG Introduction of Insulin into Subcutaneous Tissue, Percutaneous Approach (ICD-10-PCS; principal; 2018-10-14)
PROC: 3E0337Z Introduction of Electrolytic and Water Balance Substance into Peripheral Vein, Percutaneous Approach (ICD-10-PCS; 2018-10-14)
DX: M54.5 Low back pain (principal); E11.65 Type 2 diabetes mellitus with hyperglycemia; I10 Essential (primary) hypertension
CPT/HCPCS: 36415; 80053; 82962; 85025; 99285-25; J7030

== ENCOUNTER 2018-11-10 20:37 | Emergency (ER) | payer BC ==
[2018-11-10] MEDS ORDERED: INSULIN REGULAR HUMAN 100 UNITS/ML *VIAL IVPUSH ONE (20:51)
[2018-11-10] MEDS ORDERED: SODIUM CHLORIDE 1,000 ML IV ONE ×2 (20:51→20:53)
[2018-11-10 20:52] VITALS: BP 146/94; PULSE 104; TEMP 97.7; BMI 36.9
[2018-11-10] MEDS ORDERED: INSULIN REGULAR HUMAN 100 UNITS/ML *VIAL ONE ×2 (20:56→21:34)
[2018-11-10 21:09] LABS: HEMATOCRIT 42.7 % (35.4-49); HEMOGLOBIN 14.3 GM/dl (11.7-16.9); MCHC 33.6 g/dl (32.0-35.9); MEAN CELL VOLUME 92.4 fl (80-96); MEAN PLT VOLUME 9.3 fl (7.5-11.1); PLATELET COUNT 325 K/MM3 (134-434); RBC 4.62 M/mm3 (4.00-5.60); RDW 13.3 % (11.9-15.9); WHITE BLOOD COUNT 13.8 K/mm3 (4.0-10.8)
[2018-11-10 21:19] LABS: ALBUMIN 3.7 g/dl (3.4-5.0); ALK PHOS 76 U/L (45-117); ANION GAP 11 MMOL/L (8-16); BILIRUBIN,TOTAL 0.6 mg/dl (0.2-1); BLOOD UREA NITROGEN 23 mg/dl (7-18); CALCIUM 8.7 mg/dl (8.5-10); CHLORIDE 93 mmol/L (98-107); CO2 22 mmol/L (21-32); POTASSIUM 4.4 mmol/L (3.5-5.1); SGOT/AST 26 U/L (15-37); SGPT/ALT 29 U/L (13-61); SODIUM 126 mmol/L (136-145); TOT PROT 6.7 g/dl (6.4-8.2)
[2018-11-10 21:25] LABS: GLUCOSE,RANDOM 625 mg/dl (74-106)
[2018-11-10 21:33] LABS: PLATELET ESTIMATE SLT INCREASE
[2018-11-10] MEDS ORDERED: INSULIN REGULAR HUMAN 100 UNITS/ML *VIAL IV STA (21:34)
[2018-11-10] MEDS ORDERED: INSULIN (NOVOLOG) ASPART 100 UNITS/ML 10ML VIAL ONE (23:08)
--- NOTE | 2018-11-10 23:11 | PDOC ---
Documentation entered by Trisha Gandhi SCRIBE, acting as scribe for Kurt Castro MD. Kurt Castro MD: This documentation has been prepared by the sallyibe, Trisha Gandhi SCRIBE, under my direction and personally reviewed by me in its entirety. I confirm that the documentation accurately reflects all work , treatment, procedures, and medical decision making performed by me. History of Present Illness - General Chief Complaint: Blood Sugar Problem Stated Complaint: high blood sugar Time Seen by Provider: 11/10/18 20:42 History Source: Patient Exam Limitations: No Limitations - History of Present Illness Initial Comments: 11/10/18 20:48 The patient is a 48-year-old male with a past medical history significant for HTN, IDDM Type 2, gout and RA presents to the emergency department with elevated blood sugar. The patient reports daily blood sugar check 3 times. The patient states his routine is as follows, he checks prior to breakfast then around 1 then around 8-9 pm prior to bed. The patient reports in the last 10 days he has noticed an elevation in his blood sugar, in the morning its elevated to the 600s afternoon and evening elevated to the 300s. The patient states he takes 52 units of Toujeo and Novolog in the morning and afternoon, and evening he takes insulin based on the sliding scale. The patient denies any changes to his routine, except having a big meal for Easter. The patient reports associated symptoms of blurry vision, dry mouth, and urinary frequency. Denies fever, chills, dyspnea, headache or weakness. The patient reports he had chest pain several days ago, non currently. Denies any recent steroid use. The patient reports multiple histories of hospitalization for elevated blood sugar. The patient reports he was seen at his PCPs office earlier today, who referred the patient to the ER for high blood sugar. PAST MEDICAL HISTORY: IDDM, HTN, RA and gout. PAST SURGICAL HISTORY: right ankle orthopedic surgery. FAMILY HISTORY: no pertinent history SOCIAL HISTORY: former smoker, no alcohol or drug use reported MEDICATIONS: reviewed ALLERGIES: As per nursing notes General: No fevers or chills, no weakness, no weight loss HEENT: +blurry vision and dry mouth. No sore throat,. No ear pain CardioVascular: No chest pain or shortness of breath Respiratory:No cough, or wheezing. Gastrointestinal: no nausea, vomiting, diarrhea or constipation, No rectal bleeding Genitourinary: Urinary frequency. No dysuria, hematuria. Musculoskeletal: No joint or muscle pain or swelling Neurologic: No headache, vertigo, dizziness or loss of consciousness Psychiatric: nor depression Skin: No rashes or easy bruising Endocrine: no increased thirst or abnormal weight change Allergic: no skin or latex allergy All other systems reviewed and normal GENERAL: The patient is awake, alert, and fully oriented, in no acute distress. HEAD: Normal with no signs of trauma. EYES: Pupils equal, round and reactive to light, extraocular movements intact, sclera anicteric, conjunctiva clear. EXTREMITIES: Normal range of motion, no edema. NEUROLOGICAL: Normal speech, normal gait. PSYCH: Normal mood, normal affect. SKIN: Warm, Dry, normal turgor, no rashes or lesions noted. 11/10/18 23:09 Assessment and plan: This is a 48-year-old insulin-dependent diabetic. Patient initially was a type II diabetic but then has to take insulin. Patient otherwise is healthy and is without complaints. Patient sugar was greater than 600 when he came in. Patient has received 2 L of fluid and 20 units of insulin. Patient's sugar is now around 400. We'll give patient had a 10 units of insulin and discharged home. Past History - Past Medical History Allergies/Adverse Reactions: Allergies Allergy/AdvReac Type Severity Reaction Status Date / Time Penicillins Allergy Severe Hives Verified 11/10/18 20:38 Home Medications: Ambulatory Orders Allopurinol 300 mg PO DAILY 09/13/18 Atorvastatin Ca [Lipitor] 40 mg PO HS 09/13/18 Cholecalciferol (Vitamin D3) [Vitamin D3] 1,000 unit PO DAILY 09/13/18 Insulin Sliding Scale [Novolog Vial Sliding Scale -] See Protocol SQ ASDIR 09/13 Losartan Potassium 50 mg PO DAILY 09/13/18 Insulin Glargine,Hum.rec.anlog [Toirma Solostelda] 52 unit SQ AM 5 Days #1 insuln.pen 09/30/18 Anemia: No Asthma: No Cancer: No Cardiac Disorders: No CVA: No COPD: No CHF: No Dementia: No Diabetes: Yes GI Disorders: No Disorders: No HTN: Yes Hypercholesterolemia: Yes Liver Disease: No Seizures: No Thyroid Disease: No - Surgical History Abdominal Surgery: No Appendectomy: No Cardiac Surgery: No Cholecystectomy: No Lung Surgery: No Neurologic Surgery: No Orthopedic Surgery: Yes (right ankle) - Immunization History Immunization Up to Date: Yes - Suicide/Smoking/Psychosocial Hx Smoking Status: No Smoking History: Never smoked Have you smoked in the past 12 months: No Number of Cigarettes Smoked Daily: 0 If you are a former smoker, when did you quit?: teenager Hx Alcohol Use: No Drug/Substance Use Hx: No Substance Use Type: None Hx Substance Use Treatment: No ED Treatment Course - LABORATORY CBC & Chemistry Diagram: 11/10/18 20:52 11/10/18 20:52 *DC/Admit/Observation/Transfer Diagnosis at time of Disposition: Hyperglycemia without ketosis - Discharge Dispostion Disposition: HOME Condition at time of disposition: Stable Decision to Admit order: No - Referrals - Patient Instructions Printed Discharge Instructions: DI for Hyperglycemia -- Adult Additional Instructions: Call your doctor in the morning and discuss with your doctor whether or not you should increase your insulin as you have been running high for the last several days Return to the emergency department immediately with ANY new, persistent or worsening symptoms. Continue any medications as previously prescribed by your physician. You should follow up with your primary doctor as soon as possible regarding today's emergency department visit. . Please make sure your doctor reviews the results of your emergency evaluation. Thank you for coming to the Emergency Department today for your care. It was a pleasure to see you today. Please note that your evaluation is INCOMPLETE until you follow-up with your doctor. . - Post Discharge Activity
--- NOTE | 2018-11-11 11:28 | EKG ---
Test Reason : Blood Pressure : / mmHG Vent. Rate : 103 BPM Atrial Rate : 103 BPM P-R Int : 160 ms QRS Dur : 092 ms QT Int : 402 ms P-R-T Axes : 000 -25 -28 degrees QTc Int : 526 ms SINUS TACHYCARDIA WITH SHORT WA NONSPECIFIC T WAVE ABNORMALITY WHEN COMPARED WITH ECG OF 01-OCT-2018 01:23, NONSPECIFIC T WAVE ABNORMALITY NOW EVIDENT IN LATERAL LEADS QT HAS LENGTHENED Confirmed by ASHA LEAHY, TAYE ([id number]) on 11/11/2018 11:28:30 AM Referred By: RENETTA Confirmed By:TAYE BARRY MD
== END 2018-11-10 23:23 | disposition home or self-care (01) ==
LOC: FER 20:37
PROC: 3E013VG Introduction of Insulin into Subcutaneous Tissue, Percutaneous Approach (ICD-10-PCS; principal; 2018-11-10)
PROC: 3E0337Z Introduction of Electrolytic and Water Balance Substance into Peripheral Vein, Percutaneous Approach (ICD-10-PCS; 2018-11-10)
DX: E11.65 Type 2 diabetes mellitus with hyperglycemia (principal)
CPT/HCPCS: 36415; 80053; 81003; 82550; 82962; 84484; 85025; 93005; 99282-25; J7030

== ENCOUNTER 2021-09-05 16:54 | Observation (INO) | payer BC ==
[2021-09-05] MEDS ORDERED: VANCOMYCIN 1 GM in D5W (PRE-DOCKED) 1,000 MG/250 ML IVPB ONE (18:44)
[2021-09-05] MEDS ORDERED: CIPROFLOXACIN 400 MG/D5W 400 MG/200 ML IVPB IVPB ONE ×2 (18:46→18:51)
[2021-09-05] MEDS ORDERED: VANCOMYCIN 1,000 MG VIAL (RESTRICTED TO ID ONLY) ONE (18:51)
[2021-09-05 20:15] LABS: ALBUMIN 3.6 g/dl (3.4-5.0); BILIRUBIN,TOTAL 0.6 mg/dl (0.2-1); CALCIUM 9.3 mg/dl (8.5-10); TOT PROT 6.6 g/dl (6.4-8.2)
[2021-09-05 21:07] LABS: BASO % 0.3 % (0-2.0); EOS % 0.1 % (0-4.5); HEMATOCRIT 39.2 % (35.4-49); HEMOGLOBIN 13.3 GM/dL (11.7-16.9); MCH 29.9 pg (25.7-33.7); MCHC 33.9 g/dl (32.0-35.9); MEAN CELL VOLUME 88.3 fl (80-96); MEAN PLT VOLUME 8.1 fl (7.5-11.1); MONO % 6.2 % (3.8-10.2); NEUT % 85.4 % (42.8-82.8); PLATELET COUNT 281 10^3/uL (134-434); RBC 4.44 M/mm3 (4.00-5.60); RDW 14.8 % (11.9-15.9); WHITE BLOOD COUNT 10.1 K/mm3 (4.0-10.0)
[2021-09-06] MEDS ORDERED: VANCOMYCIN PREMIX 1.75 GM 1,750 MG/350 ML PIGGYBACK IVPB ONE (00:25)
[2021-09-06 03:49] VITALS: BMI 35.5
[2021-09-06] MEDS ORDERED: INSULIN SLIDING SCALE (NOVOLOG) 1 VIAL SQ SCH (07:00)
[2021-09-06] MEDS ORDERED: VANCOMYCIN PREMIX 1.75 GM 1,750 MG/350 ML PIGGYBACK IVPB SCH (09:00)
[2021-09-06 09:30] LABS: CALCIUM 8.7 mg/dl (8.5-10)
[2021-09-06] MEDS ORDERED: ALLOPURINOL 300 MG TABLET (FP) PO SCH (10:00)
[2021-09-06] MEDS ORDERED: ENOXAPARIN NA (PORCINE) 40 MG/0.4 ML DISP.SYRIN SQ SCH (10:30)
[2021-09-06 11:53] LABS: HEMOGLOBIN 13.1 GM/dL (11.7-16.9); MCH 28.8 pg (25.7-33.7); MCHC 32.7 g/dl (32.0-35.9); MEAN CELL VOLUME 88.1 fl (80-96); MEAN PLT VOLUME 8.5 fl (7.5-11.1); PLATELET COUNT 250 10^3/uL (134-434); RBC 4.54 M/mm3 (4.00-5.60); RDW 15.3 % (11.9-15.9); WHITE BLOOD COUNT 8.6 K/mm3 (4.0-10.0)
[2021-09-06 14:05] VITALS: BP 166/90; PULSE 75; TEMP 98.2
[2021-09-06 14:31] LABS: ANISOCYTOSIS 0; MACROCYTOSIS 0
[2021-09-07] MEDS ORDERED: VANCOMYCIN PREMIX 1.75 GM 1,750 MG/350 ML PIGGYBACK IVPB SCH (09:00)
== END 2021-09-06 14:39 | disposition left against medical advice (07) ==
LOC: FER 16:54 → FM/S 23:48 → UNDOADMOB 09-06 01:16 → FM/S 09-06 01:16
PROVIDERS: ADMIT Hospitalist; ATTEND Nurse Practitioner Family
DX: E11.621 Type 2 diabetes mellitus with foot ulcer (principal); L97.521 Non-pressure chronic ulcer of other part of left foot limited to breakdown of skin; I10 Essential (primary) hypertension; E78.5 Hyperlipidemia, unspecified; Z88.0 Allergy status to penicillin; M19.90 Unspecified osteoarthritis, unspecified site
CPT/HCPCS: 36415; 71045-TC-FY; 73630-TC-LT; 80048; 80053; 82962; 83036; 84550; 85025; 87426; 93005; 96365; 99285-25; C9803-CS; G0378; J3370; U0003; U0005

== ENCOUNTER 2021-10-15 17:34 | Emergency (ER) | payer BC ==
[2021-10-15 17:55] VITALS: BP 160/99; PULSE 87; TEMP 98.6; BMI 35.9
[2021-10-15] MEDS ORDERED: IBUPROFEN 400 MG TABLET (FP) PO ONE ×2 (18:04→18:07)
[2021-10-15 18:50] LABS: ALBUMIN 3.4 g/dl (3.4-5.0); BILIRUBIN,TOTAL 0.5 mg/dl (0.2-1); CREATININE 1.8 mg/dl (0.55-1.3); TOT PROT 6.4 g/dl (6.4-8.2)
== END 2021-10-15 20:21 | disposition home or self-care (01) ==
LOC: FER 17:34
DX: N23 Unspecified renal colic (principal)
CPT/HCPCS: 36415; 74176-TC; 80053; 81003; 81015; 87086; 99284-25

== ENCOUNTER 2022-05-20 18:32 | Inpatient (IN) | payer BC ==
[2022-05-20] MEDS ORDERED: SODIUM CHLORIDE 0.9% 500 ML INFUS.BAG IV ONE (18:36)
[2022-05-20 19:04] LABS: HEMATOCRIT 43.8 % (35.4-49); HEMOGLOBIN 15.3 G/dL (11.7-16.9); MCH 31.6 pg (25.7-33.7); MCHC 34.9 g/dl (32.0-35.9); MEAN CELL VOLUME 90.7 fl (80-96); MEAN PLT VOLUME 9.8 fl (7.5-11.1); PLATELET COUNT 239.7 10^3/uL (134-434); RBC 4.83 10^6/uL (4.00-5.60); RDW 14.7 % (11.9-15.9); WHITE BLOOD COUNT 10.1 10^3/uL (4.0-10.8)
[2022-05-20 19:19] LABS: ALBUMIN 3.8 g/dl (3.4-5.0); BILIRUBIN,TOTAL 0.5 mg/dl (0.2-1); CALCIUM 9.1 mg/dl (8.5-10); CREATININE 1.4 mg/dl (0.55-1.3); MAGNESIUM 2.4 mg/dL (1.8-2.4); TOT PROT 6.7 g/dl (6.4-8.2)
[2022-05-20 19:56] LABS: VENOUS BASE EXCESS -1.8 mmol/L (-2-2); VENOUS PCO2 47.4 mmHg (38-52); VENOUS PH 7.333 (7.310-7.410)
[2022-05-20] MEDS ORDERED: SODIUM CHLORIDE 1,000 ML IV STA ×2 (20:17→21:24)
[2022-05-20 21:04] LABS: PLATELET ESTIMATE ADEQUATE
[2022-05-20 21:16] LABS: CALCIUM 8.4 mg/dl (8.5-10); CREATININE 1.3 mg/dl (0.55-1.3)
[2022-05-20] MEDS ORDERED: INSULIN REGULAR HUMAN 100 UNITS/ML *VIAL SQ ONE (21:24)
[2022-05-20] MEDS ORDERED: INSULIN REGULAR HUMAN 100 UNITS/ML *VIAL ONE (21:27)
[2022-05-20 23:28] LABS: CALCIUM 8.1 mg/dl (8.5-10); CREATININE 1.3 mg/dl (0.55-1.3)
[2022-05-20] MEDS ORDERED: SODIUM CHLORIDE 0.9%/KCL 20 MEQ/1,000 ML INFUS.BAG IV SCH (23:45)
[2022-05-20] MEDS ORDERED: POTASSIUM CHLORIDE TABS 20 MEQ TABLET.ER (FP) PO ONE (23:57)
[2022-05-20] MEDS ORDERED: DOCUSATE SODIUM 100 MG CAPSULE (FP) PO PRN (23:58)
[2022-05-20] MEDS ORDERED: ACETAMINOPHEN 325 MG TABLET (FP) PO PRN (23:58)
[2022-05-21] MEDS ORDERED: SODIUM CHLORIDE 0.9%/KCL 20 MEQ/1,000 ML INFUS.BAG IV SCH (00:05)
[2022-05-21] MEDS ORDERED: POTASSIUM CHLORIDE TABS 20 MEQ TABLET.ER (FP) PO ONE (00:54)
[2022-05-21] MEDS ORDERED: KCL 10 MEQ IVPB 20 MEQ/200 ML INFUS.BAG IVPB ONE (00:54)
[2022-05-21] MEDS: INSULIN SLIDING SCALE (NOVOLOG) 1 VIAL SQ SCH ×3 (01:06→12:54)
[2022-05-21] MEDS ORDERED: INSULIN (NOVOLOG) ASPART 100 UNITS/ML 10ML VIAL ONE (01:07)
[2022-05-21 01:44] LABS: INR 0.97 (0.83-1.09); PROTHROMBIN TIME (PATIENT) 11.1 SEC (9.7-13.0)
[2022-05-21 01:46] LABS: ACTIVATED PTT 26.1 SECONDS (25.2-36.5)
[2022-05-21 02:01] LABS: CALCIUM 7.8 mg/dL (8.5-10.1)
[2022-05-21 02:02] LABS: BLOOD UREA NITROGEN 19.1 mg/dL (7-18)
[2022-05-21 02:05] LABS: CREATININE 1.1 mg/dL (0.55-1.3); PHOSPHOROUS 2.7 mg/dL (2.5-4.9)
[2022-05-21 04:58] LABS: HEMATOCRIT 37.4 % (35.4-49); HEMOGLOBIN 13.1 GM/dL (11.7-16.9); MCH 31.5 pg (25.7-33.7); MCHC 35.1 g/dl (32.0-35.9); MEAN CELL VOLUME 89.8 fl (80-96); MEAN PLT VOLUME 8.9 fl (7.5-11.1); PLATELET COUNT 184 10^3/uL (134-434); RBC 4.16 M/mm3 (4.00-5.60); WHITE BLOOD COUNT 8.4 K/mm3 (4.0-10.0)
[2022-05-21 05:17] LABS: CALCIUM 7.8 mg/dL (8.5-10.1)
[2022-05-21 05:19] LABS: BLOOD UREA NITROGEN 16.3 mg/dL (7-18)
[2022-05-21 07:04] VITALS: RESP 18; BMI 35.4
[2022-05-21 07:32] LABS: MAGNESIUM 2.1 mg/dL (1.8-2.4); PHOSPHOROUS 2.6 mg/dL (2.5-4.9)
[2022-05-21 08:56] VITALS: BP 149/83; PULSE 70; TEMP 98.5
[2022-05-21] MEDS ORDERED: LOSARTAN POTASSIUM 50 MG TABLET PO SCH (10:00)
[2022-05-21] MEDS ORDERED: ENOXAPARIN NA (PORCINE) 40 MG/0.4 ML DISP.SYRIN SQ SCH (10:00)
[2022-05-21] MEDS ORDERED: ALLOPURINOL 300 MG TABLET (FP) PO SCH (10:00)
[2022-05-21] MEDS ORDERED: INSULIN (LEVEMIR) 100 UNITS/ML UNITS SQ SCH (10:00)
[2022-05-21] MEDS ORDERED: ATORVASTATIN CA 40 MG TABLET (FP) PO SCH (22:00)
== END 2022-05-21 15:19 | disposition home or self-care (01) | DRG 638 ==
LOC: FER 18:32 → FM/S 05-21 00:12
PROVIDERS: ADMIT Internal Medicine
DX: E11.65 Type 2 diabetes mellitus with hyperglycemia (principal); N17.9 Acute kidney failure, unspecified; I10 Essential (primary) hypertension; E78.5 Hyperlipidemia, unspecified; E66.9 Obesity, unspecified; Z68.35 Body mass index [BMI] 35.0-35.9, adult; E86.0 Dehydration; Z91.14 Patient's other noncompliance with medication regimen
CPT/HCPCS: 0241U-QW; 36415; 71045-TC-FY; 80048; 80053; 81003; 82010; 82803; 82962; 83735; 83930; 83935; 84100; 84484; 85025; 85027; 85610; 85730; 87086; 93005; 99285-25

== ENCOUNTER 2022-12-10 17:03 | Inpatient (IN) | payer BC ==
[2022-12-10 17:51] LABS: HEMATOCRIT 41.7 % (35.4-49); HEMOGLOBIN 14.1 G/dL (11.7-16.9); MCH 31.7 pg (25.7-33.7); MCHC 33.9 g/dl (32.0-35.9); MEAN CELL VOLUME 93.8 fl (80-96); MEAN PLT VOLUME 9.2 fl (7.5-11.1); PLATELET COUNT 167.7 10^3/uL (134-434); RBC 4.45 10^6/uL (4.00-5.60); RDW 14.1 % (11.9-15.9); WHITE BLOOD COUNT 10.1 10^3/uL (4.0-10.8)
[2022-12-10 17:53] LABS: INR 1.03 (0.83-1.09); PROTHROMBIN TIME (PATIENT) 11.8 SEC (9.7-13.0)
[2022-12-10 18:00] LABS: ALBUMIN 3.4 g/dl (3.4-5.0); BILIRUBIN,TOTAL 0.4 mg/dl (0.2-1); CALCIUM 8.6 mg/dl (8.5-10); CREATININE 1.1 mg/dl (0.55-1.3); POTASSIUM 3.6 mmol/L (3.5-5.1); TOT PROT 6.2 g/dl (6.4-8.2)
[2022-12-10 18:02] LABS: PLATELET ESTIMATE ADEQUATE
[2022-12-10 19:38] LABS: N-TERMINAL BNP 84.2 pg/ml (5-125)
[2022-12-10 20:02] VITALS: BMI 35.1
[2022-12-10] MEDS ORDERED: ENOXAPARIN NA (PORCINE) 120 MG/0.8 ML DISP.SYRIN SQ SCH (20:15)
[2022-12-10] MEDS ORDERED: ENOXAPARIN NA (PORCINE) 100 MG/1 ML DISP.SYRIN SQ ONE (20:18)
[2022-12-10] MEDS: INSULIN SLIDING SCALE (NOVOLOG) 1 VIAL SQ SCH (23:09)
[2022-12-11] MEDS: INSULIN SLIDING SCALE (NOVOLOG) 1 VIAL SQ SCH ×4 (06:50→21:45)
[2022-12-11 08:31] LABS: BILIRUBIN,TOTAL 0.6 mg/dl (0.2-1); CALCIUM 8.8 mg/dl (8.5-10); CREATININE 1.1 mg/dl (0.55-1.3); POTASSIUM 4.2 mmol/L (3.5-5.1); TOT PROT 5.8 g/dl (6.4-8.2)
[2022-12-11] MEDS: ENOXAPARIN NA (PORCINE) 120 MG/0.8 ML DISP.SYRIN SQ SCH ×3 (08:50→22:30)
[2022-12-11] MEDS: ALLOPURINOL 300 MG TABLET (FP) PO SCH (09:29)
[2022-12-11] MEDS: LOSARTAN POTASSIUM 50 MG TABLET PO SCH (09:29)
[2022-12-11] MEDS: ASPIRIN COATED 81 MG TABLET.EC PO SCH (09:29)
[2022-12-11] MEDS: ACETAMINOPHEN 500 MG TABLET (FP) PO SCH ×2 (19:23→21:12)
[2022-12-11] MEDS: ROSUVASTATIN CA 20 MG TABLET PO SCH (21:13)
[2022-12-11] MEDS ORDERED: INSULIN (NOVOLOG) ASPART 100 UNITS/ML 10ML VIAL ONE (21:41)
[2022-12-12] MEDS: ACETAMINOPHEN 500 MG TABLET (FP) PO SCH ×3 (02:53→17:33)
[2022-12-12] MEDS: INSULIN SLIDING SCALE (NOVOLOG) 1 VIAL SQ SCH ×4 (06:05→22:00)
[2022-12-12] MEDS: LOSARTAN POTASSIUM 50 MG TABLET PO SCH (09:28)
[2022-12-12] MEDS: ASPIRIN COATED 81 MG TABLET.EC PO SCH (09:28)
[2022-12-12] MEDS: ALLOPURINOL 300 MG TABLET (FP) PO SCH (09:28)
[2022-12-12] MEDS: ENOXAPARIN NA (PORCINE) 120 MG/0.8 ML DISP.SYRIN SQ SCH ×2 (09:30→21:38)
[2022-12-12] MEDS: ROSUVASTATIN CA 20 MG TABLET PO SCH (21:38)
[2022-12-12] MEDS ORDERED: INSULIN (NOVOLOG) ASPART 100 UNITS/ML 10ML VIAL ONE (22:01)
[2022-12-13] MEDS: ACETAMINOPHEN 500 MG TABLET (FP) PO SCH ×3 (03:26→17:15)
[2022-12-13] MEDS: INSULIN SLIDING SCALE (NOVOLOG) 1 VIAL SQ SCH ×4 (06:05→21:40)
[2022-12-13 08:38] LABS: EOS % 2.8 % (0-4.5); HEMATOCRIT 42.8 % (35.4-49); HEMOGLOBIN 14.8 GM/dL (11.7-16.9); LYMPH % 22.4 % (8-40); MCH 31.3 pg (25.7-33.7); MCHC 34.6 g/dl (32.0-35.9); MEAN CELL VOLUME 90.4 fl (80-96); MEAN PLT VOLUME 8.5 fl (7.5-11.1); NEUT % 64.8 % (42.8-82.8); PLATELET COUNT 203 10^3/uL (134-434); RBC 4.73 M/mm3 (4.00-5.60); RDW 14.6 % (11.9-15.9); WHITE BLOOD COUNT 8.1 K/mm3 (4.0-10.0)
[2022-12-13] MEDS: ASPIRIN COATED 81 MG TABLET.EC PO SCH (09:19)
[2022-12-13] MEDS: LOSARTAN POTASSIUM 50 MG TABLET PO SCH (09:19)
[2022-12-13] MEDS: ALLOPURINOL 300 MG TABLET (FP) PO SCH (09:19)
[2022-12-13] MEDS: ENOXAPARIN NA (PORCINE) 120 MG/0.8 ML DISP.SYRIN SQ SCH (10:53)
[2022-12-13] MEDS: ENOXAPARIN 30 MG, ENOXAPARIN 80 MG SQ SCH ×2 (10:54→21:40)
[2022-12-13 10:59] LABS: BILIRUBIN,TOTAL 0.5 mg/dL (0.2-1); BLOOD UREA NITROGEN 11.7 mg/dL (7-18); CALCIUM 8.6 mg/dL (8.5-10.1); CREATININE 0.9 mg/dL (0.55-1.3); POTASSIUM 4.3 mmol/L (3.5-5.1); TOT PROT 6.4 g/dl (6.4-8.2)
[2022-12-13 14:05] VITALS: RESP 18
[2022-12-13] MEDS: ROSUVASTATIN CA 20 MG TABLET PO SCH (21:40)
[2022-12-14] MEDS: ACETAMINOPHEN 500 MG TABLET (FP) PO SCH ×2 (02:00→09:11)
[2022-12-14] MEDS: INSULIN SLIDING SCALE (NOVOLOG) 1 VIAL SQ SCH ×2 (06:03→11:47)
[2022-12-14] MEDS: ASPIRIN COATED 81 MG TABLET.EC PO SCH (09:12)
[2022-12-14] MEDS: ALLOPURINOL 300 MG TABLET (FP) PO SCH (09:12)
[2022-12-14] MEDS: LOSARTAN POTASSIUM 50 MG TABLET PO SCH (09:12)
[2022-12-14] MEDS: ENOXAPARIN 30 MG, ENOXAPARIN 80 MG SQ SCH (09:13)
[2022-12-14 10:44] VITALS: BP 134/85; PULSE 81; TEMP 98.7
[2022-12-14] MEDS ORDERED: APIXABAN 5 MG TABLET PO SCH (22:00)
== END 2022-12-14 15:06 | disposition home or self-care (01) | DRG 176 ==
LOC: FER 17:03 → FM/S 20:01 → J4W 12-11 17:25
PROVIDERS: ADMIT Internal Medicine
DX: I26.99 Other pulmonary embolism without acute cor pulmonale (principal); I82.402 Acute embolism and thrombosis of unspecified deep veins of left lower extremity; I10 Essential (primary) hypertension; E11.9 Type 2 diabetes mellitus without complications; E78.5 Hyperlipidemia, unspecified; M10.9 Gout, unspecified; E66.9 Obesity, unspecified; Z68.35 Body mass index [BMI] 35.0-35.9, adult
CPT/HCPCS: 0241U-QW; 36415; 71045-TC-FY; 71275-TC; 80053; 81003; 81015; 82962; 83880; 84155; 84165; 84484; 85025; 85027; 85379; 85610; 93005; 93306-TC; 93971-TC; 94761; 97116-GP; 97162-GP; 99285-25; Q9967